=== PATIENT | male | born 1950 | race Caucasian/White ===

== ENCOUNTER 2021-12-10 17:28 | Inpatient (IN) ==
[2021-12-10] MEDS ORDERED: SODIUM CHLORIDE 0.9% 250 ML IV PRN (17:48)
--- NOTE | 2021-12-10 18:04 | Emergency Department Note ---
Impression & Plan Fever, Neutropenia, COVID-19, Anemia, Multiple myeloma, Hypomagnesemia ED Provider Note NAME: KEIRA REYNOLDS JR AGE: 71 SEX: M : 1950 ARRIVES VIA: Walk-In INFORMANT: [Patient] ED PROVIDER(S): [Kirk Thomas MD] CHIEF COMPLAINT: DrSony Hernandez HISTORY OF PRESENT ILLNESS: The patient is a 71-year-old male with a history of multiple myeloma. He has undergone a stem cell transplant. He receives IV chemotherapy with the last dose on the of this month, 9 days ago. The patient states that he began with a cough and feeling tired and somewhat short of breath about a week ago. 4 days ago, he tested positive for COVID. Since testing positive, he has develope d a fever. The patient was seen at the [facility]. His hemoglobin was found to be around 6. He was told that he required a hospital stay. He left [place] and came here as this is the hospital where he gets all of his care. 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 The patient admits to diarrhea but this is chronic. There has been no vomiting. He does not have any new pain. The patient was told by his doctor that he likely would need a hospital stay and may be even a red blood cell transfusion. REVIEW OF SYSTEMS: See HPI for pertinent positives and negatives. A total of ten systems were reviewed and were otherwise negative. PMHx/PSHx: See Below SOCIAL HISTORY: See Below. PHYSICAL EXAM: GENERAL: Patient is in no acute distress. HEENT: No acute trauma, normocephalic atraumatic, mucous membranes moist, no nasal congestion, no scleral icterus. NECK: No stridor, no adenopathy, no meningismus, trachea is midline. LUNGS: Clear to auscultation bilaterally, no wheeze, no rhonchi, breath sounds equal. HEART: Mildly tachycardic, regular rhythm, no murmurs. ABDOMEN: Soft, nontender, bowel sounds positive, no peritonitis. EXTREMITIES: No cyanosis or edema, full range of motion of all the joints without pain or difficulty, no signs for acute trauma. NEUROLOGIC: Oriented x 3, no acute motor or sensory deficits, no focal weakness. SKIN: No rash, no jaundice, no diaphoresis. Pale. DIFFERENTIAL DIAGNOSIS: Sepsis, UTI, COVID-19, influenza, pneumonia, metabolic abnormality, electrolyte abnormalities, cardiac sources, cellulitis, bacteremia, intracerebral event, anemia, toxicologic etiology, neurologic event, as well as other pathologies. EMERGENCY DEPARTMENT COURSE/PROCEDURES: ECG: Indication was weakness and shortness of breath. The ECG shows a normal sinus rhythm with a rate of 99. There is an old inferior infarct. There is no ST elevation, no PVCs. The QTc is 482 Continuous Cardiac Monitoring: An order was placed for continuous cardiac monitoring. The monitor shows a rate of 104 with sinus tachycardia. Critical Care Note: I have personally spent 48 minutes of critical care time in the direct management of this patient. This includes bedside care, interpretation of diagnostic studies, and testing, discussion with consultants, patient, and family members, and other required patient management activities. This 48 minutes is in excess of all separately billable procedures. MEDICAL DECISION MAKING: There is a neutropenia noted. Total ANC was 0.8. The patient was anemic with a hemoglobin of 9. Platelet count was low at 38. No concerning coagulopathy. Magnesium low 1.4, no renal failure. Lactic acid level is not elevated making severe sepsis less likely. No concerning liver enzyme elevation. ECG shows a normal sinus rhythm, no obvious ischemia. Cardiac enzyme testing x1 is very slightly elevated, likely from mismatch although, this troponin can be trended. Respiratory bio fire testing was positive for COVID-19. Chest x-ray did not show pneumonia or CHF. On exam, the patient was febrile and mildly tachycardic. Patient was given IV magnesium, he was given oral Tylenol. The patient is neutropenic with a fever. He is short of breath and coughing. He has COVID-19. His magnesium is quite low. With his health issues, with his complaints, I do think a hospital stay is warranted. 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 The on-call hospitalist was consulted. Past Med/Surg History Medical History Multiple myeloma Social History Smoking Status: Never smoker Preferred Language: Kyrgyz Feels Safe at Home: Yes Results & Data (ED) Vital Signs Vital Signs - 24 hr 12/10/21 17:30 12/10/21 18:42 12/10/21 19:51 Temperature 37.6 C H 38 C H Temperature Source Temporal Artery Scan Oral Pulse Rate 104 H Pulse Rate [Apical] 97 H 92 H Pulse Rhythm Regular Pulse Rhythm [Apical] Regular Pulse Strength [Apical] Normal Respiratory Rate 20 20 17 Respiratory Effort / Characteristics Non-Labored Non-Labored Spontaneous Respiratory Depth Normal Respiratory Pattern Regular Blood Pressure 139/64 Blood Pressure [Left Arm] 125/58 L 130/105 H Blood Pressure Mean 89 Blood Pressure Mean [Left Arm] 80 113 Blood Pressure Position Sitting Blood Pressure Position [Left Arm] Sitting Pulse Oximetry 94 96 97 Oxygen Delivery Method Room Air Room Air Room Air Sepsis Recent Fever Within 48 Hours Yes Sepsis New/Unexplained Change in Mental Status No Sepsis Action Taken by Nursing No Action Required Home Medications Current Medication List: was personally reviewed by me Laboratory Data Attestation: I reviewed the patient's lab results. Result diagrams: 12/10/21 18:35 12/10/21 18:35 Lab Results 12/10/21 12/10/21 12/10/21 Range/Units 18:17 18:35 18:35 WBC 1.47 L (4.8-10.8) K/uL RBC 3.48 L (4.7-6.1) M/uL Hgb 9.1 L (14.0-18.0) g/dL Hct 29.8 L (42-52) % MCV 85.6 (80-100) fL MCH 26.1 (25-34) pg MCHC 30.5 L (32-36) g/dL RDW Std Deviation 52.2 H (36.4-46.3) fL RDW Coeff of Zohra 16.6 H (11.5-14.5) % Plt Count 38 L (130-400) K/uL Neutrophils % (Manual) 58.3 % Lymphocytes % (Manual) 37.4 % Monocytes % (Manual) 4.3 % Neutrophils # (Manual) 0.86 L (1.4-6.5) K/uL Total Absolute Neuts 0.86 L* (1.4-6.5) K/uL Lymphocytes # (Manual) 0.55 L (1.2-3.4) K/uL Total Abs Lymphocytes 0.55 L (1.2-3.4) K/uL Monocytes # (Manual) 0.06 L (0.11-0.59) K/uL Platelet Estimate Decreased L (Normal) Giant Platelets 1+ Hypochromasia Present PT (9.0-12.0) Seconds INR (0.9-1.1) APTT (21.0-31.0) Seconds PTT Ratio Sodium (136-145) mmol/L Potassium (3.5-5.1) mmol/L Chloride (98-107) mmol/L Carbon Dioxide (21-32) mmol/L Anion Gap (3-11) BUN (6-23) mg/dl Creatinine (0.6-1.4) mg/dl Est Cr Clr Drug Dosing ml/min Est GFR ( Amer) ml/min Est GFR (Non-Af Amer) ml/min BUN/Creatinine Ratio (10-20) Glucose (70-99(Fasting)) mg/dl Lactate (0.4-2.0) mmol/L Calcium (8.5-10.1) mg/dl Magnesium (1.7-2.4) mg/dl Total Bilirubin (0.2-1.0) mg/dl AST (13-39) U/L ALT (7-52) U/L Alkaline Phosphatase (34-104) U/L Troponin I High Sens (0-20) pg/ml Total Protein (6.0-8.3) gm/dl Albumin (3.4-5.0) gm/dl Globulin (2.5-4.0) gm/dl Albumin/Globulin Ratio (0.9-2) Procalcitonin (0-0.5) ng/ml Adenovirus (PCR) Not Detected (NotDetected) B. pertussis DNA (PCR) Not Detected (NotDetected) B.parapertussis DNA PCR Not Detected (NotDetected) C. pneumoniae DNA (PCR) Not Detected (NotDetected) Coronavirus OC43 (PCR) Not Detected (NotDetected) Coronavirus HKU1 (PCR) Not Detected (NotDetected) Coronavirus 229E (PCR) Not Detected (NotDetected) SARS-CoV-2 (PCR) DETECTED A* (NotDetected) Coronavirus NL63 (PCR) Not Detected (NotDetected) Human Metapneumovir PCR Not Detected (NotDetected) Influenza Type A (PCR) Not Detected (NotDetected) Influenza Type B (PCR) Not Detected (NotDetected) M. pneumoniae (PCR) Not Detected (NotDetected) Parainfluenza 1 (PCR) Not Detected (NotDetected) Parainfluenza 2 (PCR) Not Detected (NotDetected) Parainfluenza 3 (PCR) Not Detected (NotDetected) Parainfluenza 4 (PCR) Not Detected (NotDetected) RSV (PCR) Not Detected (NotDetected) Entero/Rhino (PCR) Not Detected (NotDetected) Crossmatch See Detail 12/10/21 12/10/21 12/10/21 Range/Units 18:35 18:35 18:35 WBC (4.8-10.8) K/uL RBC (4.7-6.1) M/uL Hgb (14.0-18.0) g/dL Hct (42-52) % MCV (80-100) fL MCH (25-34) pg MCHC (32-36) g/dL RDW Std Deviation (36.4-46.3) fL RDW Coeff of Zohra (11.5-14.5) % Plt Count (130-400) K/uL Neutrophils % (Manual) % Lymphocytes % (Manual) % Monocytes % (Manual) % Neutrophils # (Manual) (1.4-6.5) K/uL Total Absolute Neuts (1.4-6.5) K/uL Lymphocytes # (Manual) (1.2-3.4) K/uL Total Abs Lymphocytes (1.2-3.4) K/uL Monocytes # (Manual) (0.11-0.59) K/uL Platelet Estimate (Normal) Giant Platelets Hypochromasia PT 11.7 (9.0-12.0) Seconds INR 1.1 (0.9-1.1) APTT 36.2 H (21.0-31.0) Seconds PTT Ratio 1.3 Sodium 140 (136-145) mmol/L Potassium 3.8 (3.5-5.1) mmol/L Chloride 109 H (98-107) mmol/L Carbon Dioxide 22 (21-32) mmol/L Anion Gap 9 (3-11) BUN 18 (6-23) mg/dl Creatinine 1.39 (0.6-1.4) mg/dl Est Cr Clr Drug Dosing 62.2 ml/min Est GFR ( Amer) 58.7 ml/min Est GFR (Non-Af Amer) 50.6 ml/min BUN/Creatinine Ratio 12.9 (10-20) Glucose 147 H (70-99(Fasting)) mg/dl Lactate 0.9 (0.4-2.0) mmol/L Calcium 8.2 L (8.5-10.1) mg/dl Magnesium 1.4 L (1.7-2.4) mg/dl Total Bilirubin 0.5 (0.2-1.0) mg/dl AST 20 (13-39) U/L ALT 20 (7-52) U/L Alkaline Phosphatase 34 (34-104) U/L Troponin I High Sens 22.1 H (0-20) pg/ml Total Protein 6.1 (6.0-8.3) gm/dl Albumin 3.6 (3.4-5.0) gm/dl Globulin 2.5 (2.5-4.0) gm/dl Albumin/Globulin Ratio 1.4 (0.9-2) Procalcitonin (0-0.5) ng/ml Adenovirus (PCR) (NotDetected) B. pertussis DNA (PCR) (NotDetected) B.parapertussis DNA PCR (NotDetected) C. pneumoniae DNA (PCR) (NotDetected) Coronavirus OC43 (PCR) (NotDetected) Coronavirus HKU1 (PCR) (NotDetected) Coronavirus 229E (PCR) (NotDetected) SARS-CoV-2 (PCR) (NotDetected) Coronavirus NL63 (PCR) (NotDetected) Human Metapneumovir PCR (NotDetected) Influenza Type A (PCR) (NotDetected) Influenza Type B (PCR) (NotDetected) M. pneumoniae (PCR) (NotDetected) Parainfluenza 1 (PCR) (NotDetected) Parainfluenza 2 (PCR) (NotDetected) Parainfluenza 3 (PCR) (NotDetected) Parainfluenza 4 (PCR) (NotDetected) RSV (PCR) (NotDetected) Entero/Rhino (PCR) (NotDetected) Crossmatch 12/10/21 Range/Units 18:35 WBC (4.8-10.8) K/uL RBC (4.7-6.1) M/uL Hgb (14.0-18.0) g/dL Hct (42-52) % MCV (80-100) fL MCH (25-34) pg MCHC (32-36) g/dL RDW Std Deviation (36.4-46.3) fL RDW Coeff of Zohra (11.5-14.5) % Plt Count (130-400) K/uL Neutrophils % (Manual) % Lymphocytes % (Manual) % Monocytes % (Manual) % Neutrophils # (Manual) (1.4-6.5) K/uL Total Absolute Neuts (1.4-6.5) K/uL Lymphocytes # (Manual) (1.2-3.4) K/uL Total Abs Lymphocytes (1.2-3.4) K/uL Monocytes # (Manual) (0.11-0.59) K/uL Platelet Estimate (Normal) Giant Platelets Hypochromasia PT (9.0-12.0) Seconds INR (0.9-1.1) APTT (21.0-31.0) Seconds PTT Ratio Sodium (136-145) mmol/L Potassium (3.5-5.1) mmol/L Chloride (98-107) mmol/L Carbon Dioxide (21-32) mmol/L Anion Gap (3-11) BUN (6-23) mg/dl Creatinine (0.6-1.4) mg/dl Est Cr Clr Drug Dosing ml/min Est GFR ( Amer) ml/min Est GFR (Non-Af Amer) ml/min BUN/Creatinine Ratio (10-20) Glucose (70-99(Fasting)) mg/dl Lactate (0.4-2.0) mmol/L Calcium (8.5-10.1) mg/dl Magnesium (1.7-2.4) mg/dl Total Bilirubin (0.2-1.0) mg/dl AST (13-39) U/L ALT (7-52) U/L Alkaline Phosphatase (34-104) U/L Troponin I High Sens (0-20) pg/ml Total Protein (6.0-8.3) gm/dl Albumin (3.4-5.0) gm/dl Globulin (2.5-4.0) gm/dl Albumin/Globulin Ratio (0.9-2) Procalcitonin 0.35 (0-0.5) ng/ml Adenovirus (PCR) (NotDetected) B. pertussis DNA (PCR) (NotDetected) B.parapertussis DNA PCR (NotDetected) C. pneumoniae DNA (PCR) (NotDetected) Coronavirus OC43 (PCR) (NotDetected) Coronavirus HKU1 (PCR) (NotDetected) Coronavirus 229E (PCR) (NotDetected) SARS-CoV-2 (PCR) (NotDetected) Coronavirus NL63 (PCR) (NotDetected) Human Metapneumovir PCR (NotDetected) Influenza Type A (PCR) (NotDetected) Influenza Type B (PCR) (NotDetected) M. pneumoniae (PCR) (NotDetected) Parainfluenza 1 (PCR) (NotDetected) Parainfluenza 2 (PCR) (NotDetected) Parainfluenza 3 (PCR) (NotDetected) Parainfluenza 4 (PCR) (NotDetected) RSV (PCR) (NotDetected) Entero/Rhino (PCR) (NotDetected) Crossmatch Administered Medications Discontinued Medications Acetaminophen (Acetaminophen 500 Mg Tab) 1,000 mg PO NOW STA Stop: 12/10/21 20:13 Last Admin: 12/10/21 20:33 Dose: 1,000 mg Documented by: [id number] Magnesium Sulfate/Dextrose (Magnesium Sulfate / D5w) 1 gm in 100 mls @ 100 mls/hr IV NOW STA Stop: 12/10/21 21:11 Last Admin: 12/10/21 20:34 Dose: 100 mls/hr Documented by: [id number] Imaging Data Radiologist's Impression: Chest X-Ray 12/10/21 17:48 XR chest 1V portable CLINICAL HISTORY: SEPSIS TECHNIQUE: Single frontal radiograph of the chest was obtained. Comparison: None available at the time of this dictation. FINDINGS: No lines and tubes are seen. The cardiomediastinal silhouette is normal. The lungs are clear. No evidence of pleural effusion or pneumothorax. IMPRESSION: No acute abnormalities and in particular no evidence of pneumonia. ACT 112: Negative or not required by law. Electronically signed by: Parker Tripathi M.D. 12/10/2021 6:04 PM Discharge Plan Visit Data Chief Complaint: Referred by Doctor Stated Complaint: REF BY , BHAVANI PT, OBSERVATION ED Provider: Kirk Thomas Discharge Problem: Fever, Neutropenia, COVID-19, Anemia, Multiple myeloma, Hypomagnesemia Patient Disposition: Admitted As Inpatient Condition: Fair Forms Stand Alone Forms: [facility] Referrals Referrals: PCP,NO [Primary Care Provider] -
[2021-12-10 19:18] LABS: INR 1.1 (0.9-1.1); Partial Thromboplastin Ratio 1.3; Partial Thromboplastin Time 36.2 Seconds (21.0-31.0); Prothrombin Time 11.7 Seconds (9.0-12.0)
[2021-12-10 19:31] LABS: Troponin I High Sensitivity 22.1 pg/ml (0-20)
[2021-12-10 19:32] LABS: Albumin Globulin Ratio 1.4 (0.9-2); Albumin Level 3.6 gm/dl (3.4-5.0); BUN Creatinine Ratio 12.9 (10-20); Bilirubin,Total 0.5 mg/dl (0.2-1.0); Calcium 8.2 mg/dl (8.5-10.1); Creatinine Clr Calc Pharmacy 62.2 ml/min; Est GFR (African American) 58.7 ml/min; Est GFR (Non-African American) 50.6 ml/min; Globulin 2.5 gm/dl (2.5-4.0); Hematocrit (blood only) 29.8 % (42-52); Hemoglobin 9.1 g/dL (14.0-18.0); Magnesium 1.4 mg/dl (1.7-2.4); Mean Corpuscular Hemoglobin 26.1 pg (25-34); Mean Corpuscular Hgb Conc 30.5 g/dL (32-36); Mean Corpuscular Volume 85.6 fL (80-100); Potassium 3.8 mmol/L (3.5-5.1); RDW Coefficient of Variation 16.6 % (11.5-14.5); RDW Standard Deviation 52.2 fL (36.4-46.3); Red Blood Count 3.48 M/uL (4.7-6.1); Total Protein 6.1 gm/dl (6.0-8.3); White Blood Count 1.47 K/uL (4.8-10.8)
[2021-12-10 19:39] LABS: Platelet Count 38 K/uL (130-400)
[2021-12-10 19:40] LABS: Giant Platelets 1+; Hypochromasia Present; Platelet Estimate Decreased (Normal)
[2021-12-10 19:41] LABS: ALC (manual) 0.55 K/uL (1.2-3.4); ANC (manual) 0.86 K/uL (1.4-6.5); Lymphocytes # (manual) 0.55 K/uL (1.2-3.4); Lymphocytes % (manual) 37.4 %; Monocytes # (manual) 0.06 K/uL (0.11-0.59); Monocytes % (manual) 4.3 %; Neutrophils # (manual) 0.86 K/uL (1.4-6.5); Neutrophils % (manual) 58.3 %
[2021-12-10] MEDS ORDERED: ACETAMINOPHEN 500 MG TAB PO STA (20:12)
[2021-12-10] MEDS ORDERED: MAGNESIUM SULFATE / D5W 1 GM/100 ML BAG IV STA (20:12)
[2021-12-10 20:13] LABS: Adenovirus PCR Not Detected (NotDetected); Bordetella parapertussis PCR Not Detected (NotDetected); Bordetella pertussis PCR Not Detected (NotDetected); Chlamydia pneumoniae PCR Not Detected (NotDetected); Coronavirus 229E PCR Not Detected (NotDetected); Coronavirus HKU1 PCR Not Detected (NotDetected); Coronavirus NL63 PCR Not Detected (NotDetected); Coronavirus OC43PCR Not Detected (NotDetected); Human Metapneumovirus PCR Not Detected (NotDetected); Influenza A PCR Not Detected (NotDetected); Influenza B PCR Not Detected (NotDetected); Mycoplasma pneumoniae PCR Not Detected (NotDetected); Parainfluenza Virus 1 PCR Not Detected (NotDetected); Parainfluenza Virus 2 PCR Not Detected (NotDetected); Parainfluenza Virus 3 PCR Not Detected (NotDetected); Parainfluenza Virus 4 PCR Not Detected (NotDetected); Respiratory Syncytial VirusPCR Not Detected (NotDetected); Rhinovirus/Enterovirus PCR Not Detected (NotDetected)
[2021-12-10 20:19] LABS: Coronavirus CoV-2 (COVID19)PCR DETECTED (NotDetected)
[2021-12-10] MEDS ORDERED: MAGNESIUM SULFATE / D5W 1 GM/100 ML BAG IV ONE (21:05)
--- NOTE | 2021-12-10 22:11 | History & Physical Report ---
Date of Service December 10, 2021 Assessment & Plan (1) Sepsis: Plan: Secondary to COVID-19 pneumonia Immunocompromised patient. 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 No indication for antibiotics, steroid Rx for now. Patient may be eligible for Paxlovid given immunocompromise however medication is not available inpatient. Basal bolus insulin, ISS BG goal 1 10-1 40, carb count coverage, update hemogl obin A1c Dedicated imaging for left renal mass at some point. DVT prophylaxis. [employer] Full code Text document was generated using Lydia voice recognition software. It may contain grammatical or spelling errors. Kindly contact undersigned for clarification of any documentation item in question. History of Present Illness Chief Complaint: COVID-19 infection Primary Care Provider: Dr. Cardona History obtained from patient and records. 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 Last week, patient noted cough symptoms productive of clear sputum with fever. No chest pain, no shortness of breath. Fatigue symptoms and muscle aches. Possible COVID-19 contacts. Patient completed COVID-19 vaccination. Usual loose stools, achy right lower quadrant pain. Patient consulted [facility] ER. COVID-19 test positive. Admission recommended but patient signed out AGAINST MEDICAL ADVICE. Patient directed to [facility] ER by outpatient providers today for further evaluation. 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 Allergies Allergy/AdvReac Type Severity Reaction Status Date / Time doxycycline Allergy Diarrhea Verified 12/11/21 00:42 latex Allergy Rash Verified 12/11/21 00:42 Home Medications Medication Instructions Recorded Confirmed Type Acetaminophen Extra Strength 1 tab Q4 PRN 12/11/21 12/11/21 History Aspir-81 81 mg DAILY 12/11/21 12/11/21 History Lactobacillus acidophilus 1 tab DAILY 12/11/21 12/11/21 History acyclovir 800 mg tablet 800 mg BID 12/11/21 12/11/21 History apixaban 5 mg tablet (Eliquis) 5 mg HS 12/11/21 12/11/21 History cholecalciferol (vitamin D3) 1 tab DAILY 12/11/21 12/11/21 History dulaglutide 3 mg/0.5 mL 3 mg SUBCUT WK 12/11/21 12/11/21 History subcutaneous pen injector (Trulicity) duloxetine 60 mg capsule,delayed 60 mg PO BID 12/11/21 12/11/21 History release fenofibrate nanocrystallized 48 mg 48 mg PO DAILY 12/11/21 12/11/21 History tablet ferrous gluconate 324 mg (38 mg 325 mg DAILY 12/11/21 12/11/21 History iron) tablet insulin glargine 100 unit/mL (3 76 unit SUBCUT DAILY 12/11/21 12/11/21 History mL) subcutaneous pen (Lantus Solostar U-100 Insulin) losartan 25 mg tablet See Rx Instructions .ROUTE .COMPLEX 12/11/21 12/11/21 History magnesium oxide 400 mg DAILY 12/11/21 12/11/21 History metoprolol succinate 50 mg 50 mg PO DAILY 12/11/21 12/11/21 History tablet,extended release 24 hr multivitamin 1 tab DAILY 12/11/21 12/11/21 History omeprazole 40 mg capsule,delayed 40 mg DAILY 12/11/21 12/11/21 History release rosuvastatin 40 mg tablet 40 mg DAILY 12/11/21 12/11/21 History sertraline 200 mg capsule 200 mg PO DAILY 12/11/21 12/11/21 History simethicone See Rx Instructions .ROUTE .COMPLEX 12/11/21 12/11/21 History trazodone 100 mg tablet 100 mg HS 12/11/21 12/11/21 History Past Med/Surg History Medical History Multiple myeloma Social History Smoking Status: Never smoker Second Hand Exposure: No; Do You Dip or Chew Tobacco: No; Hx Alcohol Use: No Hx Substance Use: No Preferred Language: Venezuelan Communication Ability: Effective Production Grip Required: No Beliefs That Will Affect Care: None Current Living Situation: Alone Feels Safe at Home: Yes Safety Concerns: Feels Safe At This Time Assistive Devices: Glasses Assistive Devices Comment: upper and lower partials- at home Review of Systems Review of Systems: As per HPI, all other systems reviewed and negative Physical Exam Physical Exam: GENERAL: Comfortable, morbidly obese, no respiratory distress SKIN: Pallor, warm HEENT: Pale palpebral conjunctivae, no ptosis, dry buccal mucosa NECK : Supple, short neck, no tenderness CHEST : Decreased breath sounds, no tenderness HEART : RRR, no obvious murmurs ABDOMEN: Some distention, nontender EXTREMITIES : Bilateral LE swelling, no LE tenderness, no other conspicuous deformities noted NEUROLOGIC : Coherent, no facial asymmetry, no other gross focality Results & Data Results & Data ([facility]) Vital Signs (Past 12 Hours) Vital Signs Temp Pulse Pulse Resp BP BP Pulse Ox 12/10/21 19:51 38 C H 92 H 17 130/105 H 97 12/10/21 18:42 97 H 20 125/58 L 96 12/10/21 17:30 37.6 C H 104 H 20 139/64 94 Laboratory Results Laboratory Results WBC 1.47 K/uL (4.8-10.8) L 12/10/21 18:35 RBC 3.48 M/uL (4.7-6.1) L 12/10/21 18:35 Hgb 9.1 g/dL (14.0-18.0) L 12/10/21 18:35 Hct 29.8 % (42-52) L 12/10/21 18:35 MCV 85.6 fL (80-100) 12/10/21 18:35 MCH 26.1 pg (25-34) 12/10/21 18:35 MCHC 30.5 g/dL (32-36) L 12/10/21 18:35 RDW Std Deviation 52.2 fL (36.4-46.3) H 12/10/21 18:35 RDW Coeff of Zohra 16.6 % (11.5-14.5) H 12/10/21 18:35 Plt Count 38 K/uL (130-400) L 12/10/21 18:35 Neutrophils % (Manual) 58.3 % 12/10/21 18:35 Lymphocytes % (Manual) 37.4 % 12/10/21 18:35 Monocytes % (Manual) 4.3 % 12/10/21 18:35 Neutrophils # (Manual) 0.86 K/uL (1.4-6.5) L 12/10/21 18:35 Total Absolute Neuts 0.86 K/uL (1.4-6.5) L* 12/10/21 18:35 Lymphocytes # (Manual) 0.55 K/uL (1.2-3.4) L 12/10/21 18:35 Total Abs Lymphocytes 0.55 K/uL (1.2-3.4) L 12/10/21 18:35 Monocytes # (Manual) 0.06 K/uL (0.11-0.59) L 12/10/21 18:35 Platelet Estimate Decreased (Normal) L 12/10/21 18:35 Giant Platelets 1+ 12/10/21 18:35 Hypochromasia Present 12/10/21 18:35 PT 11.7 Seconds (9.0-12.0) 12/10/21 18:35 INR 1.1 (0.9-1.1) 12/10/21 18:35 APTT 36.2 Seconds (21.0-31.0) H 12/10/21 18:35 PTT Ratio 1.3 12/10/21 18:35 Sodium 140 mmol/L (136-145) 12/10/21 18:35 Potassium 3.8 mmol/L (3.5-5.1) 12/10/21 18:35 Chloride 109 mmol/L (98-107) H 12/10/21 18:35 Carbon Dioxide 22 mmol/L (21-32) 12/10/21 18:35 Anion Gap 9 (3-11) 12/10/21 18:35 BUN 18 mg/dl (6-23) 12/10/21 18:35 Creatinine 1.39 mg/dl (0.6-1.4) 12/10/21 18:35 Est Cr Clr Drug Dosing 62.2 ml/min 12/10/21 18:35 Est GFR ( Amer) 58.7 ml/min 12/10/21 18:35 Est GFR (Non-Af Amer) 50.6 ml/min 12/10/21 18:35 BUN/Creatinine Ratio 12.9 (10-20) 12/10/21 18:35 Glucose 147 mg/dl (70-99(Fasting)) H 12/10/21 18:35 Lactate 0.9 mmol/L (0.4-2.0) 12/10/21 18:35 Calcium 8.2 mg/dl (8.5-10.1) L 12/10/21 18:35 Magnesium 1.4 mg/dl (1.7-2.4) L 12/10/21 18:35 Total Bilirubin 0.5 mg/dl (0.2-1.0) 12/10/21 18:35 AST 20 U/L (13-39) 12/10/21 18:35 ALT 20 U/L (7-52) 12/10/21 18:35 Alkaline Phosphatase 34 U/L (34-104) 12/10/21 18:35 Troponin I High Sens 22.1 pg/ml (0-20) H 12/10/21 18:35 Total Protein 6.1 gm/dl (6.0-8.3) 12/10/21 18:35 Albumin 3.6 gm/dl (3.4-5.0) 12/10/21 18:35 Globulin 2.5 gm/dl (2.5-4.0) 12/10/21 18:35 Albumin/Globulin Ratio 1.4 (0.9-2) 12/10/21 18:35 Procalcitonin 0.35 ng/ml (0-0.5) 12/10/21 18:35 Adenovirus (PCR) Not Detected (NotDetected) 12/10/21 18:17 B. pertussis DNA (PCR) Not Detected (NotDetected) 12/10/21 18:17 B.parapertussis DNA PCR Not Detected (NotDetected) 12/10/21 18:17 C. pneumoniae DNA (PCR) Not Detected (NotDetected) 12/10/21 18:17 Coronavirus OC43 (PCR) Not Detected (NotDetected) 12/10/21 18:17 Coronavirus HKU1 (PCR) Not Detected (NotDetected) 12/10/21 18:17 Coronavirus 229E (PCR) Not Detected (NotDetected) 12/10/21 18:17 SARS-CoV-2 (PCR) DETECTED (NotDetected) A* 12/10/21 18:17 Coronavirus NL63 (PCR) Not Detected (NotDetected) 12/10/21 18:17 Human Metapneumovir PCR Not Detected (NotDetected) 12/10/21 18:17 Influenza Type A (PCR) Not Detected (NotDetected) 12/10/21 18:17 Influenza Type B (PCR) Not Detected (NotDetected) 12/10/21 18:17 M. pneumoniae (PCR) Not Detected (NotDetected) 12/10/21 18:17 Parainfluenza 1 (PCR) Not Detected (NotDetected) 12/10/21 18:17 Parainfluenza 2 (PCR) Not Detected (NotDetected) 12/10/21 18:17 Parainfluenza 3 (PCR) Not Detected (NotDetected) 12/10/21 18:17 Parainfluenza 4 (PCR) Not Detected (NotDetected) 12/10/21 18:17 RSV (PCR) Not Detected (NotDetected) 12/10/21 18:17 Entero/Rhino (PCR) Not Detected (NotDetected) 12/10/21 18:17 Blood Type A Positive 12/10/21 18:56 Blood Type Recheck A Positive 12/10/21 19:40 Antibody Screen NEGATIVE 12/10/21 18:56 Crossmatch See Detail 12/10/21 18:35 Impressions Chest X-Ray 12/10/21 17:48 XR chest 1V portable CLINICAL HISTORY: SEPSIS TECHNIQUE: Single frontal radiograph of the chest was obtained. Comparison: None available at the time of this dictation. FINDINGS: No lines and tubes are seen. The cardiomediastinal silhouette is normal. The lungs are clear. No evidence of pleural effusion or pneumothorax. IMPRESSION: No acute abnormalities and in particular no evidence of pneumonia. ACT 112: Negative or not required by law. Electronically signed by: Parker Tripathi M.D. 12/10/2021 6:[address] abdomen pelvis: 1. Groundglass nodules in the bilateral lower lungs likely reflect infectious/inflammatory process. 2. 7 cm defect in the right abdominal wall with herniation of a loop of bowel. 3. Postsurgical changes in the cecum. 4. 13 mm exophytic lesion in the left kidney inferior pole may represent a fe nikhil lobulation or hemorrhagic/proteinaceous cyst, malignancy cannot be entirely excluded. If not previously evaluated, ultrasound and/or nonemergent CT or MR renal mass protocol can be performed. EKG as per my interpretation: Rate 100, NSR, normal axis, incomplete RBBB, T wave abnormalities inferior leads, inferior infarct
[2021-12-10] MEDS ORDERED: OPTIRAY 320 100ml IV ONE (22:30)
--- NOTE | 2021-12-10 22:54 | CT Scan Report ---
CT abd pelvis IV con only CLINICAL HISTORY: RLQ pain TECHNIQUE: Helical axial images of the abdomen and pelvis were obtained and displayed. Automated dose lowering techniques and/or adjustment according to patient size were utilized for this exam. This e xam was performed with intravenous contrast. CT DOSE: 1518.89 mGy.cm COMPARISON: None available at the time of this dictation. FINDINGS: Lower chest: Bibasilar opacities are seen in the bilateral lung bases. Liver: Unremarkable. No focal lesions are seen. Gallbladder and biliary tree: Patient is status post cholecystectomy. No intra- or extrahepatic bilia ry ductal dilation. Pancreas: Unremarkable, no focal lesions. Spleen: Unremarkable. Adrenals: Unremarkable. Kidneys and ureters: A 13 mm exophytic lesion is seen in the left kidney inferior pole. Patient is st atus post right nephrectomy. Bladder: Unremarkable. Reproductive organs: Unremarkable. Bowel: Postsurgical changes are seen in the cecum. Multiple loops of bowel are herniated through the right mid abdomen abdominal wall. Lymph nodes Retroperitoneal: Unremarkable. Mesenteric: Unremarkable. Pelvic: Unremarkable. Peritoneum: Normal. Vessels: Atherosclerotic calcifications are seen. Abdominal wall: Bilateral fat-containing inguinal hernias are seen. A right mid abdomen hernia with a 7 cm neck is seen containing multiple loops of bowel. Midline fat-containing hernia is in the upper abdomen. Bones: Degenerative changes in the visualized spine. IMPRESSION: 1. Groundglass nodules in the bilateral lower lungs likely reflect infectious/inflammatory process. 2. 7 cm defect in the right abdominal wall with herniation of a loop of bowel. 3. Postsurgical changes in the cecum. 4. 13 mm exophytic lesion in the left kidney inferior pole may represent a lobulation or hemor rhagic/proteinaceous cyst, malignancy cannot be entirely excluded. If not previously evaluated, ultra sound and/or nonemergent CT or MR renal mass protocol can be performed. ACT 112: Negative or not required by law. Electronically signed by: Parker Tripathi M.D. 12/10/2021 10:52 PM
[2021-12-10 23:15] LABS: Appearance Urine Clear (Clear); Bacteria Urine Automated Negative (Negative); Bilirubin Urine Negative (Negative); Blood Urine Negative (Negative); Cast Urine Automated 0 /lpf (0-5); Color Urine Yellow; Glucose Urine UA Negative (Negative); Ketones Urine Negative (Negative); Leukocyte Esterase Urine Negative (Negative); Nitrite Urine Negative (Negative); Protein Urine 2+ (Negative); RBC Urine Automated 0-4 /hpf (0-4); Specific Gravity Urine 1.017 (1.000-1.030); Urobilinogen Urine Negative (Negative); WBC Urine Automated 0 /hpf (0-5)
[2021-12-11] MEDS ORDERED: DEXTROSE 50% 50 ML SYRINGE IV PRN (00:14)
[2021-12-11] MEDS ORDERED: GLUCOSE 10 TAB/TUBE PO PRN (00:14)
[2021-12-11] MEDS ORDERED: CARBOHYDRATES FOR HYPOGLYCEMIA PO PRN (00:14)
[2021-12-11] MEDS ORDERED: GLUCAGON FOR INJ 1 MG VIAL SQ PRN (00:14)
[2021-12-11] MEDS ORDERED: LACTATED RINGER'S 1,000 ML IV ONE ×2 (00:14→20:39)
[2021-12-11] MEDS ORDERED: GLUCOSE 40% GEL 15 GM TUBE PO PRN (00:14)
[2021-12-11] MEDS ORDERED: APIXABAN 5 MG TABLET PO STA (00:26)
[2021-12-11] MEDS ORDERED: ACYCLOVIR 400 MG TAB PO STA (00:26)
[2021-12-11] MEDS: Patient's ALLERGY Info needs ENTERED SCH ×2 (00:43→01:24)
[2021-12-11] MEDS: INSULIN ASPART PER UNIT SC SCH ×5 (00:59→21:10)
[2021-12-11] MEDS ORDERED: Nursing to Pharmacy Communication SCH (01:00)
[2021-12-11] MEDS: traZODone HCL 100 MG TAB PO SCH ×2 (01:39→21:09)
[2021-12-11] MEDS: PANTOprazole 40 MG TAB PO SCH ×2 (01:40→21:09)
[2021-12-11 05:36] LABS: Mean Corpuscular Hgb Conc 31.2 g/dL (32-36)
[2021-12-11 05:51] LABS: BUN Creatinine Ratio 10.2 (10-20); Calcium 7.7 mg/dl (8.5-10.1); Creatinine Clr Calc Pharmacy 58.7 ml/min; Est GFR (African American) 54.8 ml/min; Est GFR (Non-African American) 47.3 ml/min; Potassium 3.9 mmol/L (3.5-5.1)
[2021-12-11 06:24] LABS: Hematocrit (blood only) 28.5 % (42-52); Hemoglobin 8.9 g/dL (14.0-18.0); Mean Corpuscular Hemoglobin 26.7 pg (25-34); Mean Corpuscular Volume 85.6 fL (80-100); RDW Coefficient of Variation 16.7 % (11.5-14.5); RDW Standard Deviation 53.2 fL (36.4-46.3); Red Blood Count 3.33 M/uL (4.7-6.1); White Blood Count 1.06 K/uL (4.8-10.8)
[2021-12-11 06:26] LABS: Platelet Count 41 K/uL (130-400)
[2021-12-11 06:28] LABS: Lymphocytes % (auto) 37.7 %; Monocytes # (auto) 0.12 K/uL (0.11-0.59); Monocytes % (auto) 11.3 %; Neutrophils # (auto) 0.54 K/uL (1.4-6.5); Platelet Estimate Decreased (Normal)
[2021-12-11] MEDS: SERTRALINE HCL 100 MG TABLET PO SCH (08:59)
[2021-12-11] MEDS: ACETAMINOPHEN 325 MG TAB PO PRN ×3 (08:59→21:08)
[2021-12-11] MEDS: FERROUS GLUCONATE 324 MG TAB PO SCH (09:00)
[2021-12-11] MEDS ORDERED: APIXABAN 2.5 MG TAB PO SCH (09:00)
[2021-12-11] MEDS ORDERED: APIXABAN 5 MG TABLET PO SCH (09:00)
[2021-12-11] MEDS ORDERED: LOSARTAN POTASSIUM 50 MG TAB PO SCH (09:00)
[2021-12-11] MEDS: FENOFIBRATE NANOCRYSTALLIZED 48 MG TABLET PO SCH (09:00)
[2021-12-11] MEDS ORDERED: INSULIN GLARGINE 100 UNIT/ML VIAL SQ SCH (09:00)
[2021-12-11] MEDS: METOPROLOL SUCC 50MG EXT REL TAB PO SCH (09:00)
[2021-12-11] MEDS: ACYCLOVIR 400 MG TAB PO SCH ×2 (09:01→21:09)
[2021-12-11] MEDS: ASPIRIN 81 MG ECTAB PO SCH (09:04)
[2021-12-11] MEDS: ROSUVASTATIN CALCIUM 20 MG TAB PO SCH (09:04)
[2021-12-11] MEDS: ADVANCED PROBIOTIC 1250 MG CAPSULE PO SCH (09:04)
[2021-12-11] MEDS: INSULIN GLARGINE SOLOSTAR 100 UNITS/ML 3 ML PEN SQ SCH (09:28)
[2021-12-11] MEDS: FILGRASTIM 300 MCG/ML VIAL SQ SCH (12:29)
[2021-12-11] MEDS ORDERED: REMDESIVIR 200 MG in SODIUM CHLORIDE 0.9% 210 ML IV ONE (12:30)
--- NOTE | 2021-12-11 20:04 | Hospitalist Progress Note ---
Date of Service December 11, 2021 delayed entry date of service noted above Assessment & Plan (1) Sepsis: Plan: (1) Sepsis: Plan: Secondary to COVID-19 pneumonia, bilateral Neutropenia on room air LFTs, renal function stable Continue remdesivir Incentive spirometry Neutropenia Multiple myeloma on Velcade discussed with Oncologist Dr. 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 Eliquis Full code plan of care discussed with patient in detail and at length all questions answered he is understanding, agreeable, comfortable with the plan of care Admission and Anticipated Discharge Date Admission Date: December 10, 2021 Subjective ff up for COVID 19 infection, etc seen resting in bed, comfortable states he has intermittent cough but feels improved compared to admission no chest pain, dyspnea, palpitations, dizziness no other symptoms Review of Systems Review of Systems: all noted and negative except for above Physical Exam Physical Exam: General- oriented x 3, not in distress, speaks in sentences with no effort or accessory muscle use Head- atraumatic Eyes- PERRL, EOMI, anicteric ENT- oropharynx clear Neck- supple, no JVD, no adenopathy, no thyromegaly; carotids +2/2, no bruits appreciated Lungs- mild rales at the bases good air entry BL Heart- normal rate, regular rhythm; no murmur, no gallop, no rub appreciated Abdomen- normal bowel sounds, nondistended, soft, nontender, no masses or hepatosplenomegaly (+) abdominal hernia Extremities- no pretibial edema, no calf tenderness; peripheral pulses intact Neuro- alert, oriented x 3; CN 2-12 grossly intact; motor 5/5 bilaterally;sensation 100% on all extremities; no other gross focal neurologic deficits Skin- warm & dry Results & Data Results & Data ([facility]) Vital Signs (Past 12 Hours) Vital Signs Temp Pulse Resp BP Pulse Ox 06/25/22 14:29 37.0 C 76 17 133/78 98 12/11/21 10:18 95 12/11/21 08:50 37.9 C H 82 18 114/64 95 all noted and reviewed including below
[2021-12-11] MEDS: APIXABAN 5 MG TABLET PO SCH (21:09)
[2021-12-11] MEDS: BENZONATATE 100 MG CAPSULE PO PRN (21:22)
[2021-12-12] MEDS: LOPERAMIDE HCL 2 MG CAP PO PRN ×2 (01:42→16:08)
[2021-12-12] MEDS: BENZONATATE 100 MG CAPSULE PO PRN (06:43)
[2021-12-12] MEDS: ACETAMINOPHEN 325 MG TAB PO PRN ×2 (06:43→16:16)
[2021-12-12 07:00] LABS: Hematocrit (blood only) 30.9 % (42-52); Hemoglobin 9.5 g/dL (14.0-18.0); Mean Corpuscular Hemoglobin 26.5 pg (25-34); Mean Corpuscular Hgb Conc 30.7 g/dL (32-36); Mean Corpuscular Volume 86.3 fL (80-100); Platelet Count 70 K/uL (130-400); RDW Coefficient of Variation 16.9 % (11.5-14.5); RDW Standard Deviation 54.5 fL (36.4-46.3); Red Blood Count 3.58 M/uL (4.7-6.1); White Blood Count 2.22 K/uL (4.8-10.8)
[2021-12-12 07:01] LABS: Echinocytes 1+; Immature Granulocytes # (auto) 0.03 K/uL (0.00-0.02); Immature Granulocytes % (auto) 1.4 %; Lymphocytes # (auto) 0.58 K/uL (1.2-3.4); Lymphocytes % (auto) 26.1 %; Neutrophils # (auto) 1.41 K/uL (1.4-6.5); Neutrophils % (auto) 63.5 %; Ovalocytes 1+
[2021-12-12 07:02] LABS: Albumin Globulin Ratio 1.4 (0.9-2); Albumin Level 3.4 gm/dl (3.4-5.0); BUN Creatinine Ratio 13.5 (10-20); Bilirubin,Total 0.5 mg/dl (0.2-1.0); Calcium 7.4 mg/dl (8.5-10.1); Creatinine Clr Calc Pharmacy 58.3 ml/min; Est GFR (African American) 54.4 ml/min; Est GFR (Non-African American) 46.9 ml/min; Globulin 2.5 gm/dl (2.5-4.0); Potassium 3.8 mmol/L (3.5-5.1); Total Protein 5.9 gm/dl (6.0-8.3)
[2021-12-12] MEDS: APIXABAN 5 MG TABLET PO SCH ×2 (08:29→20:58)
[2021-12-12] MEDS: ACYCLOVIR 400 MG TAB PO SCH ×2 (08:29→20:57)
[2021-12-12] MEDS: ROSUVASTATIN CALCIUM 20 MG TAB PO SCH (08:30)
[2021-12-12] MEDS: METOPROLOL SUCC 50MG EXT REL TAB PO SCH (08:30)
[2021-12-12] MEDS: FERROUS GLUCONATE 324 MG TAB PO SCH (08:30)
[2021-12-12] MEDS: ADVANCED PROBIOTIC 1250 MG CAPSULE PO SCH (08:30)
[2021-12-12] MEDS: SERTRALINE HCL 100 MG TABLET PO SCH (08:30)
[2021-12-12] MEDS: FENOFIBRATE NANOCRYSTALLIZED 48 MG TABLET PO SCH (08:30)
[2021-12-12] MEDS: ASPIRIN 81 MG ECTAB PO SCH (08:30)
[2021-12-12] MEDS: FILGRASTIM 300 MCG/ML VIAL SQ SCH (08:31)
[2021-12-12] MEDS: INSULIN GLARGINE SOLOSTAR 100 UNITS/ML 3 ML PEN SQ SCH (09:08)
[2021-12-12] MEDS: INSULIN ASPART PER UNIT SC SCH ×4 (09:08→21:00)
[2021-12-12] MEDS ORDERED: REMDESIVIR 100 MG in SODIUM CHLORIDE 0.9% 230 ML IV SCH (12:00)
[2021-12-12] MEDS ORDERED: ALUMINUM/MAGNESIUM SUSP 30 ML UDC PO PRN (13:28)
[2021-12-12] MEDS ORDERED: DICYCLOMINE HCL 10 MG CAP PO ONE (15:21)
--- NOTE | 2021-12-12 18:15 | Electrocardiogram Report ---
Test Reason : Blood Pressure : / mmHG Vent. Rate : 099 BPM Atrial Rate : 099 BPM P-R Int : 158 ms QRS Dur : 104 ms QT Int : 376 ms P-R-T Axes : 070 017 032 degrees QTc Int : 482 ms Normal sinus rhythm Inferior infarct , age undetermined Abnormal ECG No previous ECGs available Confirmed by Bulmaro Silva ([id number]) on 12/12/2021 6:15:31 PM Referred By: REFERRED SELF Confirmed By:Bulmaro Silva
--- NOTE | 2021-12-12 19:05 | Hospitalist Progress Note ---
Date of Service December 12, 2021 Assessment & Plan (1) Sepsis: Plan: Secondary to COVID-19 pneumonia, bilateral Neutropenia Remains on room air, 98% LFTs, renal function stable Continue remdesivir day #2 Incentive spirometry Neutropenia Multiple myeloma on Velcade Started on Neupogen ANC improved to 1500 If continues to improve, DC Neupogen Diarrhea Likely from COVID 19 infection C. difficile negative Check stool PCR Imodium and Bentyl Monitor closely hx CAD PAF/history PE DVT status post IVC filter placement on Eliquis --Cardiac symptoms Continue Eliquis hypertension, stable hyperlipidemia, on statin Rx DM2 insulin requiring, optimal control as of recent hemoglobin A1c of 8.23 August 2021 --Insulin sliding scale multiple myeloma status post H SCT ongoing chemotherapy on acyclovir suppression Rx AMAURY (CPAP noncompliance) renal oncocytoma status post R nephrectomy chronic pancytopenia secondary to chemotherapy mood disorder, at baseline Left renal mass on CT -- Will need further imaging Will discuss with patient DVT prophylaxis. Eliquis Full code Admission and Anticipated Discharge Date Admission Date: December 10, 2021 Subjective Follow-up for COVID-19 pneumonia, neutropenia, etc. Seen resting in bed, comfortable, not distressed States breathing is fine, has dry cough, no chest pain Reports having diarrhea, abdominal cramping today Mild nausea No other symptom Review of Systems Review of Systems: all noted and negative except for above Physical Exam Physical Exam: General- oriented x 3, not in distress, speaks in sentences with no effort or accessory muscle use Eyes- anicteric Neck- no JVD Lungs-mild rales at the bases, no wheezing, good air entry bilaterally Heart- normal rate, regular rhythm; no murmurs Abdomen- normal bowel sounds, nondistended, soft, chronic abdominal hernia, no tenderness Extremities- no pretibial edema, no calf tenderness Neuro- alert, oriented x 3; no gross focal neurologic deficits Skin- warm & dry Results & Data Results & Data ([facility]) Vital Signs (Past 12 Hours) Vital Signs Temp Pulse Resp BP Pulse Ox 12/12/21 16:15 37.3 C 85 18 128/71 98 12/12/21 08:22 36.8 C 89 18 113/70 98 all noted and reviewed including below
[2021-12-12] MEDS: traZODone HCL 100 MG TAB PO SCH (20:57)
[2021-12-12] MEDS: PANTOprazole 40 MG TAB PO SCH (20:57)
[2021-12-12] MEDS: PROMETHAZINE HCL 12.5 MG in SODIUM CHLORIDE 0.9% 50 ML IV PRN (21:48)
[2021-12-13 01:01] LABS: Adenovirus F 40/41 PCR Not Detected (NotDetected); Astrovirus PCR Not Detected (NotDetected); Campylobacter PCR Not Detected (NotDetected); Clostridium diff Toxin A/B PCR Not Detected (NotDetected); Cryptosporidium PCR Not Detected (NotDetected); Cyclospora cayetanensis PCR Not Detected (NotDetected); Entamoeba histolytica PCR Not Detected (NotDetected); Enteroaggregative E.coli(EAEC) Not Detected (NotDetected); Enteropathogenic E.coli (EPEC) Not Detected (NotDetected); Enterotoxigenic E.coli (ETEC) Not Detected (NotDetected); Giardia lamblia PCR Not Detected (NotDetected); Norovirus GI/GII PCR Not Detected (NotDetected); Plesiomonas shigelloides PCR Not Detected (NotDetected); Rotavirus A PCR Not Detected (NotDetected); Salmonella PCR Not Detected (NotDetected); Sapovirus PCR Not Detected (NotDetected); Shiga-like Toxin E.coli (STEC) Not Detected (NotDetected); Shigella/Enteroinvasive E.coli Not Detected (NotDetected); Vibrio cholerae PCR Not Detected (NotDetected); Vibrio species PCR Not Detected (NotDetected); Yersinia enterocolitica PCR Not Detected (NotDetected)
[2021-12-13] MEDS: LOPERAMIDE HCL 2 MG CAP PO PRN ×2 (02:00→03:12)
[2021-12-13] MEDS: PROMETHAZINE HCL 12.5 MG in SODIUM CHLORIDE 0.9% 50 ML IV PRN (05:38)
[2021-12-13 06:33] LABS: Albumin Globulin Ratio 1.3 (0.9-2); BUN Creatinine Ratio 14.2 (10-20); Bilirubin,Total 0.4 mg/dl (0.2-1.0); Calcium 7.8 mg/dl (8.5-10.1); Creatinine Clr Calc Pharmacy 42.3 ml/min; Est GFR (African American) 36.9 ml/min; Est GFR (Non-African American) 31.8 ml/min; Potassium 3.6 mmol/L (3.5-5.1)
[2021-12-13 06:42] LABS: Hematocrit (blood only) 35.9 % (42-52); Hemoglobin 11.1 g/dL (14.0-18.0); Immature Granulocytes # (auto) 0.02 K/uL (0.00-0.02); Immature Granulocytes % (auto) 0.3 %; Lymphocytes # (auto) 1.74 K/uL (1.2-3.4); Lymphocytes % (auto) 26.7 %; Mean Corpuscular Hemoglobin 26.4 pg (25-34); Mean Corpuscular Hgb Conc 30.9 g/dL (32-36); Mean Corpuscular Volume 85.3 fL (80-100); Monocytes # (auto) 0.52 K/uL (0.11-0.59); Neutrophils # (auto) 4.23 K/uL (1.4-6.5); Platelet Count 85 K/uL (130-400); Platelet Estimate Decreased (Normal); RDW Coefficient of Variation 17.1 % (11.5-14.5); RDW Standard Deviation 53.3 fL (36.4-46.3); Red Blood Count 4.21 M/uL (4.7-6.1); White Blood Count 6.51 K/uL (4.8-10.8)
[2021-12-13 07:47] LABS: Estimated Average Glucose 192 mg/dl; Hemoglobin A1C 8.3 % (4.5-5.6)
[2021-12-13] MEDS: INSULIN ASPART PER UNIT SC SCH ×4 (08:39→21:14)
[2021-12-13] MEDS: ASPIRIN 81 MG ECTAB PO SCH (08:56)
[2021-12-13] MEDS: ADVANCED PROBIOTIC 1250 MG CAPSULE PO SCH (08:57)
[2021-12-13] MEDS: ROSUVASTATIN CALCIUM 20 MG TAB PO SCH (08:58)
[2021-12-13] MEDS: FENOFIBRATE NANOCRYSTALLIZED 48 MG TABLET PO SCH (08:58)
[2021-12-13] MEDS: FERROUS GLUCONATE 324 MG TAB PO SCH (08:58)
[2021-12-13] MEDS: APIXABAN 5 MG TABLET PO SCH (08:58)
[2021-12-13] MEDS: METOPROLOL SUCC 50MG EXT REL TAB PO SCH (08:58)
[2021-12-13] MEDS: SERTRALINE HCL 100 MG TABLET PO SCH (08:58)
[2021-12-13] MEDS: ACYCLOVIR 400 MG TAB PO SCH ×2 (08:59→21:11)
[2021-12-13] MEDS: INSULIN GLARGINE SOLOSTAR 100 UNITS/ML 3 ML PEN SQ SCH (09:07)
[2021-12-13] MEDS: FILGRASTIM 300 MCG/ML VIAL SQ SCH (09:28)
[2021-12-13] MEDS: SODIUM CHLORIDE 0.9% 1000ML 1,000 ML IV SCH (10:11)
--- NOTE | 2021-12-13 17:27 | Hospitalist Progress Note ---
Date of Service December 13, 2021 Assessment & Plan (1) Sepsis: Plan: Secondary to COVID-19 pneumonia, bilateral bases Neutropenia Remains on room air, 94% LFTs stable crea increased to 2.0 HOLD Remdesivir repeat crea in AM Incentive spirometry on Eliquis Neutropenia Multiple myeloma on Velcade Started on Neupogen ANC improved to 1500 d/c Neupogen Diarrhea Likely from COVID 19 infection C. difficile negative Check stool PCR: negative likely from Covid 19 infection Imodium and Bentyl resolving hx CAD PAF/history PE DVT status post IVC filter placement on Eliquis --no Cardiac symptoms Continue Eliquis hypertension, stable hyperlipidemia, on statin Rx DM2 insulin requiring, optimal control as of recent hemoglobin A1c of 8.23 August 2021 --Insulin sliding scale multiple myeloma status post H SCT ongoing chemotherapy on acyclovir suppression Rx AMAURY (CPAP noncompliance) renal oncocytoma status post R nephrectomy -- monitor crea closely chronic pancytopenia secondary to chemotherapy mood disorder, at baseline Left renal mass on CT -- Will need further imaging Will discuss with patient DVT prophylaxis. Eliquis Full code plan of care discussed with patient in detail and at length all questions answered he is understanding, agreeable, comfortable with the plan of care Admission and Anticipated Discharge Date Admission Date: December 10, 2021 Subjective ff up for covid 19 infection, etc seen resting in bed, comfortable states he feels better today diarrhea, nausea resolved appetite is good less cough, breathing is better no other symptoms Review of Systems Review of Systems: all noted and negative except for above Physical Exam Physical Exam: General- oriented x 3, not in distress, speaks in sentences with no effort or accessory muscle use Eyes- anicteric Neck- no JVD Lungs- clear breath sounds bilaterally no crackles or wheezing Heart- normal rate, regular rhythm; no murmurs Abdomen- normal bowel sounds, nondistended, soft, nontender Extremities- no pretibial edema, no calf tenderness Neuro- alert, oriented x 3; no gross focal neurologic deficits Skin- warm & dry Results & Data Results & Data ([facility]) Vital Signs (Past 12 Hours) Vital Signs Temp Pulse Resp BP Pulse Ox 12/13/21 17:16 36.8 C 85 16 136/84 96 12/13/21 08:23 36.6 C 82 15 129/82 95 all noted and reviewed including below
[2021-12-13] MEDS ORDERED: XOPENEX/ATROVENT 1.25mg/0.5MG NEB COMBO NEB STA (19:38)
--- NOTE | 2021-12-13 19:38 | Communication Note ---
Date of Service: December 13, 2021 Patient complaining of shortness of breath as per RN. Noted to have coarse breath sounds, O2 sats 92 on 2 L as per RN. AP Hypoxemic respiratory failure secondary to severe COVID-19 pneumonia Supplemental O2 Baseline ABG Stat nebs Decadron Hold off on remdesivir given kidney dysfunction Will relay to AM provider.
[2021-12-13] MEDS ORDERED: LEVALBUTEROL 1.25MG/0.5ML NEB INH STA (19:44)
[2021-12-13] MEDS ORDERED: IPRATROPIUM BROMIDE NEB SOLN 0.02% 2.5 ML VIAL INH STA (19:44)
[2021-12-13 20:25] LABS: Base Excess ABG -9.1 mEq/L (-9-1.8); HCO3 ABG 15 mmol/L (19-24); Oxygen Saturation ABG 94.8 % (90-95); PCO2 ABG 26 mmHg (35-46); PO2 ABG 85 mmHg (80-95); pH ABG 7.36 (7.35-7.45)
[2021-12-13 20:26] LABS: Allen Test Pos (Pos)
--- NOTE | 2021-12-13 20:29 | XRay Report ---
SINGLE VIEW CHEST CLINICAL HISTORY: Dyspnea. FINDINGS: An AP, portable, upright chest radiograph is compared to study dated 12/10/2021. Correlation is made with abdominal CT dated 12/10/2021. The examination is degraded by portable technique and api gia lordotic positioning. The heart is top normal for projection noting atherosclerotic calcification of the thoracic aorta. The pulmonary vasculature is noncongested. Mild elevation of the right hemidi aphragm is similar to previous. Mild bibasilar airspace opacities persist. No large pleural effusion or pneumothorax is seen. The skeletal structures are osteopenic. The bony thorax is grossly intact. IMPRESSION: Mild bibasilar airspace opacities persist and likely represent an infectious/inflammatory pneumonitis. Clinical correlation will be required and radiographic follow-up to resolution is recom mended. ACT 112: Negative or not required by law. Electronically signed by: Kirk Lopez M.D. 12/13/2021 8:28 PM
[2021-12-13 20:30] LABS: Hematocrit (blood only) 32.1 % (42-52)
[2021-12-13] MEDS ORDERED: dexAMETHasone 6 MG in SYRINGE 0 ML IV ONE (21:00)
[2021-12-13] MEDS: PANTOprazole 40 MG TAB PO SCH (21:11)
[2021-12-13] MEDS: LACTATED RINGER'S 1,000 ML IV SCH (21:11)
[2021-12-13] MEDS: traZODone HCL 100 MG TAB PO SCH (21:11)
[2021-12-14 06:12] LABS: Mean Corpuscular Hgb Conc 31.1 g/dL (32-36)
[2021-12-14 06:21] LABS: Hematocrit (blood only) 30.9 % (42-52); Hemoglobin 9.6 g/dL (14.0-18.0); Mean Corpuscular Hemoglobin 26.4 pg (25-34); Mean Corpuscular Volume 85.1 fL (80-100); RDW Coefficient of Variation 17.1 % (11.5-14.5); RDW Standard Deviation 53.8 fL (36.4-46.3); Red Blood Count 3.63 M/uL (4.7-6.1)
[2021-12-14 06:31] LABS: Albumin Globulin Ratio 1.3 (0.9-2); Albumin Level 3.5 gm/dl (3.4-5.0); BUN Creatinine Ratio 17.9 (10-20); Bilirubin,Total 0.3 mg/dl (0.2-1.0); Calcium 7.5 mg/dl (8.5-10.1); Creatinine Clr Calc Pharmacy 46.9 ml/min; Est GFR (African American) 41.8 ml/min; Est GFR (Non-African American) 36.1 ml/min; Globulin 2.6 gm/dl (2.5-4.0); Potassium 3.8 mmol/L (3.5-5.1); Total Protein 6.1 gm/dl (6.0-8.3)
[2021-12-14] MEDS: SODIUM CHLORIDE 0.9% 1000ML 1,000 ML IV SCH (06:42)
[2021-12-14 06:55] LABS: Platelet Count 73 K/uL (130-400)
[2021-12-14 06:56] LABS: Lymphocytes % (auto) 28.6 %; Monocytes # (auto) 0.16 K/uL (0.11-0.59); Monocytes % (auto) 7.6 %; Neutrophils # (auto) 1.34 K/uL (1.4-6.5); Neutrophils % (auto) 63.8 %; Platelet Estimate SN (Normal); RBC Morphology Unremarkable
[2021-12-14] MEDS: LACTATED RINGER'S 1,000 ML IV SCH ×2 (06:56→17:25)
[2021-12-14] MEDS: dexAMETHasone 6 MG in SYRINGE 0 ML IV SCH (08:11)
[2021-12-14] MEDS: ADVANCED PROBIOTIC 1250 MG CAPSULE PO SCH (08:12)
[2021-12-14] MEDS: ROSUVASTATIN CALCIUM 20 MG TAB PO SCH (08:13)
[2021-12-14] MEDS: SERTRALINE HCL 100 MG TABLET PO SCH (08:27)
[2021-12-14] MEDS: FENOFIBRATE NANOCRYSTALLIZED 48 MG TABLET PO SCH (08:27)
[2021-12-14] MEDS: ACYCLOVIR 400 MG TAB PO SCH ×2 (08:28→21:53)
[2021-12-14] MEDS: FERROUS GLUCONATE 324 MG TAB PO SCH (08:28)
[2021-12-14] MEDS: METOPROLOL SUCC 50MG EXT REL TAB PO SCH (08:28)
[2021-12-14] MEDS: INSULIN GLARGINE SOLOSTAR 100 UNITS/ML 3 ML PEN SQ SCH (09:48)
[2021-12-14] MEDS: INSULIN ASPART PER UNIT SC SCH ×3 (09:48→18:15)
[2021-12-14] MEDS: PROMETHAZINE HCL 12.5 MG in SODIUM CHLORIDE 0.9% 50 ML IV PRN (10:23)
[2021-12-14] MEDS: ACETAMINOPHEN 325 MG TAB PO PRN (10:24)
--- NOTE | 2021-12-14 16:33 | XRay Report ---
XR KUB/Abdomen 1 view CLINICAL HISTORY: vomiting, r/o obstruction TECHNIQUE: 1 view of the abdomen was obtained. Comparison: Comparison is made to CT abdomen pelvis 12/10/2021 FINDINGS: Lung bases are unremarkable. Degenerative changes are seen in the visualized skeleton. Global gas dil ated loops of small bowel are seen measuring up to 6.8 cm in diameter. No significant stool burden is seen. IMPRESSION: Numerous dilated loops of small bowel are seen, increased from prior CT abdomen pelvis. Findings are concerning for developing small bowel obstruction. Recommend follow-up by CT abdomen pelvis. ACT 112: Negative or not required by law. Electronically signed by: Parker Tripathi M.D. 12/14/2021 4:31 PM
[2021-12-14] MEDS: ondansetron HCL 6 MG in DEXTROSE 5% 50 ML IV PRN (18:20)
--- NOTE | 2021-12-14 18:21 | CT Scan Report ---
CT SCAN OF THE ABDOMEN AND PELVIS WITHOUT IV CONTRAST CLINICAL HISTORY: Generalized abdominal pain. Nausea and vomiting. COMPARISON STUDY: Abdominal CT dated 12/10/2021. TECHNIQUE: CT scan of the abdomen and pelvis is performed from the lung bases to the proximal femora. Images are reviewed in the axial, sagittal, and coronal planes. IV contrast was not administered for this examination. Note that the examination was performed in suboptimal fashion without oral and IV contrast. A dose lowering technique was utilized adhering to the principles of ALARA. CT DOSE: 1423.75 mGy.cm FINDINGS: Lung bases: The heart is normal in size and without pericardial effusion. The coronary arteries are d ensely calcified. Patchy groundglass consolidation is again seen at both lung bases. There are scatte red calcified granulomas. No pleural effusion is seen. Liver: The unenhanced liver is enlarged, measuring 19.9 cm in length. The liver demonstrates diffusel y diminished attenuation indicating steatosis. There is no intrahepatic biliary ductal dilatation. Gallbladder: Surgically absent noting clips in the gallbladder fossa. Spleen: Normal in size and attenuation. Pancreas: The unenhanced pancreas is moderately atrophic and grossly unremarkable. Adrenal glands: Unremarkable. Kidneys: The right kidney is surgically absent. The unenhanced left kidney is normal in size and with out hydronephrosis. There are no left renal calculi identified. An indeterminant 13 mm hypodensity is again seen arising from the lower pole of left kidney. Abdominal vasculature: The abdominal aorta is normal in course and caliber noting advanced atheroscle rotic calcification. Bowel: There is postoperative change from right hemicolectomy with ileocolic anastomosis. The appendi x is surgically absent. There is laxity of the ventral abdominal wall with diastases of the rectus m usculature. There is a small bowel containing hernia in the right ventral abdomen seen on image #256 and a small bowel containing hernia in the lateral right lower quadrant abdominal wall seen on image #289. There is diffuse gaseous distention of the small bowel and the right colon. Proximal small theresa l loops measure up to 5.8 cm diameter. The loop of small bowel exiting the lateral right lower quadra nt hernia appears decompressed (axial image #333); however, the more distal small bowel loops are dis tended. There is no pneumatosis intestinalis or portal venous gas. No thick walled small bowel loops are identified. The left colon is relatively decompressed with no significant transition point identi fied. Peritoneum: There is no intraperitoneal free air or abdominal ascites. Lymphadenopathy: None. Pelvic viscera: The prostate gland is diminutive and heterogeneous. The bladder is normal as visualiz ed. There are bilateral fat-containing inguinal hernias. Skeletal structures: The skeletal structures are heterogeneously osteopenic. There is moderate lumbos acral spondylosis. No lytic or blastic lesions are seen. Healed left-sided rib fractures are noted. IMPRESSION: 1. There is diffuse gaseous distention of the small bowel and right colon, and the degree of distenti on has increased as compared to 12/10/2021. 2. There is postoperative change from right hemicolectomy with ileocolic anastomosis, and 2 small bow el containing hernias are identified as detailed above. 3. The loop of small bowel exiting the lateral right lower quadrant hernia is decompressed; however, the more distal small bowel is distended. The appearance favors ileus, with a small bowel obstruction considered less likely. Clinical correlation will be required. 4. No intraperitoneal free air is seen. No thick walled bowel loops are identified and there is no pn eumatosis intestinalis or portal venous gas. 5. Patchy groundglass opacities are again seen at both lung bases and favor an infectious/inflammator y pneumonitis. 6. Hepatomegaly and hepatic steatosis. 7. An indeterminant left renal lesion is again unchanged. Nonemergent/outpatient follow-up with a ded icated renal protocol CT or MRI is recommended. 8. Additional findings as above. ACT 112: Negative or not required by law. Electronically signed by: Kirk Lopez M.D. 12/14/2021 6:18 PM
--- NOTE | 2021-12-14 18:53 | Hospitalist Progress Note ---
Date of Service December 14, 2021 Assessment & Plan (1) Sepsis: Plan: Secondary to COVID-19 pneumonia, bilateral bases Neutropenia Patient oxygen saturation 93% last night, Decadron started LFTs stable crea increased to 2.0, now 1.8 HOLD Remdesivir repeat crea in AM Incentive spirometry on Eliquis Neutropenia Multiple myeloma on Velcade Started on Neupogen ANC improved to 1500 d/c Neupogen Diarrhea Likely from COVID 19 infection C. difficile negative Check stool PCR: negative likely from Covid 19 infection Imodium and Bentyl resolving Ileus Patient developed vomiting today CT abdomen pelvis showing ileus N.p.o., IV fluids, GI consult hx CAD PAF/history PE DVT status post IVC filter placement on Eliquis --no Cardiac symptoms Continue Eliquis hypertension, stable hyperlipidemia, on statin Rx DM2 insulin requiring, optimal control as of recent hemoglobin A1c of 8.23 August 2021 --Insulin sliding scale multiple myeloma status post H SCT ongoing chemotherapy on acyclovir suppression Rx AMAURY (CPAP noncompliance) renal oncocytoma status post R nephrectomy -- monitor crea closely chronic pancytopenia secondary to chemotherapy mood disorder, at baseline Left renal mass on CT -- Will need further imaging once creatinine improves, urology consult DVT prophylaxis. Eliquis Full code Disposition Lives at home PT and OT evaluation progress plan of care discussed with patient in detail and at length all questions answered he is understanding, agreeable, comfortable with the plan of care Admission and Anticipated Discharge Date Admission Date: December 10, 2021 Subjective Follow-up for COVID-19 pneumonia, etc. Overnight patient had low oxygen below 93% next Started on Decadron IV Seen resting in bed, comfortable, not in distress Chief complaint today is vomiting x2 episodes after eating Has intermittent abdominal cramping Pain is not the same as abdominal hernia pain in the past No diarrhea Less cough, no shortness of breath, fevers or chills No leg pain No other symptom Review of Systems Review of Systems: all noted and negative except for above Physical Exam Physical Exam: General- oriented x 3, not in distress, speaks in sentences with no effort or accessory muscle use Eyes- anicteric Neck- no JVD Lungs-mild rales at the bases, no wheezing, good air entry bilaterally Heart- normal rate, regular rhythm; no murmurs Abdomen- normal bowel sounds, nondistended, soft, nontender Extremities- no pretibial edema, no calf tenderness Neuro- alert, oriented x 3; no gross focal neurologic deficits Skin- warm & dry Results & Data Results & Data ([facility]) Vital Signs (Past 12 Hours) Vital Signs Temp Pulse Resp BP Pulse Ox 12/14/21 16:00 36.8 C 75 16 138/72 95 12/14/21 08:03 36.4 C L 97 H 22 142/78 H 93 all noted and reviewed including below
[2021-12-14] MEDS ORDERED: Nursing to Pharmacy Communication SCH (19:15)
[2021-12-14 20:18] LABS: Hematocrit (blood only) 33.6 % (42-52); Hemoglobin 10.4 g/dL (14.0-18.0)
[2021-12-14] MEDS: PANTOprazole 40 MG TAB PO SCH (21:53)
[2021-12-14] MEDS: traZODone HCL 100 MG TAB PO SCH (21:53)
--- NOTE | 2021-12-14 22:44 | Communication Note ---
Date of Service: December 14, 2021 Patient without epistaxis the whole day as per RN. Resume aspirin and Eliquis.
[2021-12-15] MEDS: INSULIN ASPART PER UNIT SC SCH ×5 (00:37→22:03)
[2021-12-15] MEDS: ondansetron HCL 6 MG in DEXTROSE 5% 50 ML IV PRN ×3 (00:40→17:37)
[2021-12-15 08:03] LABS: Albumin Globulin Ratio 1.4 (0.9-2); Albumin Level 3.7 gm/dl (3.4-5.0); BUN Creatinine Ratio 22.2 (10-20); Bilirubin,Total 0.4 mg/dl (0.2-1.0); Calcium 7.7 mg/dl (8.5-10.1); Creatinine Clr Calc Pharmacy 43.6 ml/min; Est GFR (African American) 38.3 ml/min; Globulin 2.6 gm/dl (2.5-4.0); Potassium 3.4 mmol/L (3.5-5.1); Total Protein 6.3 gm/dl (6.0-8.3)
[2021-12-15 08:06] LABS: Hematocrit (blood only) 34.2 % (42-52); Hemoglobin 10.6 g/dL (14.0-18.0); Mean Corpuscular Hemoglobin 26.8 pg (25-34); Mean Corpuscular Volume 86.4 fL (80-100); RDW Coefficient of Variation 16.8 % (11.5-14.5); RDW Standard Deviation 53.9 fL (36.4-46.3); Red Blood Count 3.96 M/uL (4.7-6.1); White Blood Count 2.03 K/uL (4.8-10.8)
[2021-12-15 08:12] LABS: Platelet Count 84 K/uL (130-400)
[2021-12-15 08:15] LABS: Immature Granulocytes # (auto) 0.01 K/uL (0.00-0.02); Immature Granulocytes % (auto) 0.5 %; Lymphocytes # (auto) 0.63 K/uL (1.2-3.4); Monocytes # (auto) 0.45 K/uL (0.11-0.59); Monocytes % (auto) 22.2 %; Neutrophils # (auto) 0.94 K/uL (1.4-6.5); Neutrophils % (auto) 46.3 %; Ovalocytes 1+; Platelet Estimate Decreased (Normal)
[2021-12-15] MEDS ORDERED: POTASSIUM CHLORIDE CRTAB 20 MEQ TABCR PO STA (08:36)
[2021-12-15] MEDS: dexAMETHasone 6 MG in SYRINGE 0 ML IV SCH (08:47)
[2021-12-15] MEDS: ACYCLOVIR 400 MG TAB PO SCH ×2 (08:47→22:44)
[2021-12-15] MEDS: FENOFIBRATE NANOCRYSTALLIZED 48 MG TABLET PO SCH (08:47)
[2021-12-15] MEDS: ROSUVASTATIN CALCIUM 20 MG TAB PO SCH (08:48)
[2021-12-15] MEDS: METOPROLOL SUCC 50MG EXT REL TAB PO SCH (08:48)
[2021-12-15] MEDS: SERTRALINE HCL 100 MG TABLET PO SCH (08:48)
[2021-12-15] MEDS: ADVANCED PROBIOTIC 1250 MG CAPSULE PO SCH (08:48)
[2021-12-15] MEDS: APIXABAN 5 MG TABLET PO SCH ×2 (08:49→22:44)
[2021-12-15] MEDS: FERROUS GLUCONATE 324 MG TAB PO SCH (08:49)
[2021-12-15] MEDS: ASPIRIN 81 MG ECTAB PO SCH (08:50)
[2021-12-15] MEDS: INSULIN GLARGINE SOLOSTAR 100 UNITS/ML 3 ML PEN SQ SCH (08:59)
[2021-12-15] MEDS: PROMETHAZINE HCL 12.5 MG in SODIUM CHLORIDE 0.9% 50 ML IV PRN ×2 (11:56→22:25)
--- NOTE | 2021-12-15 17:55 | Hospitalist Progress Note ---
Date of Service December 15, 2021 Assessment & Plan (1) Sepsis: Plan: COVID 19 Pneumonia Secondary to COVID-19 pneumonia, bilateral bases Testing positive for COVID 19 CXR showed Mild bibasilar airspace opacities persist and likely represent an infectious/inflammatory pneumonitis. Pt saturated well on RA He was started on remdesivir. Received 2 days then discontinued due to worsening creatinine Will not resume since pt is saturated well on RA Continue dexamethasone for now Continue incentive spirometry Continue monitor closely Neutropenia Multiple myeloma on Velcade was started on Neupogen then discontinue after ANC improved Continue monitor CBC Diarrhea Likely from COVID 19 infection C. difficile negative Check stool PCR: negative Continue Imodium and Bentyl resolving Ileus CT abdomen pelvis showing ileus Vomited improved Will start on clear liquid diet and advanced as tolerated Continue monitor electrolytes hx CAD PAF/history PE DVT status post IVC filter placement on Eliquis no Cardiac symptoms Continue Eliquis hypertension, stable hyperlipidemia, on statin Rx DM2 insulin requiring, optimal control as of recent hemoglobin A1c of 8.23 August 2021 --Insulin sliding scale multiple myeloma status post H SCT ongoing chemotherapy on acyclovir suppression Rx AMAURY (CPAP noncompliance) renal oncocytoma status post R nephrectomy -- monitor crea closely chronic pancytopenia secondary to chemotherapy mood disorder, at baseline Left renal mass on CT -- Will need further imaging once creatinine improves, urology consult DVT prophylaxis. Eliquis Full code Disposition Lives at home PT and OT evaluation progress plan of care discussed with patient in detail and at length all questions answered Admission and Anticipated Discharge Date Admission Date: December 10, 2021 Subjective Pt was seen and examined for Follow-up for COVID-19 pneumonia and nausea Lying in bed with no acute distress Pt said that he had one episode of vomiting early this morning He said that he feels much better today He is saturated well on RA Denies any chest pain, palpitation, dizziness and SOB Review of Systems Review of Systems: All systems reviewed & are unremarkable except as noted in Subjective Physical Exam Physical Exam: General- No acute distress Head- atraumatic Eyes- PERRL, EOMI, ENT- oropharynx clear Neck- supple, no JVD Lungs- clear to auscultation Heart- regular rhythm; no murmur Abdomen- normal bowel sounds, soft, nontender Extremities- no calf tenderness Neuro- alert, oriented x 3; PERRL, EOMI; no facial palsy; no dysarthria Skin- warm & dry Results & Data Results & Data ([facility]) Vital Signs (Past 12 Hours) Vital Signs Temp Pulse Resp BP Pulse Ox 12/15/21 15:35 36.5 C 82 16 136/82 95 12/15/21 11:05 95 12/15/21 07:57 36.6 C 83 20 116/77 93
[2021-12-15] MEDS ORDERED: Nursing to Pharmacy Communication SCH (18:00)
[2021-12-15] MEDS: PANTOprazole 40 MG TAB PO SCH (22:44)
[2021-12-15] MEDS: traZODone HCL 100 MG TAB PO SCH (22:44)
[2021-12-15] MEDS ORDERED: LACTATED RINGER'S 1,000 ML IV ONE (22:54)
[2021-12-16 06:41] LABS: Mean Corpuscular Hgb Conc 31.3 g/dL (32-36); Nucleated RBC # (auto) 0.02 K/uL (0-0); Nucleated RBC % (auto) 1.1 %
[2021-12-16 07:04] LABS: Hematocrit (blood only) 33.2 % (42-52); Hemoglobin 10.4 g/dL (14.0-18.0); Mean Corpuscular Hemoglobin 27.2 pg (25-34); Mean Corpuscular Volume 86.9 fL (80-100); RDW Standard Deviation 54.2 fL (36.4-46.3); Red Blood Count 3.82 M/uL (4.7-6.1); White Blood Count 1.63 K/uL (4.8-10.8)
[2021-12-16 07:08] LABS: Calcium 7.2 mg/dl (8.5-10.1); Creatinine Clr Calc Pharmacy 43.1 ml/min; Est GFR (African American) 37.8 ml/min; Est GFR (Non-African American) 32.6 ml/min; Magnesium 2.1 mg/dl (1.7-2.4); Phosphorus 2.4 mg/dl (2.5-4.9); Potassium 3.7 mmol/L (3.5-5.1)
[2021-12-16 07:59] LABS: Platelet Count 83 K/uL (130-400)
[2021-12-16 08:00] LABS: Basophils # (auto) 0.01 K/uL (0-0.2); Basophils % (auto) 0.6 %; Echinocytes 1+; Immature Granulocytes # (auto) 0.03 K/uL (0.00-0.02); Immature Granulocytes % (auto) 1.8 %; Lymphocytes # (auto) 0.71 K/uL (1.2-3.4); Lymphocytes % (auto) 43.6 %; Monocytes # (auto) 0.38 K/uL (0.11-0.59); Monocytes % (auto) 23.3 %; Neutrophils % (auto) 30.7 %; Ovalocytes 1+; Platelet Estimate Decreased (Normal)
[2021-12-16] MEDS: ondansetron HCL 6 MG in DEXTROSE 5% 50 ML IV PRN ×2 (08:40→22:40)
[2021-12-16] MEDS: dexAMETHasone 6 MG in SYRINGE 0 ML IV SCH (08:40)
[2021-12-16] MEDS: FERROUS GLUCONATE 324 MG TAB PO SCH (08:41)
[2021-12-16] MEDS: ROSUVASTATIN CALCIUM 20 MG TAB PO SCH (08:41)
[2021-12-16] MEDS: APIXABAN 5 MG TABLET PO SCH ×2 (08:41→22:18)
[2021-12-16] MEDS: ACYCLOVIR 400 MG TAB PO SCH ×2 (08:41→22:18)
[2021-12-16] MEDS: METOPROLOL SUCC 50MG EXT REL TAB PO SCH (08:41)
[2021-12-16] MEDS: ADVANCED PROBIOTIC 1250 MG CAPSULE PO SCH (08:41)
[2021-12-16] MEDS: SERTRALINE HCL 100 MG TABLET PO SCH (08:42)
[2021-12-16] MEDS: FENOFIBRATE NANOCRYSTALLIZED 48 MG TABLET PO SCH (08:42)
[2021-12-16] MEDS: ASPIRIN 81 MG ECTAB PO SCH (08:43)
[2021-12-16] MEDS: INSULIN ASPART PER UNIT SC SCH ×4 (09:01→22:06)
[2021-12-16] MEDS: INSULIN GLARGINE SOLOSTAR 100 UNITS/ML 3 ML PEN SQ SCH (09:01)
[2021-12-16] MEDS ORDERED: POTASSIUM PHOS 3 MMOL/1 ML INFUSION IV STA (09:44)
[2021-12-16] MEDS ORDERED: POTASSIUM PHOSPHATE 9 MMOL in DEXTROSE 5% 250 ML IV ONE (10:30)
--- NOTE | 2021-12-16 19:37 | Hospitalist Progress Note ---
Date of Service December 16, 2021 Assessment & Plan (1) Sepsis: Plan: COVID 19 Pneumonia Secondary to COVID-19 pneumonia, bilateral bases Testing positive for COVID 19 CXR showed Mild bibasilar airspace opacities persist and likely represent an infectious/inflammatory pneumonitis. Pt saturated well on RA He was started on remdesivir. Received 2 days then discontinued due to worsening creatinine Remdesivir did not resume since pt is saturated well on RA Currently on dexamethasone, plan to discontinue in am Continue incentive spirometry Continue monitor closely Neutropenia Multiple myeloma on Velcade was started on Neupogen then discontinue after ANC improved Will consider to resume the neupogen if no improvement in ANC Continue monitor CBC Diarrhea Likely from COVID 19 infection C. difficile negative Check stool PCR: negative Continue Imodium and Bentyl resolving Ileus CT abdomen pelvis showing ileus Vomited improved Tolerated clear liquid diet, will advance to soft diet Continue monitor electrolytes hx CAD PAF/history PE DVT status post IVC filter placement on Eliquis no Cardiac symptoms Continue Eliquis hypertension, stable hyperlipidemia, on statin Rx DM2 insulin requiring, optimal control as of recent hemoglobin A1c of 8.23 August 2021 Insulin sliding scale multiple myeloma status post H SCT ongoing chemotherapy on acyclovir suppression Rx AMAURY (CPAP noncompliance) stable Left renal lesion Renal oncocytoma status post R nephrectomy CT showed 13 mm exophytic lesion in the left kidney inferior pole may represent a lobulation or hemorrhagic/proteinaceous cyst, malignancy cannot be entirely excluded. Pt said that he believes the finding in the left kidney is not new ( will try to compare with previous renal imaging ) Will need outpatient follow imaging DVT prophylaxis. Eliquis Full code Disposition Will discharge once medical stable Admission and Anticipated Discharge Date Admission Date: December 10, 2021 Subjective Pt was seen and examined for Follow-up for COVID-19 pneumonia and nausea Lying in bed with no acute distress He said that he feels much better today Pt said that he tolerated diet early and no vomiting so far He is saturated well on RA Denies any chest pain, palpitation, dizziness and SOB Review of Systems Review of Systems: All systems reviewed & are unremarkable except as noted in Subjective Physical Exam Physical Exam: General- No acute distress Head- atraumatic Eyes- PERRL, EOMI, ENT- oropharynx clear Neck- supple, no JVD Lungs- clear to auscultation Heart- regular rhythm; no murmur Abdomen- normal bowel sounds, soft, nontender Extremities- no calf tenderness Neuro- alert, oriented x 3; PERRL, EOMI; no facial palsy; no dysarthria Skin- warm & dry Results & Data Results & Data ([facility]) Vital Signs (Past 12 Hours) Vital Signs Temp Pulse Resp BP Pulse Ox 12/16/21 15:06 36.5 C 88 18 108/71 93 12/16/21 08:16 36.7 C 75 16 113/70 95
[2021-12-16] MEDS: traZODone HCL 100 MG TAB PO SCH (22:18)
[2021-12-16] MEDS: PANTOprazole 40 MG TAB PO SCH (22:18)
[2021-12-17] MEDS: FERROUS GLUCONATE 324 MG TAB PO SCH (08:29)
[2021-12-17] MEDS: ROSUVASTATIN CALCIUM 20 MG TAB PO SCH (08:29)
[2021-12-17] MEDS: METOPROLOL SUCC 50MG EXT REL TAB PO SCH (08:29)
[2021-12-17] MEDS: ADVANCED PROBIOTIC 1250 MG CAPSULE PO SCH (08:29)
[2021-12-17] MEDS: SERTRALINE HCL 100 MG TABLET PO SCH (08:29)
[2021-12-17] MEDS: dexAMETHasone 6 MG in SYRINGE 0 ML IV SCH (08:29)
[2021-12-17] MEDS: ACYCLOVIR 400 MG TAB PO SCH (08:29)
[2021-12-17] MEDS: APIXABAN 5 MG TABLET PO SCH (08:30)
[2021-12-17] MEDS: FENOFIBRATE NANOCRYSTALLIZED 48 MG TABLET PO SCH (08:30)
[2021-12-17] MEDS: INSULIN GLARGINE SOLOSTAR 100 UNITS/ML 3 ML PEN SQ SCH (08:41)
[2021-12-17] MEDS: INSULIN ASPART PER UNIT SC SCH ×3 (08:41→17:41)
[2021-12-17 10:24] LABS: Nucleated RBC # (auto) 0.02 K/uL (0-0); Nucleated RBC % (auto) 0.8 %
[2021-12-17 10:58] LABS: Calcium 7.6 mg/dl (8.5-10.1); Creatinine Clr Calc Pharmacy 47.1 ml/min; Est GFR (African American) 42.1 ml/min; Est GFR (Non-African American) 36.3 ml/min; Potassium 3.5 mmol/L (3.5-5.1)
[2021-12-17 11:16] LABS: Hematocrit (blood only) 32.3 % (42-52); Mean Corpuscular Hemoglobin 26.6 pg (25-34); Mean Corpuscular Volume 85.9 fL (80-100); RDW Coefficient of Variation 16.8 % (11.5-14.5); RDW Standard Deviation 52.9 fL (36.4-46.3); Red Blood Count 3.76 M/uL (4.7-6.1); White Blood Count 2.18 K/uL (4.8-10.8)
[2021-12-17 11:36] LABS: Platelet Count 78 K/uL (130-400); Platelet Estimate Decreased (Normal)
--- NOTE | 2021-12-30 10:31 | Discharge Summary ---
Date of Service December 17, 2021 Admission HPI Per Admitting Provider History obtained from patient and records. 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 Last week, patient noted cough symptoms productive of clear sputum with fever. No chest pain, no shortness of breath. Fatigue symptoms and muscle aches. Possible COVID-19 contacts. Patient completed COVID-19 vaccination. Usual loose stools, achy right lower quadrant pain. Patient consulted [facility] ER. COVID-19 test positive. Admission recommended but patient signed out AGAINST MEDICAL ADVICE. Patient directed to [facility] ER by outpatient providers today for further evaluation. 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 Admission Exam Per Admitting Provider GENERAL: Comfortable, morbidly obese, no respiratory distress SKIN: Pallor, warm HEENT: Pale palpebral conjunctivae, no ptosis, dry buccal mucosa NECK : Supple, short neck, no tenderness CHEST : Decreased breath sounds, no tenderness HEART : RRR, no obvious murmurs ABDOMEN: Some distention, nontender EXTREMITIES : Bilateral LE swelling, no LE tenderness, no other conspicuous deformities noted NEUROLOGIC : Coherent, no facial asymmetry, no other gross focality Principal Diagnosis Sepsis: COVID 19 Pneumonia Neutropenia Multiple myeloma Diarrhea Ileus hx CAD Paroxysmal afib History pulmonary embolism and DVT status post IVC filter placement Hypertension Hyperlipidemia diabetes Obstructive sleep apnea Left renal lesion Renal oncocytoma status post R nephrectomy Discharge Exam General- No acute distress Head- atraumatic Eyes- PERRL, EOMI, ENT- oropharynx clear Neck- supple, no JVD Lungs- clear to auscultation Heart- regular rhythm; no murmur Abdomen- normal bowel sounds, soft, nontender Extremities- no calf tenderness Neuro- alert, oriented x 3; PERRL, EOMI; no facial palsy; no dysarthria Skin- warm & dry Discharge Data Allergies Allergy/AdvReac Type Severity Reaction Status Date / Time doxycycline Allergy Diarrhea Verified 12/11/21 00:42 latex Allergy Rash Verified 12/11/21 00:42 Consultations 12/10/21 20:28 ED Decision to Admit Stat Ordered Studies 12/10/21 22:09 CT abd pelvis IV con only Stat 12/14/21 16:43 CT abd pelvis wo con Urgent CT SCAN OF THE ABDOMEN AND PELVIS WITHOUT IV CONTRAST CLINICAL HISTORY: Generalized abdominal pain. Nausea and vomiting. COMPARISON STUDY: Abdominal CT dated 12/10/2021. TECHNIQUE: CT scan of the abdomen and pelvis is performed from the lung bases to the proximal femora. Images are reviewed in the axial, sagittal, and coronal planes. IV contrast was not administered for this examination. Note that the examination was performed in suboptimal fashion without oral and IV contrast. A dose lowering technique was utilized adhering to the principles of ALARA. CT DOSE: 1423.75 mGy.cm FINDINGS: Lung bases: The heart is normal in size and without pericardial effusion. The coronary arteries are densely calcified. Patchy groundglass consolidation is again seen at both lung bases. There are scattered calcified granulomas. No pleural effusion is seen. Liver: The unenhanced liver is enlarged, measuring 19.9 cm in length. The liver demonstrates diffusely diminished attenuation indicating steatosis. There is no intrahepatic biliary ductal dilatation. Gallbladder: Surgically absent noting clips in the gallbladder fossa. Spleen: Normal in size and attenuation. Pancreas: The unenhanced pancreas is moderately atrophic and grossly unremarkable. Adrenal glands: Unremarkable. Kidneys: The right kidney is surgically absent. The unenhanced left kidney is normal in size and without hydronephrosis. There are no left renal calculi i dentified. An indeterminant 13 mm hypodensity is again seen arising from the lower pole of left kidney. Abdominal vasculature: The abdominal aorta is normal in course and caliber noting advanced atherosclerotic calcification. Bowel: There is postoperative change from right hemicolectomy with ileocolic anastomosis. The appendix is surgically absent. There is laxity of the ventral abdominal wall with diastases of the rectus musculature. There is a small bowel containing hernia in the right ventral abdomen seen on image #256 and a small bowel containing hernia in the lateral right lower quadrant abdominal wall seen on image #289. There is diffuse gaseous distention of the small bowel and the right colon. Proximal small bowel loops measure up to 5.8 cm diameter. The loop of small bowel exiting the lateral right lower quadrant hernia appears decompressed (axial image #333); however, the more distal small bowel loops are distended. There is no pneumatosis intestinalis or portal venous gas. No thick walled small bowel loops are identified. The left colon is relatively decompressed with no significant transition point identified. Peritoneum: There is no intraperitoneal free air or abdominal ascites. Lymphadenopathy: None. Pelvic viscera: The prostate gland is diminutive and heterogeneous. The bladder is normal as visualized. There are bilateral fat-containing inguinal hernias. Skeletal structures: The skeletal structures are heterogeneously osteopenic. There is moderate lumbosacral spondylosis. No lytic or blastic lesions are seen. Healed left-sided rib fractures are noted. IMPRESSION: 1. There is diffuse gaseous distention of the small bowel and right colon, and the degree of distention has increased as compared to 12/10/2021. 2. There is postoperative change from right hemicolectomy with ileocolic anastomosis, and 2 small bowel containing hernias are identified as detailed above. 3. The loop of small bowel exiting the lateral right lower quadrant hernia is decompressed; however, the more distal small bowel is distended. The appearance favors ileus, with a small bowel obstruction considered less likely. Clinical correlation will be required. 4. No intraperitoneal free air is seen. No thick walled bowel loops are identified and there is no pneumatosis intestinalis or portal venous gas. 5. Patchy groundglass opacities are again seen at both lung bases and favor an infectious/inflammatory pneumonitis. 6. Hepatomegaly and hepatic steatosis. 7. An indeterminant left renal lesion is again unchanged. Nonemergent/outpatient follow-up with a dedicated renal protocol CT or MRI is recommended. 8. Additional findings as above. ACT 112: Negative or not required by law. Electronically signed by: Kirk Lopez M.D. 12/14/2021 6:18 PM Dictated:12/14/211803 Transcribed: 12/14/211803 XR KUB/Abdomen 1 view CLINICAL HISTORY: vomiting, r/o obstruction TECHNIQUE: 1 view of the abdomen was obtained. Comparison: Comparison is made to CT abdomen pelvis 12/10/2021 FINDINGS: Lung bases are unremarkable. Degenerative changes are seen in the visualized skeleton. Global gas dilated loops of small bowel are seen measuring up to 6.8 cm in diameter. No significant stool burden is seen. IMPRESSION: Numerous dilated loops of small bowel are seen, increased from prior CT abdomen pelvis. Findings are concerning for developing small bowel obstruction. Recommend follow-up by CT abdomen pelvis. ACT 112: Negative or not required by law. Electronically signed by: Parker Tripathi M.D. 12/14/2021 4:31 PM Dictated:12/14/211626 Transcribed: 12/14/211626 SINGLE VIEW CHEST CLINICAL HISTORY: Dyspnea. FINDINGS: An AP, portable, upright chest radiograph is compared to study dated 12/10/2021. Correlation is made with abdominal CT dated 12/10/2021. The examination is degraded by portable technique and apical lordotic positioning. The heart is top normal for projection noting atherosclerotic calcification of the thoracic aorta. The pulmonary vasculature is noncongested. Mild elevation of the right hemidiaphragm is similar to previous. Mild bibasilar airspace opacities persist. No large pleural effusion or pneumothorax is seen. The skeletal structures are osteopenic. The bony thorax is grossly intact. IMPRESSION: Mild bibasilar airspace opacities persist and likely represent an infectious/inflammatory pneumonitis. Clinical correlation will be required and radiographic follow-up to resolution is recommended. ACT 112: Negative or not required by law. Electronically signed by: Kirk Lopez M.D. 12/13/2021 8:28 PM Dictated:12/13/212025 Transcribed: 12/13/212025 CT abd pelvis IV con only CLINICAL HISTORY: RLQ pain TECHNIQUE: Helical axial images of the abdomen and pelvis were obtained and displayed. Automated dose lowering techniques and/or adjustment according to patient size were utilized for this exam. This exam was performed with intravenous contrast. CT DOSE: 1518.89 mGy.cm COMPARISON: None available at the time of this dictation. FINDINGS: Lower chest: Bibasilar opacities are seen in the bilateral lung bases. Liver: Unremarkable. No focal lesions are seen. Gallbladder and biliary tree: Patient is status post cholecystectomy. No intra- or extrahepatic biliary ductal dilation. Pancreas: Unremarkable, no focal lesions. Spleen: Unremarkable. Adrenals: Unremarkable. Kidneys and ureters: A 13 mm exophytic lesion is seen in the left kidney inferior pole. Patient is status post right nephrectomy. Bladder: Unremarkable. Reproductive organs: Unremarkable. Bowel: Postsurgical changes are seen in the cecum. Multiple loops of bowel are herniated through the right mid abdomen abdominal wall. Lymph nodes Retroperitoneal: Unremarkable. Mesenteric: Unremarkable. Pelvic: Unremarkable. Peritoneum: Normal. Vessels: Atherosclerotic calcifications are seen. Abdominal wall: Bilateral fat-containing inguinal hernias are seen. A right mid abdomen hernia with a 7 cm neck is seen containing multiple loops of bowel. Midline fat-containing hernia is in the upper abdomen. Bones: Degenerative changes in the visualized spine. IMPRESSION: 1. Groundglass nodules in the bilateral lower lungs likely reflect infectio us/inflammatory process. 2. 7 cm defect in the right abdominal wall with herniation of a loop of bowel. 3. Postsurgical changes in the cecum. 4. 13 mm exophytic lesion in the left kidney inferior pole may represent a lobulation or hemorrhagic/proteinaceous cyst, malignancy cannot be entirely excluded. If not previously evaluated, ultrasound and/or nonemergent CT or MR renal mass protocol can be performed. ACT 112: Negative or not required by law. Electronically signed by: Parker Tripathi M.D. 12/10/2021 10:52 PM Dictated:12/10/212243 Transcribed: 12/10/212243 XR chest 1V portable CLINICAL HISTORY: SEPSIS TECHNIQUE: Single frontal radiograph of the chest was obtained. Comparison: None available at the time of this dictation. FINDINGS: No lines and tubes are seen. The cardiomediastinal silhouette is normal. The lungs are clear. No evidence of pleural effusion or pneumothorax. IMPRESSION: No acute abnormalities and in particular no evidence of pneumonia. ACT 112: Negative or not required by law. Electronically signed by: Parker Tripathi M.D. 12/10/2021 6:04 PM Dictated:12/10/211803 Transcribed: 12/10/211803 Hospital Course (1) COVID-19: Sepsis COVID 19 Pneumonia Secondary to COVID-19 pneumonia, bilateral bases Testing positive for COVID 19 CXR showedMild bibasilar airspace opacities persist and likely represent an infectious/inflammatory pneumonitis. Pt saturated well on RA He was started on remdesivir. Received 2 days then discontinued due to worsening creatinine Remdesivir did not resume since pt is saturated well on RA Currently on dexamethasone, plan to discontinue in am Continue incentive spirometry Continue monitor closely Neutropenia Multiple myeloma on Velcade was started on Neupogen then discontinue after ANC improved Will consider to resume the neupogen if no improvement in ANC Continue monitor CBC Diarrhea Likely from COVID 19 infection C. difficile negative Check stool PCR: negative Continue Imodium and Bentyl resolving Ileus CT abdomen pelvis showing ileus Vomited improved Tolerated clear liquid diet, will advance to soft diet Continue monitor electrolytes hx CAD PAF/history PE DVT status post IVC filter placement on Eliquis no Cardiac symptoms Continue Eliquis hypertension, stable hyperlipidemia, on statin Rx DM2 insulin requiring, optimal control as of recent hemoglobin A1c of 8.23 August 2021 Insulin sliding scale multiple myeloma status post H SCT ongoing chemotherapy on acyclovir suppression Rx AMAURY (CPAP noncompliance) stable Left renal lesion Renal oncocytoma status post R nephrectomy CT [id number] mm exophytic lesion in the left kidney inferior pole may represent a lobulation or hemorrhagic/proteinaceous cyst, malignancy cannot be entirely excluded. Pt said that he believes the finding in the left kidney is not new ( will try to compare with previous renal imaging ) Will need outpatient follow imaging DVT prophylaxis. Eliquis Full code Disposition Will discharge once medical stable Total Time Total Time Spent Total Time Spent (In Minutes): 35 minutes Discharge Plan Discharge Items Patient Disposition: Home - Self-Care Reason For Visit: SEPSIS, COVID Discharge Diagnosis: Sepsis: COVID 19 Pneumonia Neutropenia Multiple myeloma Diarrhea Ileus hx CAD Paroxysmal afib History pulmonary embolism and DVT status post IVC filter placement Hypertension Hyperlipidemia diabetes Obstructive sleep apnea Left renal lesion Renal oncocytoma status post R nephrectomy Condition on Discharge: Fair Activity: Resume your previous activity Non-emergency contact: Primary Care Provider and Oncologist Call non-emergency contact if: you have any medication questions and your temperature is above 101 Follow-up/Referrals: Erick Cardona MD [Primary Care Provider] - (Date & Time 12/23/2021 11:00 AM Provider Erick Cardona MD Department [facility] Chirag Williams ) Mick Earl MD [Surgeon] - (Date & Time 12/22/2021 10:45 AM Provider Mick Earl MD Department Hematology/Oncology [facility] ) Diet: Carb Consistent or DM2 Addtl Attending Provider Instructions: Follow up with your primary care provider 12/23/2021 @ 11:00 AM Erick Cardona MD Department [facility] Chirag Williams Follow up with Oncology 12/22/2021 @ 10:45 AM Mick Earl MD Department Hematology/Oncology [facility] Check CBC in 1 week ( Your Oncology Dr. Earl will order it) You will need outpatient follow up for the Left renal lesion Seek medical attention if symptoms worsening or develop any shortness of breath continue to wear mask and practice social distance Home Isolation COVID-19 Instructions The following information about Home Isolation is from the CDC Website: https://www.cdc.gov/coronavirus/2019-ncov/hcp/iuurrybq-hwfrneq-ajfjos.html Stay home except to get medical care People who are mildly ill with COVID-19 are able to isolate at home during their illness. You should restrict activities outside your home, except for getting medical care. Do not go to work, school, or public areas. Avoid using public transportation, ride-sharing, or taxis. Separate yourself from other people and animals in your home People: As much as possible, you should stay in a specific room and away from other people in your home. Also, you should use a separate bathroom, if available. Animals: You should restrict contact with pets and other animals while you are sick with COVID-19, just like you would around other people. Although there have not been reports of pets or other animals becoming sick with COVID-19, it is still recommended that people sick with COVID-19 limit contact with animals until more information is known about the virus. When possible, have another member of your household care for your animals while you are sick. If you are sick with COVID-19, avoid contact with your pet, including petting, snuggling, being kissed or licked, and sharing food. If you must care for your pet or be around animals while you are sick, wash your hands before and after you interact with pets and wear a face mask. Call ahead before visiting your doctor If you have a medical appointment, call the healthcare provider and tell them that you have or may have COVID-19. This will help the healthcare providers of [facility] take steps to keep other people from getting infected or exposed. Wear a face mask You should wear a face mask when you are around other people (e.g., sharing a room or vehicle) or pets and before you enter a healthcare providers office. If you are not able to wear a face mask (for example, because it causes trouble breathing), then people who live with you should not stay in the same room with you, or they should wear a face mask if they enter your room. Cover your coughs and sneezes Cover your mouth and nose with a tissue when you cough or sneeze. Throw used tissues in a lined trash can. Immediately wash your hands with soap and water for at least 20 seconds or, if soap and water are not available, clean your hands with an alcohol-based hand medical accounting clerk that contains at least 60% alcohol. Clean your hands often Wash your hands often with soap and water for at least 20 seconds, especially after blowing your nose, coughing, or sneezing; going to the bathroom; and before eating or preparing food. If soap and water are not readily available, use an alcohol-based hand medical accounting clerk with at least 60% alcohol, covering all surfaces of your hands and rubbing them together until they feel dry. Soap and water are the best option if hands are visibly dirty. Avoid touching your eyes, nose, and mouth with unwashed hands. Avoid sharing personal household items You should not share dishes, drinking glasses, cups, eating utensils, towels, or bedding with other people or pets in your home. After using these items, they should be washed thoroughly with soap and water. Clean all high-touch surfaces everyday High touch surfaces include counters, tabletops, doorknobs, bathroom fixtures, toilets, phones, keyboards, tablets, and bedside tables. Also, clean any surfaces that may have blood, stool, or body fluids on them. Use a household cleaning spray or wipe, according to the label instructions. Labels contain instructions for safe and effective use of the cleaning product including precautions you should take when applying the product, such as wearing gloves and making sure you have good ventilation during use of the product. Monitor your symptoms Seek prompt medical attention if your illness is worsening (e.g., difficulty breathing).Beforeseeking care, call your healthcare provider and tell them that you have, or are being evaluated for, COVID-19. Put on a face mask before you enter the facility. These steps will help the healthcare providers office to keep other people in the office or waiting room from getting infected or exposed. Ask your healthcare provider to call the local or state health department. Persons who are placed under active monitoring or facilitated self- monitoring should follow instructions provided by their local health department or occupational health professionals, as appropriate. When working with your local health department check their available hours. If you have a medical emergency and need to call 911, notify the dispatch personnel that you have, or are being evaluated for COVID-19. If possible, put on a face mask before emergency medical services arrive. Discontinuing home isolation Patients with confirmed COVID-19 should remain under home isolation precautions until the risk of secondary transmission to others is thought to be low. The decision to discontinue home isolation precautions should be made on a case-by-c ase basis, in consultation with healthcare providers and state and local health departments. Coronavirus disease 2019 (COVID-19) is a virus that causes a respiratory illness. It is caused by a coronavirus called 2019 novel coronavirus (2019- nCoV). There are many types of coronavirus. Coronaviruses are a very common cause of bronchitis. They may sometimes cause lung infection(pneumonia). Symptoms can range from mild to severe respiratory illness. These viruses are also foundin some animals. COVID-19 was first found in people in [facility], in late 2019. In 2020, several cases of COVID-19 have been confirmed in the [place] Public health officials are working to find the source. How the virus spreads is not yet fully known. It may be spread through droplets of fluid that a person coughs or sneezes into the air. It may be spread if you touch a surface with virus on it, such as a handle or object, and then touch your mouth. What are the symptoms of COVID-19? Some people have no symptoms or mild symptoms. Symptoms may appear 2 to 14 days after contact with the virus. Symptoms can include: Fever Coughing Trouble breathing What are possible complications from COVID-19? In many cases, this virus can cause infection (pneumonia) in both lungs. In some cases, this can cause . How is COVID-19 diagnosed? Your healthcare provider will ask about your symptoms. He or she will also ask about your recent travel and contact with sick people. Testing for the virus is only done through the CDC. If yourhealthcare provider thinks you may have COVID- 19, he or she will work with your local health department and the CDC on testing. Follow all instructions from your healthcare provider. COVID-19 is diagnosed by: Nasal and throat swab. A cotton-tipped swab is wiped inside your nose or throat. This is done to check for viruses in your nasal mucus. Sputum culture. A small sample of mucus coughed from your lungs (sputum) is collected if you have a cough. It is checked for the virus. How is COVID-19 treated? There is currently no medicine to treat the virus. Treatment is done to help your body while it fights the virus. This is known as supportive care. Supportive care may include: Pain medicine. These include acetaminophen and ibuprofen. They are used to help ease pain and reduce fever. Bed rest. This helps your body fight the illness. For severe illness, you may need to stay in the hospital. Care during severe illness may include: IV (intravenous) fluids.These are given through a vein to help keep your body hydrated. Oxygen. Supplemental oxygen or ventilation with a breathing machine (ventilator) may be given. This is done to keep enough oxygen in your body. Are you at risk for COVID-19? If youve been to a place where people have been sick with this virus, you are at risk for infection. You are at risk if you: Recently traveled to an affected area Had contact with a sick person who recently traveled to this area Had contact with a person who was diagnosed with COVID-19 How can COVID-19 be prevented? There is no vaccine yet. The best prevention is to not have contact with the virus. The CDC advises that people should not travel to areas where there are COVID-19 outbreaks right now for any reason that is not urgent. To help prevent spreading the infection, wash your hands often, or use an alcohol-basedhand medical accounting clerk. If you are in an area with COVID-19: Wash your hands often. Or use an alcohol-based hand medical accounting clerk often. Only touch your eyes, nose, or mouth with clean hands. Dont have contact with people who are sick. Follow local instructions about being in public. For example, you may be told to not use public transport for a period of time. Stay away from markets that have live or animals. Wash your hands after touching any animals. Don't touch animals that may be sick. Dont share eating or drinking tools with sick people. Dont kiss someone who is sick. Clean surfaces often with disinfectant. If you were in an area with COVID-19 in the last 14 days: Call your healthcare provider. He or she can talk with local health staff to see what action may be needed. Follow all instructions from your provider. Take your temperature every morning and evening for at least 14 days. This is to check for fever. Keep a record of the readings. Keep watch for symptoms of the virus. Tell your provider right away if you have symptoms. If you were in an area with COVID-19 and have a fever or other symptoms: Dont panic. Keep in mind that other illnesses can cause similar symptoms. Stay away from work, school, and public places. Limit physical contact with family members. Don't kiss anyone or share eating or drinking utensils. Clean surfaces you touch with disinfectant. This is to help prevent the virus from spreading. Call your healthcare provider. Explain that you have been exposed to COVID-19 and have symptoms. Do this before going to any hospital. Wait for instructions. Keep in mind that healthcare staff may wear protective equipment such as masks, gowns, gloves, and eye protection. You may be put in a separate room. This is to prevent the possible virus from spreading. Tell the healthcare staff about recent travel. This includes local travel on public transport. Staff may need to find other people you have been in contact with. Follow all instructions the healthcare staff give you. If you have been diagnosed with COVID-19 Follow all instructions from your healthcare provider. Dont leave your home, except to get medical care. Call your healthcare providers office before going. They can prepare and give you instructions. This will help prevent the virus from spreading. Dont go to work, school, or public areas. Dont use public transport or taxis. Stay away from other people in your home. Have them wear face masks around you. Dont share household items or food. Wear a face mask if you can. This includes at home or in a medical facility. Cover your face with a tissue when you cough or sneeze. Throw the tissue away. Wash your hands. Wash your hands often. Caregivers should: Follow all instructions from healthcare staff. Wear a face mask and protective clothing as advised. Wash hands often. Keep track of the sick persons symptoms. Clean surfaces, fabrics, and laundry thoroughly. Keep other people away from the sick person. When to call your healthcare provider Call your healthcare provider: If youve recently traveled and have symptoms If you have been diagnosed with COVID-19 and your symptoms are worse To learn more To find out more about COVID-19, visit the CDC website at www.cdc.gov/coron avirus/2019-ncov/index.html. 5191-7635 [employer]. [address] [place] [address]. All rights reserved. This information is not intended as a substitute for professional medical care. Always follow your healthcare professional's instructions. This information has been adapted from [employer] Pending Studies at Discharge: No Stand-Alone Forms: [facility], Smoking Cessation Medications and DC Order Prescriptions: Continued acyclovir 800 mg tablet 800 mg BID duloxetine 60 mg capsule,delayed release(DR/EC) 60 mg PO BID losartan 25 mg tablet See Rx Instructions .ROUTE .COMPLEX Rx Instructions: 2 tabs daily metoprolol succinate 50 mg tablet extended release 24 hr 50 mg PO DAILY Eliquis 5 mg tablet 5 mg BID Trulicity 3 mg/0.5 mL pen injector 3 mg SUBCUT WK fenofibrate nanocrystallized 48 mg tablet 48 mg PO DAILY omeprazole 40 mg capsule,delayed release(DR/EC) 40 mg DAILY rosuvastatin 40 mg tablet 40 mg DAILY trazodone 100 mg tablet 100 mg HS ferrous gluconate 324 mg (38 mg iron) tablet 325 mg DAILY magnesium oxide 400 mg DAILY simethicone See Rx Instructions .ROUTE .COMPLEX Rx Instructions: 1 tablet daily sertraline 200 mg Capsule 200 mg PO DAILY insulin glargine [Lantus Solostar U-100 Insulin] 100 unit/mL (3 mL) Insulin Pen 76 unit SUBCUT DAILY cholecalciferol (vitamin D3) 1 tab DAILY multivitamin 1 tab DAILY Acetaminophen Extra Strength 1 tab Q4 PRN (Reason: Pain) Lactobacillus acidophilus 1 tab DAILY Discharge Orders: Discharge Order (Routine); Ordered 12/17/21 Ordered By: Aleta Calero/Other Patient Handouts: Managing Type 2 Diabetes Admission Data Admit Date/Time: 12/10/21 22:14 Attending Provider: Aleta Duran Admit Provider: Bienvenido Galindo Primary Care Provider: Erick Cardona Other Providers: Shlomo Dumont ; Bienvenido Galindo Other Interventions: Discharge Summary Assessment (RN) Last Done: 12/17/21 16:11
== END 2021-12-17 18:20 | disposition home or self-care (01) | DRG 871 ==
LOC: ED 17:28 → SUATTDRO 22:14 → 3E 22:14

== ENCOUNTER 2022-04-02 11:22 | Inpatient (IN) ==
[2022-04-02] MEDS ORDERED: SODIUM CHLORIDE 0.9% 1000ML 1,000 ML IV ONE (11:36)
--- NOTE | 2022-04-02 11:41 | Emergency Department Note ---
Impression & Plan Pneumonia, Hemoptysis, Fever ED Provider Note NAME: KEIRA REYNOLDS JR AGE: 71 SEX: M : 1950 ARRIVES VIA: Walk-In INFORMANT: Patient ED PROVIDER(S): Henry Mckeon DO CHIEF COMPLAINT: fever HPI: Patient is a 71-year-old male who presents ER for upper respiratory symptoms which started within the past 24 to 48 hours. Patient notes Monday he rolled out of bed. he started having left anterior chest wall pain with breathing and coughing. He admits to runny nose. No sore throat. No belly pain, nausea, vomiting, or diarrhea. He has diffuse myalgias and arthralgias. Does take Eliquis and has not missed any doses for A. fib and previous DVT. Patient notes that since 1 AM this morning he has been coughing up quarter sized clots of blood. He also admits to intermittent headaches since the fall. No weakness or numbness. ROS: See above HPI for pertinent positives & negatives. A total of 10 systems reviewed and were otherwise negative. PAST MEDICAL HISTORY:See Below PAST SURGICAL HISTORY:See Below FAMILY HISTORY:See Below SOCIAL HISTORY:See Below HOME MEDICATIONS:See Below ALLERGIES:See Below VITALS:See Below PHYSICAL EXAMINATION: GENERAL: Sitting up in bed, alert, well appearing, well nourished, no distress, non-toxic EYE EXAM: normal conjunctiva. OROPHARYNX: no exudate, no erythema, lips, buccal mucosa, and tongue normal and mucous membranes are moist NECK: supple, no nuchal rigidity, no adenopathy, non-tender LUNGS: Clear to auscultation. Normal chest wall mechanics HEART: no murmurs, S1 normal and S2 normal ABDOMEN: abdomen soft, non-tender, normo-active bowel sounds, no masses, no rebound or guarding. UPPER EXTREMITIES: upper extremities are grossly normal. LOWER EXTREMITIES: No pitting edema. NEURO EXAM: Normal sensorium, cranial nerves II-XII grossly intact, normal speech, no gross weakness of arms, no gross weakness of legs. MEDICAL DECISION MAKING: Patient is a 71-year-old male who presents the ER for fevers and upper respiratory symptoms. IV was established blood work was obtained. Labs show leukopenia, anemia and thrombocytopenia consistent with his previous history of pancytopenia. BMP with slightly low CO2 at 19. Creatinine slightly up at 1.6 from baseline of 1. Lactate 1.6. LFTs were unremarkable. Bilirubin was normal. Troponin was elevated at 28. Procalcitonin was elevated at 13. CT of the chest showed focal consolidation with chronic PEs. He was given IV Rocephin and azithromycin. He was given IV fluids. He was updated bedside. Discussed with the hospitalist patient was admitted for further work-up of his pneumonia with immunocompromise state. Triage Nursing notes reviewed. Limited review of prior medical records performed Vital Signs: reviewed and remarkable for no significant abnormalities Differential diagnosis: Differential diagnosis includes etiologies such as sepsis, UTI, pneumonia, metabolic, electrolyte abnormalities, cardiac sources, intracerebral event, toxicologic, neurological, as well as others were entertained. ER treatment provided: See below Diagnostics interpreted by me: ECG: Sinus rhythm rate of 93 Normal axis No PVCs QTC 465 Cardiac Monitoring: An order was placed for continuous cardiac monitoring. The monitor shows a rate of 90 with sinus rhythm. Laboratory studies: As stated above and show below. Imaging studies: CT of the head, cervical spine and chest as described above Consultation(s): Discussed with hospitalist for further evaluation Procedures: none Critical Care: None Past Med/Surg History Medical History Multiple myeloma Social History Smoking Status: Never smoker Second Hand Exposure: No; Hx Alcohol Use: No Hx Substance Use: No Preferred Language: Kuwaiti Communication Ability: Effective Battery Container T[employer] Required: No Beliefs That Will Affect Care: None marital status: Single Current Living Situation: Alone Feels Safe at Home: Yes Assistive Devices: None Allergies Allergies Allergy/AdvReac Type Severity Reaction Status Date / Time doxycycline Allergy Diarrhea Verified 12/11/21 00:42 latex Allergy Rash Verified 12/11/21 00:42 Home Meds Home Medications Medication Instructions Recorded Confirmed Acetaminophen Extra Strength 1 tab Q4 PRN Pain 12/11/21 04/02/22 Lactobacillus acidophilus 1 tab DAILY 12/11/21 04/02/22 acyclovir 800 mg tablet 800 mg BID 12/11/21 04/02/22 apixaban 5 mg tablet (Eliquis) 5 mg BID 12/11/21 04/02/22 cholecalciferol (vitamin D3) 2,000 units PO DAILY 12/11/21 04/02/22 dulaglutide 3 mg/0.5 mL 3 mg subcut WK 12/11/21 04/02/22 subcutaneous pen injector (Trulicity) duloxetine 60 mg capsule,delayed 60 mg PO BID 12/11/21 04/02/22 release fenofibrate nanocrystallized 48 mg 48 mg PO DAILY 12/11/21 04/02/22 tablet ferrous gluconate 324 mg (38 mg 325 mg DAILY 12/11/21 04/02/22 iron) tablet insulin glargine 100 unit/mL (3 76 unit subcut DAILY 12/11/21 04/02/22 mL) subcutaneous pen (Lantus Solostar U-100 Insulin) losartan 25 mg tablet 50 mg PO DAILY 12/11/21 04/02/22 magnesium oxide 400 mg DAILY 12/11/21 04/02/22 metoprolol succinate 50 mg 50 mg PO DAILY 12/11/21 04/02/22 tablet,extended release 24 hr multivitamin 1 tab DAILY 12/11/21 04/02/22 omeprazole 40 mg capsule,delayed 40 mg DAILY 12/11/21 04/02/22 release rosuvastatin 40 mg tablet 40 mg DAILY 12/11/21 04/02/22 sertraline 200 mg capsule 200 mg PO DAILY 12/11/21 04/02/22 simethicone 125 mg PO DAILY 12/11/21 04/02/22 trazodone 100 mg tablet 100 mg HS 12/11/21 04/02/22 Results & Data (ED) Vital Signs Vital Signs - 24 hr 04/02/22 11:25 04/02/22 12:41 04/02/22 12:41 Temperature 37.6 C H Temperature Source Temporal Artery Scan Pulse Rate 86 94 H Pulse Rate [Finger] 93 H Pulse Rhythm [Finger] Regular Pulse Strength [Finger] Normal Respiratory Rate 18 20 20 Respiratory Effort / Characteristics Non-Labored Spontaneous Non-Labored Respiratory Depth Normal Normal Respiratory Pattern Regular Blood Pressure 116/64 Blood Pressure [Right Arm] 135/75 Blood Pressure Mean 81 Blood Pressure Mean [Right Arm] 95 Blood Pressure Position Sitting Blood Pressure Position [Right Arm] Lying Pulse Oximetry 97 96 97 Oxygen Delivery Method Room Air Room Air Room Air Sepsis Recent Fever Within 48 Hours Yes Sepsis New/Unexplained Change in Mental Status No Sepsis Action Taken by Nursing No Action Required 04/02/22 14:00 Temperature Temperature Source Pulse Rate Pulse Rate [Finger] 88 Pulse Rhythm [Finger] Regular Pulse Strength [Finger] Normal Respiratory Rate 18 Respiratory Effort / Characteristics Non-Labored Respiratory Depth Normal Respiratory Pattern Regular Blood Pressure Blood Pressure [Right Arm] 127/55 L Blood Pressure Mean Blood Pressure Mean [Right Arm] 79 Blood Pressure Position Blood Pressure Position [Right Arm] Lying Pulse Oximetry 97 Oxygen Delivery Method Room Air Sepsis Recent Fever Within 48 Hours Sepsis New/Unexplained Change in Mental Status Sepsis Action Taken by Nursing Laboratory Data Result diagrams: 04/02/22 10:15 04/02/22 10:15 Lab Results 04/02/22 04/02/22 04/02/22 Range/Units 10:15 10:15 10:15 WBC 3.31 L (4.8-10.8) K/ul RBC 3.54 L (4.63-6.08) M/uL Hgb 10.1 L (14.0-18.0) g/dl Hct 31.6 L (40.1-51.0) % MCV 89.3 (80.0-100.0) fL MCH 28.5 (25.0-34.0) pg MCHC 32.0 (32.0-36.0) g/dL RDW Std Deviation 54.4 H (36.4-46.3) fL RDW Coeff of Zohra 16.4 H (11.5-14.5) % Plt Count 55 L (130-400) K/uL Immature Gran % (Auto) 0.6 % Neut % (Auto) 75.3 % Lymph % (Auto) 17.2 % [facility] % (Auto) 6.0 % Eos % (Auto) 0.0 % Baso % (Auto) 0.9 % Neut # (Auto) 2.49 (1.4-6.5) K/uL Lymph # (Auto) 0.57 L (1.2-3.4) K/uL [facility] # (Auto) 0.20 L (0.24-0.82) K/uL Eos # (Auto) 0.00 (0-0.50) K/uL Baso # (Auto) 0.03 (0-0.2) K/uL Immature Gran # (Auto) 0.02 (0.00-0.02) K/uL Toxic Vacuolation 1+ Sodium 136 (136-145) mmol/L Potassium 3.5 (3.5-5.1) mmol/L Chloride 104 (98-107) mmol/L Carbon Dioxide 19 L (21-32) mmol/L Anion Gap 13 H (3-11) BUN 24 H (6-23) mg/dl Creatinine 1.63 H (0.6-1.4) mg/dl Est Cr Clr Drug Dosing 53.6 ml/min Est GFR ( Amer) 48.4 ml/min Est GFR (Non-Af Amer) 41.8 ml/min BUN/Creatinine Ratio 14.7 (10-20) Glucose 134 H (70-99(Fasting)) mg/dl Lactate (0.4-2.0) mmol/L Calcium 7.8 L (8.5-10.1) mg/dl Magnesium 1.7 (1.7-2.4) mg/dl Total Bilirubin 0.6 (0.2-1.0) mg/dl Direct Bilirubin 0.1 (0-0.2) mg/dl AST 14 (13-39) U/L ALT 20 (7-52) U/L Alkaline Phosphatase 30 L (34-104) U/L Troponin I High Sens 28.4 H (0-20) pg/ml Total Protein 6.5 (6.0-8.3) gm/dl Albumin 3.4 (3.4-5.0) gm/dl Procalcitonin 13.57 H (0-0.5) ng/ml Urine Color Urine Appearance (Clear) Urine pH (4.5-7.5) Ur Specific [place] (1.000-1.030) Urine Protein (Negative) Urine Glucose (UA) (Negative) Urine Ketones (Negative) Urine Blood (Negative) Urine Nitrite (Negative) Urine Bilirubin (Negative) Urine Urobilinogen (Negative) Ur Leukocyte Esterase (Negative) Urine WBC (Auto) (0-5) /hpf Urine RBC (Auto) (0-4) /hpf U Hyaline Cast (Auto) (0-5) /lpf U Epithel Cells (Auto) (0-5) /lpf Urine Bacteria (Auto) (Negative) SARS-CoV-2 (PCR) (Negative) Influenza Type A (PCR) (Neg) Influenza Type B (PCR) (Neg) RSV (RT-PCR) (Neg) 10/15/22 10/15/22 10/15/22 Range/Units 12:15 12:20 12:35 WBC (4.8-10.8) K/ul RBC (4.63-6.08) M/uL Hgb (14.0-18.0) g/dl Hct (40.1-51.0) % MCV (80.0-100.0) fL MCH (25.0-34.0) pg MCHC (32.0-36.0) g/dL RDW Std Deviation (36.4-46.3) fL RDW Coeff of Zohra (11.5-14.5) % Plt Count (130-400) K/uL Immature Gran % (Auto) % Neut % (Auto) % Lymph % (Auto) % [facility] % (Auto) % Eos % (Auto) % Baso % (Auto) % Neut # (Auto) (1.4-6.5) K/uL Lymph # (Auto) (1.2-3.4) K/uL [facility] # (Auto) (0.24-0.82) K/uL Eos # (Auto) (0-0.50) K/uL Baso # (Auto) (0-0.2) K/uL Immature Gran # (Auto) (0.00-0.02) K/uL Toxic Vacuolation Sodium (136-145) mmol/L Potassium (3.5-5.1) mmol/L Chloride (98-107) mmol/L Carbon Dioxide (21-32) mmol/L Anion Gap (3-11) BUN (6-23) mg/dl Creatinine (0.6-1.4) mg/dl Est Cr Clr Drug Dosing ml/min Est GFR ( Amer) ml/min Est GFR (Non-Af Amer) ml/min BUN/Creatinine Ratio (10-20) Glucose (70-99(Fasting)) mg/dl Lactate 1.6 (0.4-2.0) mmol/L Calcium (8.5-10.1) mg/dl Magnesium (1.7-2.4) mg/dl Total Bilirubin (0.2-1.0) mg/dl Direct Bilirubin (0-0.2) mg/dl AST (13-39) U/L ALT (7-52) U/L Alkaline Phosphatase (34-104) U/L Troponin I High Sens (0-20) pg/ml Total Protein (6.0-8.3) gm/dl Albumin (3.4-5.0) gm/dl Procalcitonin (0-0.5) ng/ml Urine Color Yellow Urine Appearance Clear (Clear) Urine pH 7.5 (4.5-7.5) Ur Specific [place] 1.018 (1.000-1.030) Urine Protein 3+ H (Negative) Urine Glucose (UA) Negative (Negative) Urine Ketones Negative (Negative) Urine Blood Negative (Negative) Urine Nitrite Negative (Negative) Urine Bilirubin Negative (Negative) Urine Urobilinogen Negative (Negative) Ur Leukocyte Esterase Negative (Negative) Urine WBC (Auto) 1-5 (0-5) /hpf Urine RBC (Auto) 0-4 (0-4) /hpf U Hyaline Cast (Auto) 0 (0-5) /lpf U Epithel Cells (Auto) 20-30 H (0-5) /lpf Urine Bacteria (Auto) Negative (Negative) SARS-CoV-2 (PCR) NEGATIVE (Negative) Influenza Type A (PCR) Negative (Neg) Influenza Type B (PCR) Negative (Neg) RSV (RT-PCR) Negative (Neg) Administered Medications Azithromycin 500 mg/ Dextrose 255 mls @ 127.5 mls/hr IV NOW STA Stop: 04/02/22 15:42 Last Admin: 04/02/22 14:27 Dose: 127.5 mls/hr Documented By: KYLIE Discontinued Medications Sodium Chloride (Nss 1000ml) 1,000 mls @ 999 mls/hr IV .Q1H1M ONE Stop: 04/02/22 12:36 Last Infusion: 04/02/22 13:33 Dose: 0 mls/hr Documented By: Admin: 04/02/22 12:32 Dose: 999 mls/hr Documented By: KYLIE Ceftriaxone Sodium (Rocephin) 2,000 mg in 70 mls @ 140 mls/hr IV NOW STA Stop: 04/02/22 14:12 Last Infusion: 04/02/22 14:26 Dose: 0 mls/hr Documented By: Admin: 04/02/22 13:59 Dose: 140 mls/hr Documented By: ML Ioversol (Optiray 320 500ml) 116 ml IV ONCE ONE Stop: 04/02/22 13:46 Last Admin: 04/02/22 13:48 Dose: 116 ml Documented By: NEENA Imaging Data Radiologist's Impression: Cervical Spine CT 04/02/22 11:[address] DOSE: 1112.04 mGy.cm HISTORY: fall TECHNIQUE: Multiaxial CT images of the cervical spine were performed and reformatted in the sagittal and coronal plane without the use of contrast. A dose lowering technique was utilized adhering to the principles of ALARA. COMPARISON: None. FINDINGS: No fractures. No subluxation. Prevertebral soft tissues and the C1-C2 interval are intact. No pneumothorax. Mild to moderate disc space narrowing throughout the cervical spine most pronounced at the C3-C4 level which demonstrates mild central canal narrowing. IMPRESSION: No fractures within the cervical spine. ACT 112: Negative or not required by law. Electronically signed by: Ashwin Maxwell M.D. 04/02/2022 12:29 PM Chest X-Ray 04/02/22 11:37 XR chest 1V portable HISTORY: Sepsis COMPARISON: Chest 12/13/2021. FINDINGS: No pneumothorax. No pleural effusions. No evidence for pulmonary edema. The cardiac silhouette remains borderline enlarged. Questionable left basilar density is likely due to overlapping soft tissue. Otherwise, no focal lung consolidations to suggest a pneumonia. IMPRESSION: No acute process. ACT 112: Negative or not required by law. Electronically signed by: Ashwin Maxwell M.D. 04/02/2022 12:[address] 04/02/22 11:[address] DOSE: HISTORY: Headache. Fall. TECHNIQUE: Multiaxial CT images of the head were performed without the use of intravenous contrast. Automated exposure control was utilized for this study. A dose lowering technique was utilized adhering to the principles of ALARA. Comparison: None. Findings: The paranasal sinuses and mastoid air cells are clear. The calvarium and skull base are intact. The ventricles and sulci are within normal limits. There is no mass, hematoma, midline shift, or acute infarct. Impression: No acute intracranial abnormality. ACT 112: Negative or not required by law. Electronically signed by: Ashwin Maxwell M.D. 04/02/2022 12:25 PM Chest CTA 04/02/22 13:08 CHEST CTA for PULMONARY ARTERIES [address] DOSE: 911.26 mGy.cm HISTORY: coughing up blood TECHNIQUE: Multiaxial CT images of the chest were performed following the intravenous administration of contrast to evaluate the pulmonary arteries. Maximal intensity projection images were also obtained. A dose lowering technique was utilized adhering to the principles of ALARA. COMPARISON STUDY: Abdomen and pelvis CT 12/06/2021. FINDINGS: The visualized liver and spleen are unremarkable. Normal esophagus. The thyroid gland enhances normally. The heart is borderline enlarged. No pericardial effusion. Trace left pleural effusion. No mediastinal or hilar lymphadenopathy. Moderate calcified plaque within the coronary arteries. No acute fractures identified. Old, healed sternal fracture and a few old, healed bilateral anterior rib fractures. Dense consolidation with air bronchograms involving the majority of the left lower lobe. This likely represents a pneumonia. There are scattered calcifications also seen within the left lower lobe. No pneumothorax. The central airways are patent. There is a 6 mm nodule w ithin the right lower lobe on image 104. Normal caliber thoracic aorta with no evidence for dissection. There is a weblike filling defect and a calcified filling defects seen within the left lower lobe segmental pulmonary arteries. This is consistent with a chronic pulmonary embolus. The left lower lobe subsegmental pulmonary arteries or not well assessed due to the dense consolidation but are likely patent. The remaining pulmonary arteries show no filling defects to suggest acute pulmonary embolus. IMPRESSION: 1. Nonocclusive weblike filling defects and an intraluminal calcified filling defect within the left lower lobe segmental pulmonary arteries. These likely represent chronic pulmonary emboli. Otherwise, no evidence for an acute pul monary embolus. 2. Dense consolidation within the left lower lobe with associated air br onchograms. This favors a pneumonia. Recommend 2-[address] follow-up to ensure resolution. 3. Trace left pleural effusion. 4. A 6 mm indeterminate pulmonary nodule in the right lower lobe. This could be reassessed on follow-up chest CT. ACT 112: Negative or not required by law. Electronically signed by: Ashwin Maxwell M.D. 04/02/2022 2:03 PM Discharge Plan Visit Data Chief Complaint: Fever Stated Complaint: FEVER, SPITTING BLOOD, WEEKNESS, FALL ED Provider: Henry Mckeon Discharge Problem: Pneumonia, Hemoptysis, Fever Forms Stand Alone Forms: My [facility] Prescriptions Prescriptions: No Action acyclovir 800 mg tablet 800 mg BID duloxetine 60 mg capsule,delayed release(DR/EC) 60 mg PO BID losartan 25 mg tablet 50 mg PO DAILY metoprolol succinate 50 mg tablet extended release 24 hr 50 mg PO DAILY Eliquis 5 mg tablet 5 mg BID Trulicity 3 mg/0.5 mL pen injector 3 mg SUBCUT WK fenofibrate nanocrystallized 48 mg tablet 48 mg PO DAILY omeprazole 40 mg capsule,delayed release(DR/EC) 40 mg DAILY rosuvastatin 40 mg tablet 40 mg DAILY trazodone 100 mg tablet 100 mg HS ferrous gluconate 324 mg (38 mg iron) tablet 325 mg DAILY magnesium oxide 400 mg DAILY simethicone 125 mg PO DAILY sertraline 200 mg Capsule 200 mg PO DAILY insulin glargine [Lantus Solostar U-100 Insulin] 100 unit/mL (3 mL) Insulin Pen 76 unit SUBCUT DAILY cholecalciferol (vitamin D3) 2,000 units PO DAILY multivitamin 1 tab DAILY Acetaminophen Extra Strength 1 tab Q4 PRN (Reason: Pain) Lactobacillus acidophilus 1 tab DAILY Referrals Referrals: Erick Cardona MD [Primary Care Provider] -
--- NOTE | 2022-04-02 12:03 | XRay Report ---
XR chest 1V portable HISTORY: Sepsis COMPARISON: Chest 12/13/2021. FINDINGS: No pneumothorax. No pleural effusions. No evidence for pulmonary edema. The cardiac silhoue tte remains borderline enlarged. Questionable left basilar density is likely due to overlapping soft tissue. Otherwise, no focal lung consolidations to suggest a pneumonia. IMPRESSION: No acute process. ACT 112: Negative or not required by law. Electronically signed by: Ashwin Maxwell M.D. 04/02/2022 12:02 PM
--- NOTE | 2022-04-02 12:28 | CT Scan Report ---
HEAD CT NONCONTRAST CT DOSE: HISTORY: Headache. Fall. TECHNIQUE: Multiaxial CT images of the head were performed without the use of intravenous contrast. A utomated exposure control was utilized for this study. A dose lowering technique was utilized adheri ng to the principles of ALARA. Comparison: None. Findings: The paranasal sinuses and mastoid air cells are clear. The calvarium and skull base are int act. The ventricles and sulci are within normal limits. There is no mass, hematoma, midline shift, or acute infarct. Impression: No acute intracranial abnormality. ACT 112: Negative or not required by law. Electronically signed by: Ashwin Maxwell M.D. 04/02/2022 12:25 PM
--- NOTE | 2022-04-02 12:31 | CT Scan Report ---
CERVICAL SPINE CT CT DOSE: 1112.04 mGy.cm HISTORY: fall TECHNIQUE: Multiaxial CT images of the cervical spine were performed and reformatted in the sagittal and coronal plane without the use of contrast. A dose lowering technique was utilized adhering to th e principles of ALARA. COMPARISON: None. FINDINGS: No fractures. No subluxation. Prevertebral soft tissues and the C1-C2 interval are intact. No pneumothorax. Mild to moderate disc space narrowing throughout the cervical spine most pronounced at the C3-C4 level which demonstrates mild central canal narrowing. IMPRESSION: No fractures within the cervical spine. ACT 112: Negative or not required by law. Electronically signed by: Ashwin Maxwell M.D. 04/02/2022 12:29 PM
[2022-04-02 12:50] LABS: Appearance Urine Clear (Clear); Bacteria Urine Automated Negative (Negative); Bilirubin Urine Negative (Negative); Blood Urine Negative (Negative); Cast Urine Automated 0 /lpf (0-5); Color Urine Yellow; Epithelial Cell Urine Auto 20-30 /lpf (0-5); Glucose Urine UA Negative (Negative); Ketones Urine Negative (Negative); Leukocyte Esterase Urine Negative (Negative); Nitrite Urine Negative (Negative); RBC Urine Automated 0-4 /hpf (0-4); Specific Gravity Urine 1.018 (1.000-1.030); Urobilinogen Urine Negative (Negative); pH Urine 7.5 (4.5-7.5)
[2022-04-02 12:53] LABS: Protein Urine 3+ (Negative)
[2022-04-02 13:01] LABS: Basophils # (auto) 0.03 K/uL (0-0.2); Basophils % (auto) 0.9 %; Hematocrit (blood only) 31.6 % (40.1-51.0); Hemoglobin 10.1 g/dl (14.0-18.0); Immature Granulocytes # (auto) 0.02 K/uL (0.00-0.02); Immature Granulocytes % (auto) 0.6 %; Lymphocytes # (auto) 0.57 K/uL (1.2-3.4); Lymphocytes % (auto) 17.2 %; Mean Corpuscular Hemoglobin 28.5 pg (25.0-34.0); Mean Corpuscular Volume 89.3 fL (80.0-100.0); Neutrophils # (auto) 2.49 K/uL (1.4-6.5); Neutrophils % (auto) 75.3 %; Platelet Count 55 K/uL (130-400); RDW Coefficient of Variation 16.4 % (11.5-14.5); RDW Standard Deviation 54.4 fL (36.4-46.3); Red Blood Count 3.54 M/uL (4.63-6.08); Toxic Vacuolation 1+; White Blood Count 3.31 K/ul (4.8-10.8)
[2022-04-02 13:07] LABS: Albumin Level 3.4 gm/dl (3.4-5.0); BUN Creatinine Ratio 14.7 (10-20); Bilirubin Direct 0.1 mg/dl (0-0.2); Bilirubin,Total 0.6 mg/dl (0.2-1.0); Calcium 7.8 mg/dl (8.5-10.1); Creatinine Clr Calc Pharmacy 53.6 ml/min; Est GFR (African American) 48.4 ml/min; Est GFR (Non-African American) 41.8 ml/min; Magnesium 1.7 mg/dl (1.7-2.4); Potassium 3.5 mmol/L (3.5-5.1); Total Protein 6.5 gm/dl (6.0-8.3); Troponin I High Sensitivity 28.4 pg/ml (0-20)
[2022-04-02 13:19] LABS: Influenza A virus by PCR Negative (Neg); Influenza B virus by PCR Negative (Neg); RSV by PCR Negative (Neg); SARS CoV2 RNA(COVID-19) InHosp NEGATIVE (Negative)
[2022-04-02] MEDS ORDERED: AZITHROMYCIN 500 MG in DEXTROSE 5% 250 ML IV STA (13:43)
[2022-04-02] MEDS ORDERED: cefTRIAXone SODIUM 2,000 MG/70 ML BAG IV STA (13:43)
[2022-04-02] MEDS ORDERED: OPTIRAY 320 500ml IV ONE (13:45)
--- NOTE | 2022-04-02 14:05 | CT Scan Report ---
CHEST CTA for PULMONARY ARTERIES CT DOSE: 911.26 mGy.cm HISTORY: coughing up blood TECHNIQUE: Multiaxial CT images of the chest were performed following the intravenous administration of contrast to evaluate the pulmonary arteries. Maximal intensity projection images were also obtaine d. A dose lowering technique was utilized adhering to the principles of ALARA. COMPARISON STUDY: Abdomen and pelvis CT 12/06/2021. FINDINGS: The visualized liver and spleen are unremarkable. Normal esophagus. The thyroid gland enhan mohsen normally. The heart is borderline enlarged. No pericardial effusion. Trace left pleural effusion. No mediastinal or hilar lymphadenopathy. Moderate calcified plaque within the coronary arteries. No acute fractures identified. Old, healed sternal fracture and a few old, healed bilateral anterior rib fractures. Dense consolidation with air bronchograms involving the majority of the left lower lobe. This likely represents a pneumonia. There are scattered calcifications also seen within the left lowe r lobe. No pneumothorax. The central airways are patent. There is a 6 mm nodule within the right lowe r lobe on image 104. Normal caliber thoracic aorta with no evidence for dissection. There is a weblik e filling defect and a calcified filling defects seen within the left lower lobe segmental pulmonary arteries. This is consistent with a chronic pulmonary embolus. The left lower lobe subsegmental pulmo nary arteries or not well assessed due to the dense consolidation but are likely patent. The remainin g pulmonary arteries show no filling defects to suggest acute pulmonary embolus. IMPRESSION: 1. Nonocclusive weblike filling defects and an intraluminal calcified filling defect within the left lower lobe segmental pulmonary arteries. These likely represent chronic pulmonary emboli. Otherwise, no evidence for an acute pulmonary embolus. 2. Dense consolidation within the left lower lobe with associated air bronchograms. This favors a pne umonia. Recommend 2-[address] follow-up to ensure resolution. 3. Trace left pleural effusion. 4. A 6 mm indeterminate pulmonary nodule in the right lower lobe. This could be reassessed on follow- up chest CT. ACT 112: Negative or not required by law. Electronically signed by: Ashwin Maxwell M.D. 04/02/2022 2:03 PM
--- NOTE | 2022-04-02 15:16 | Electrocardiogram Report ---
Test Reason : Blood Pressure : / mmHG Vent. Rate : 093 BPM Atrial Rate : 093 BPM P-R Int : 156 ms QRS Dur : 108 ms QT Int : 374 ms P-R-T Axes : 065 030 023 degrees QTc Int : 465 ms Normal sinus rhythm Old Inferior infarct (cited on or before 10-DEC-2021) Abnormal ECG When compared with ECG of 10-DEC-2021 18:15, No significant change was found Confirmed by Tommy Ruby ([id number]) on 04/02/2022 3:16:47 PM Referred By: REFERRED SELF Confirmed By:Tommy Ruby
--- NOTE | 2022-04-02 15:51 | History & Physical Report ---
Date of Service April 02, 2022 Assessment & Plan (1) Left lower lobe pneumonia: Plan: Presents with fever, chills, cough with hemoptysis Immunocompromise state secondary to multiple myeloma on chemotherapy. Pro-Reyes elevated Chest x-ray unremarkable CT angio chest shows consolidation of left lower lobe Plan; -Continue on ceftriaxone. Doxycycline added for atypical coverage. Will monitor for clinical response. Sputum culture ordered. High risks of complication given his immunocompromise state. - Hemoptysis is likely related with pneumonia. Will monitor for now. We will keep his Eliquis on hold for today. Started on Lovenox for DVT prophylaxis. We will consider pulmonology consult if he has increasing hemoptysis. (2) Multiple myeloma: Plan: status post autologous stem cell transplantation in [place] in 08/2019. He is currently on Revlimid 3 weeks on, 1 week off. He started the cycle about 3 days ago Hold the medication for now; will reach out to his oncologist Dr. Earl. On acyclovir p.o. twice daily for suppressive therapy. (3) DVT (deep venous thrombosis): Plan: CT angio chest showed old PE in left lower lobe. On Eliquis at home. Currently on hold due to hemoptysis. Will resume after hematemesis improved. On DVT PPx. (4) Paroxysmal A-fib: Plan: On metoprolol, Eliquis on hold. (5) Type 2 diabetes mellitus: Plan: Takes 100 unit of Basaglar monday to Monday when he takes dexamethasone weekly on Monday. ACH S. Lantus dose slightly decreased to 25 units twice daily for now. Short- acting insulin added with meals. A1c ordered (6) CKD (chronic kidney disease): Plan: History of CKD. Urinalysis showed 3+ proteinuria. BMP on admission shows creatinine at baseline. Plan Hyperlipidemiacontinue Lipitor Mood disordercontinue on sertraline, Cymbalta and trazodone. Hypertensioncontinue on losartan DVT Lovenox, home Eliquis on hold. DNR/DNI. DispoHome after resolution of medical issues. Plan discussed with son Davon at bedside. Answered question. History of Present Illness Chief Complaint: Fever, cough for 2 days Hemoptysis for 1 day Primary Care Provider: Erick Cardona MD History obtained from patient and records Past medical history significant for multiple myeloma status post HSCT on chemotherapy and acyclovir suppression treatment, CAD, paroxysmal A. 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 The cough is productive with mucopurulent discharge. It was associated with hemoptysis since 1 AM today morning. Patient reports 6 episodes of cough with hemoptysis so far prior to the presentation. The hemoptysis episodes are mostly mixed with sputum. He also complains of subjective fever for past 2 days; T-max measured at home of 100.7 F. He reports pain on lower back and left lower side of his chest which increases more on coughing. He reports generalized weakness as well. Patient past medical history was reviewed. He has history of multiple myeloma; status post autologous stem cell transplantation in [place] in 09/05. He is currently on Revlimid 3 weeks on, 1 week off. He started the cycle about 3 days ago. He is on dexamethasone 20 mg every Monday. He takes insulin Basaglar 100 units on Monday to Monday; takes 60 units on other days. He is also on Trulicity. He has history of A. fib, DVT on Eliquis. On presentation to the ED, his temperature was 37.6 C, normotensive and saturating well in room air. Lab work showed pancytopenia; hemoglobin 10.1 which is similar to his last lab work. BMP was consistent with history of CKD. His Pro-Reyes was elevated. Chest x-ray did not show any acute finding. CT angio chest showed consolidation of left lower lobe and findings consistent with the same side. Patient was given dose of ceftriaxone and azithromycin and was admitted to telemetry floor. 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 Allergies Allergy/AdvReac Type Severity Reaction Status Date / Time doxycycline Allergy Diarrhea Verified 12/11/21 00:42 latex Allergy Rash Verified 12/11/21 00:42 Home Medications Medication Instructions Recorded Confirmed Type Acetaminophen Extra Strength 1 tab Q4 PRN Pain 12/11/21 04/02/22 History Lactobacillus acidophilus 1 tab DAILY 12/11/21 04/02/22 History acyclovir 800 mg tablet 800 mg BID 12/11/21 04/02/22 History apixaban 5 mg tablet (Eliquis) 5 mg BID 12/11/21 04/02/22 History cholecalciferol (vitamin D3) 2,000 units PO DAILY 12/11/21 04/02/22 History dulaglutide 3 mg/0.5 mL 3 mg subcut WK 12/11/21 04/02/22 History subcutaneous pen injector (Trulicity) duloxetine 60 mg capsule,delayed 60 mg PO BID 12/11/21 04/02/22 History release fenofibrate nanocrystallized 48 mg 48 mg PO DAILY 12/11/21 04/02/22 History tablet ferrous gluconate 324 mg (38 mg 325 mg DAILY 12/11/21 04/02/22 History iron) tablet insulin glargine 100 unit/mL (3 76 unit subcut DAILY 12/11/21 04/02/22 History mL) subcutaneous pen (Lantus Solostar U-100 Insulin) losartan 25 mg tablet 50 mg PO DAILY 12/11/21 04/02/22 History magnesium oxide 400 mg DAILY 12/11/21 04/02/22 History metoprolol succinate 50 mg 50 mg PO DAILY 12/11/21 04/02/22 History tablet,extended release 24 hr multivitamin 1 tab DAILY 12/11/21 04/02/22 History omeprazole 40 mg capsule,delayed 40 mg DAILY 12/11/21 04/02/22 History release rosuvastatin 40 mg tablet 40 mg DAILY 12/11/21 04/02/22 History sertraline 200 mg capsule 200 mg PO DAILY 12/11/21 04/02/22 History simethicone 125 mg PO DAILY 12/11/21 04/02/22 History trazodone 100 mg tablet 100 mg HS 12/11/21 04/02/22 History Past Med/Surg History Medical History Multiple myeloma Social History Smoking Status: Never smoker Second Hand Exposure: No; Hx Alcohol Use: No Hx Substance Use: No Preferred Language: Greek Communication Ability: Effective Flag Car Driver Required: No Beliefs That Will Affect Care: None marital status: Single Current Living Situation: Alone Feels Safe at Home: Yes Assistive Devices: None Review of Systems Review of Systems: All systems reviewed & are unremarkable except as noted in Subjective Physical Exam Physical Exam: Constitutional: Alert, oriented x3; lying comfortably in bed. Not in any distress. Morbidly obese. Head: Normocephalic, Atraumatic Eyes: PERRL, conjunctivae normal, anicteric sclerae ENMT: external ear and nose normal, oropharynx normal Neck: trachea midline, no thyromegaly normal visual inspection Respiratory: Decreased breath sound at left lower base with few crackles. Cardiovascular: RRR, no murmur, no edema Vessels: no JVD or carotid bruit Chest: normal inspection of chest Abdomen: normal bowel sounds, soft, nontender, no hepatosplenomegaly Musculoskeletal: no cyanosis or clubbing, extremities motor strength 5/5 Skin: no rashes, warm and dry normal turgor Neurologic: PERRL, EOMI, accommodation nl, no face palsy, no dysarthria CN's II- XI intact bilaterally and moves all extremities Psychiatric: A+Ox3, euthymic affect Lymphatic: no cervical or axillary lymphadenopathy : deferred Results & Data Results & Data ([facility]) Vital Signs (Past 12 Hours) Vital Signs Temp Pulse Pulse Resp BP BP Pulse Ox 04/02/22 14:00 88 18 127/55 L 97 04/02/22 12:41 94 H 20 97 04/02/22 12:41 93 H 20 135/75 96 04/02/22 11:25 37.6 C H 86 18 116/64 97 O2 Del Method 04/02/22 14:00 Room Air 04/02/22 12:41 Room Air 04/02/22 12:41 Room Air 04/02/22 11:25 Room Air Laboratory Results Laboratory Results WBC 3.31 K/ul (4.8-10.8) L 04/02/22 10:15 RBC 3.54 M/uL (4.63-6.08) L 04/02/22 10:15 Hgb 10.1 g/dl (14.0-18.0) L 04/02/22 10:15 Hct 31.6 % (40.1-51.0) L 04/02/22 10:15 MCV 89.3 fL (80.0-100.0) 04/02/22 10:15 MCH 28.5 pg (25.0-34.0) 04/02/22 10:15 MCHC 32.0 g/dL (32.0-36.0) 04/02/22 10:15 RDW Std Deviation 54.4 fL (36.4-46.3) H 04/02/22 10:15 RDW Coeff of Zohra 16.4 % (11.5-14.5) H 04/02/22 10:15 Plt Count 55 K/uL (130-400) L 04/02/22 10:15 Immature Gran % (Auto) 0.6 % 04/02/22 10:15 Neut % (Auto) 75.3 % 04/02/22 10:15 Lymph % (Auto) 17.2 % 04/02/22 10:15 Sandoval % (Auto) 6.0 % 04/02/22 10:15 Eos % (Auto) 0.0 % 04/02/22 10:15 Baso % (Auto) 0.9 % 04/02/22 10:15 Neut # (Auto) 2.49 K/uL (1.4-6.5) 04/02/22 10:15 Lymph # (Auto) 0.57 K/uL (1.2-3.4) L 04/02/22 10:15 Sandoval # (Auto) 0.20 K/uL (0.24-0.82) L 04/02/22 10:15 Eos # (Auto) 0.00 K/uL (0-0.50) 04/02/22 10:15 Baso # (Auto) 0.03 K/uL (0-0.2) 04/02/22 10:15 Immature Gran # (Auto) 0.02 K/uL (0.00-0.02) 04/02/22 10:15 Toxic Vacuolation 1+ 04/02/22 10:15 Sodium 136 mmol/L (136-145) 04/02/22 10:15 Potassium 3.5 mmol/L (3.5-5.1) 04/02/22 10:15 Chloride 104 mmol/L (98-107) 04/02/22 10:15 Carbon Dioxide 19 mmol/L (21-32) L 04/02/22 10:15 Anion Gap 13 (3-11) H 04/02/22 10:15 BUN 24 mg/dl (6-23) H 04/02/22 10:15 Creatinine 1.63 mg/dl (0.6-1.4) H 04/02/22 10:15 Est Cr Clr Drug Dosing 53.6 ml/min 04/02/22 10:15 Est GFR ( Amer) 48.4 ml/min 04/02/22 10:15 Est GFR (Non-Af Amer) 41.8 ml/min 04/02/22 10:15 BUN/Creatinine Ratio 14.7 (10-20) 04/02/22 10:15 Glucose 134 mg/dl (70-99(Fasting)) H 04/02/22 10:15 Lactate 1.6 mmol/L (0.4-2.0) 04/02/22 12:35 Calcium 7.8 mg/dl (8.5-10.1) L 04/02/22 10:15 Magnesium 1.7 mg/dl (1.7-2.4) 04/02/22 10:15 Total Bilirubin 0.6 mg/dl (0.2-1.0) 04/02/22 10:15 Direct Bilirubin 0.1 mg/dl (0-0.2) 04/02/22 10:15 AST 14 U/L (13-39) 04/02/22 10:15 ALT 20 U/L (7-52) 04/02/22 10:15 Alkaline Phosphatase 30 U/L (34-104) L 04/02/22 10:15 Troponin I High Sens 28.4 pg/ml (0-20) H 04/02/22 10:15 Total Protein 6.5 gm/dl (6.0-8.3) 04/02/22 10:15 Albumin 3.4 gm/dl (3.4-5.0) 04/02/22 10:15 Procalcitonin 13.57 ng/ml (0-0.5) H 04/02/22 10:15 Urine Color Yellow 04/02/22 12:20 Urine Appearance Clear (Clear) 04/02/22 12:20 Urine pH 7.5 (4.5-7.5) 04/02/22 12:20 Ur Specific [place] 1.018 (1.000-1.030) 04/02/22 12:20 Urine Protein 3+ (Negative) H 04/02/22 12:20 Urine Glucose (UA) Negative (Negative) 04/02/22 12:20 Urine Ketones Negative (Negative) 04/02/22 12:20 Urine Blood Negative (Negative) 04/02/22 12:20 Urine Nitrite Negative (Negative) 04/02/22 12:20 Urine Bilirubin Negative (Negative) 04/02/22 12:20 Urine Urobilinogen Negative (Negative) 04/02/22 12:20 Ur Leukocyte Esterase Negative (Negative) 04/02/22 12:20 Urine WBC (Auto) 1-5 /hpf (0-5) 04/02/22 12:20 Urine RBC (Auto) 0-4 /hpf (0-4) 04/02/22 12:20 U Hyaline Cast (Auto) 0 /lpf (0-5) 04/02/22 12:20 U Epithel Cells (Auto) 20-30 /lpf (0-5) H 04/02/22 12:20 Urine Bacteria (Auto) Negative (Negative) 04/02/22 12:20 SARS-CoV-2 (PCR) NEGATIVE (Negative) 04/02/22 12:15 Influenza Type A (PCR) Negative (Neg) 04/02/22 12:15 Influenza Type B (PCR) Negative (Neg) 04/02/22 12:15 RSV (RT-PCR) Negative (Neg) 04/02/22 12:[address] 04/02/22 11:[address] DOSE: 1112.04 mGy.cm HISTORY: fall TECHNIQUE: Multiaxial CT images of the cervical spine were performed and reformatted in the sagittal and coronal plane without the use of contrast. A dose lowering technique was utilized adhering to the principles of ALARA. COMPARISON: None. FINDINGS: No fractures. No subluxation. Prevertebral soft tissues and the C1-C2 interval are intact. No pneumothorax. Mild to moderate disc space narrowing throughout the cervical spine most pronounced at the C3-C4 level which demonstrates mild central canal narrowing. IMPRESSION: No fractures within the cervical spine. ACT 112: Negative or not required by law. Electronically signed by: Ashwin Maxwell M.D. 04/02/2022 12:29 PM Chest X-Ray 04/02/22 11:37 XR chest 1V portable HISTORY: Sepsis COMPARISON: Chest 12/13/2021. FINDINGS: No pneumothorax. No pleural effusions. No evidence for pulmonary edema. The cardiac silhouette remains borderline enlarged. Questionable left basilar density is likely due to overlapping soft tissue. Otherwise, no focal lung consolidations to suggest a pneumonia. IMPRESSION: No acute process. ACT 112: Negative or not required by law. Electronically signed by: Ashwin Maxwell M.D. 04/02/2022 12:[address] 04/02/22 11:[address] DOSE: HISTORY: Headache. Fall. TECHNIQUE: Multiaxial CT images of the head were performed without the use of intravenous contrast. Automated exposure control was utilized for this study. A dose lowering technique was utilized adhering to the principles of ALARA. Comparison: None. Findings: The paranasal sinuses and mastoid air cells are clear. The calvarium and skull base are intact. The ventricles and sulci are within normal limits. There is no mass, hematoma, midline shift, or acute infarct. Impression: No acute intracranial abnormality. ACT 112: Negative or not required by law. Electronically signed by: Ashwin Maxwell M.D. 04/02/2022 12:25 PM Chest CTA 04/02/22 13:08 CHEST CTA for PULMONARY ARTERIES CT DOSE: 911.26 mGy.cm HISTORY: coughing up blood TECHNIQUE: Multiaxial CT images of the chest were performed following the intravenous administration of contrast to evaluate the pulmonary arteries. Maximal intensity projection images were also obtained. A dose lowering technique was utilized adhering to the principles of ALARA. COMPARISON STUDY: Abdomen and pelvis CT 12/06/2021. FINDINGS: The visualized liver and spleen are unremarkable. Normal esophagus. The thyroid gland enhances normally. The heart is borderline enlarged. No pericardial effusion. Trace left pleural effusion. No mediastinal or hilar lymphadenopathy. Moderate calcified plaque within the coronary arteries. No acute fractures identified. Old, healed sternal fracture and a few old, healed bilateral anterior rib fractures. Dense consolidation with air bronchograms involving the majority of the left lower lobe. This likely represents a pneumonia. There are scattered calcifications also seen within the left lower lobe. No pneumothorax. The central airways are patent. There is a 6 mm nodule within the right lower lobe on image 104. Normal caliber thoracic aorta with no evidence for dissection. There is a weblike filling defect and a calcified filling defects seen within the left lower lobe segmental pulmonary arteries. This is consistent with a chronic pulmonary embolus. The left lower lobe subsegmental pulmonary arteries or not well assessed due to the dense consolidation but are likely patent. The remaining pulmonary arteries show no filling defects to suggest acute pulmonary embolus. IMPRESSION: 1. Nonocclusive weblike filling defects and an intraluminal calcified filling defect within the left lower lobe segmental pulmonary arteries. These likely represent chronic pulmonary emboli. Otherwise, no evidence for an acute pulmonary embolus. 2. Dense consolidation within the left lower lobe with associated air bronchograms. This favors a pneumonia. Recommend 2-[address] follow-up to ensure resolution. 3. Trace left pleural effusion. 4. A 6 mm indeterminate pulmonary nodule in the right lower lobe. This could be reassessed on follow-up chest CT. ACT 112: Negative or not required by law. Electronically signed by: Ashwin Maxwell M.D. 04/02/2022 2:03 PM ECG Additional Comments: Normal sinus rhythm, Q waves in inferior leads similar to before. Code Status & VTE Plan Code Status Discussed CODE STATUS with patient at bedside; confirms DNR/DNI VTE Prophylaxis Plan VTE Prophylaxis will be ordered: Yes
[2022-04-02] MEDS ORDERED: GLUCOSE 40% GEL 15 GM TUBE PO PRN (16:08)
[2022-04-02] MEDS ORDERED: PHARMACY GLYCEMIC MGMT CONSULT PRN (16:08)
[2022-04-02] MEDS ORDERED: GLUCAGON FOR INJ 1 MG VIAL SQ PRN (16:08)
[2022-04-02] MEDS ORDERED: DEXTROSE 50% 50 ML SYRINGE IV PRN (16:08)
[2022-04-02] MEDS ORDERED: POLYETHYLENE (MIRALAX) 17 GM PACK PO PRN (16:08)
[2022-04-02] MEDS ORDERED: CARBOHYDRATES FOR HYPOGLYCEMIA PO PRN (16:08)
[2022-04-02] MEDS ORDERED: GLUCOSE 10 TAB/TUBE PO PRN (16:08)
[2022-04-02] MEDS: SODIUM CHLORIDE 0.9% 1000ML 1,000 ML IV SCH (16:37)
[2022-04-02] MEDS: ACETAMINOPHEN 325 MG TAB PO PRN (16:41)
[2022-04-02] MEDS: INSULIN ASPART PER UNIT SC SCH ×2 (17:33→20:28)
[2022-04-02] MEDS: METOPROLOL SUCC 50MG EXT REL TAB PO SCH (17:36)
[2022-04-02] MEDS: DULoxetine HCL 60 MG CAP PO SCH (20:28)
[2022-04-02] MEDS: traZODone HCL 100 MG TAB PO SCH (20:37)
[2022-04-02] MEDS ORDERED: LANTUS PER UNIT CHARGE SQ SCH (21:00)
[2022-04-02] MEDS ORDERED: DOXYCYCLINE HYCLATE 100 MG CAP PO SCH (21:00)
[2022-04-02] MEDS: ACYCLOVIR 400 MG TAB PO SCH (21:58)
[2022-04-03] MEDS: ACETAMINOPHEN 325 MG TAB PO PRN ×2 (00:11→08:28)
[2022-04-03] MEDS ORDERED: COUGH DROP (SUGAR FREE) LOZ 24 LOZ/1 BOX BUCCAL ONE (01:26)
[2022-04-03] MEDS: SODIUM CHLORIDE 0.9% 1000ML 1,000 ML IV SCH (04:51)
[2022-04-03 06:35] LABS: Hematocrit (blood only) 34.4 % (40.1-51.0); Hemoglobin 10.9 g/dl (14.0-18.0); White Blood Count 4.06 K/ul (4.8-10.8)
[2022-04-03 06:54] LABS: BUN Creatinine Ratio 12.3 (10-20); Calcium 7.8 mg/dl (8.5-10.1); Creatinine Clr Calc Pharmacy 53.5 ml/min; Est GFR (African American) 48.8 ml/min; Est GFR (Non-African American) 42.1 ml/min; Potassium 3.6 mmol/L (3.5-5.1)
[2022-04-03 07:00] LABS: Basophils # (auto) 0.02 K/uL (0-0.2); Basophils % (auto) 0.5 %; Dohle Bodies 1+; Eosinophils # (auto) 0.02 K/uL (0-0.50); Eosinophils % (auto) 0.5 %; Immature Granulocytes # (auto) 0.04 K/uL (0.00-0.02); Lymphocytes # (auto) 1.21 K/uL (1.2-3.4); Lymphocytes % (auto) 29.8 %; Mean Corpuscular Hemoglobin 28.1 pg (25.0-34.0); Mean Corpuscular Hgb Conc 31.7 g/dL (32.0-36.0); Mean Corpuscular Volume 88.7 fL (80.0-100.0); Monocytes # (auto) 0.13 K/uL (0.24-0.82); Monocytes % (auto) 3.2 %; Neutrophils # (auto) 2.64 K/uL (1.4-6.5); Platelet Count 76 K/uL (130-400); RDW Standard Deviation 55.2 fL (36.4-46.3); Red Blood Count 3.88 M/uL (4.63-6.08); Toxic Granulation 1+
[2022-04-03] MEDS ORDERED: CEFEPIME 1,000 MG in SYRINGE 0 ML IV SCH (08:15)
[2022-04-03] MEDS: METOPROLOL SUCC 50MG EXT REL TAB PO SCH (08:28)
[2022-04-03] MEDS: ROSUVASTATIN CALCIUM 20 MG TAB PO SCH (08:29)
[2022-04-03] MEDS: SERTRALINE HCL 100 MG TABLET PO SCH (08:29)
[2022-04-03] MEDS: ACYCLOVIR 400 MG TAB PO SCH ×2 (08:29→20:48)
[2022-04-03] MEDS: MULTIVITAMIN TAB PO SCH (08:29)
[2022-04-03] MEDS: MAGNESIUM OXIDE 400 MG TAB PO SCH (08:29)
[2022-04-03] MEDS: SIMETHICONE 80 MG CHEW PO SCH (08:29)
[2022-04-03] MEDS: PANTOprazole 40 MG TAB PO SCH (08:29)
[2022-04-03] MEDS: DULoxetine HCL 60 MG CAP PO SCH ×2 (08:29→20:47)
[2022-04-03] MEDS: FENOFIBRATE NANOCRYSTALLIZED 48 MG TABLET PO SCH (08:30)
[2022-04-03] MEDS: INSULIN ASPART PER UNIT SC SCH ×4 (08:31→20:48)
[2022-04-03] MEDS: APIXABAN 5 MG TABLET PO SCH ×2 (08:42→20:47)
[2022-04-03] MEDS: CEFEPIME 2,000 MG in SYRINGE 0 ML IV SCH ×2 (08:43→20:55)
[2022-04-03] MEDS ORDERED: LANTUS PER UNIT CHARGE SQ SCH (09:00)
[2022-04-03] MEDS ORDERED: cefTRIAXone SODIUM 2,000 MG in DEXTROSE 5% 50 ML IV SCH (09:00)
[2022-04-03] MEDS ORDERED: ENOXAPARIN INJ 40 MG/0.4 ML SYR SQ SCH (09:00)
[2022-04-03] MEDS ORDERED: LOSARTAN POTASSIUM 50 MG TAB PO SCH (09:00)
[2022-04-03] MEDS ORDERED: ACETAMINOPHEN 325 MG TAB PO PRN (09:18)
[2022-04-03] MEDS: AZITHROMYCIN 250 MG TAB PO SCH (10:42)
[2022-04-03] MEDS: HYDROCODONE/ACETAMOPHEN 5/325MG TAB PO PRN ×2 (10:42→20:54)
--- NOTE | 2022-04-03 13:18 | Pharmacy Report ---
Pharmacy Glycemic Short Note 2 - Date of Service April 03, 2022 - Glycemic Short BSG Results (Last 24 hours): 04/02/22 04/02/22 04/03/22 16:18 20:15 05:50 Glucose 143 H POC Glucose 110 H 127 H 04/03/22 04/03/22 07:41 11:27 Glucose POC Glucose 162 H 231 H OUTPATIENT ANTIDIABETIC REGIMEN: * Lantus 60 units daily * HbA1C = 8.3% (11/2021) ASSESSMENT: * Mr Frank is a 71 y/o M with a PMH of T2DM on insulin who presents with lower lobe pneumonia. * When patient was admitted in November 2021, patient tolerated Lantus 10 units daily with Novolog CF 25 CR 15. Patient's blood sugars were adequately controlled albeit above goal. Patient was on dexamethasone 6 mg IV daily. * In general, fastings were above goal on lantus 10 units daily. Currently fasting is 162 mg/dL. Will start with Lantus 20 units daily and trend Lantus. * For Novolog, will use weight-based stress of 2 dosing (which is slightly tighter than previous admission) PLAN FOR INPATIENT GLYCEMIC CONTROL: * Basal insulin * Lantus 20 units SQ qAM (Lantus 30 units if BSG > 150 mg/dL starting 04/04/22) * Bolus insulin * NovoLog per scale ACHS or Q6hrs while NPO * Goal Range: Low 110 mg/dL - High 140 mg/dL * Correction Factor: 25 mg/dL/unit * Nutritional / Prandial insulin per carb ratio of 1 unit per 7 grams CHO consumed
--- NOTE | 2022-04-03 15:02 | Hospitalist Progress Note ---
Date of Service April 03, 2022 Assessment & Plan (1) Left lower lobe pneumonia: Plan: Presents with fever, chills, cough with hemoptysis Immunocompromise state secondary to multiple myeloma on chemotherapy. Pro-Reyes elevated Chest x-ray unremarkable CT angio chest shows consolidation of left lower lobe Sputum gram stainmoderate WBC with few gram-positive cocci, few gram-negative bacilli. Hemoglobin stable Plan; -Antibiotics changed to cefepime as patient has immunocompromise state and continues to be febrile. On azithromycin as well D2/D3. Will monitor for clinical response. High risks of complication given his immunocompromise state. - Hemoptysis is likely related with pneumonia. Improving. Will resume his Eliquis. (2) Multiple myeloma: Plan: status post autologous stem cell transplantation in [place] in 08/2019. He is currently on Revlimid 3 weeks on, 1 week off. He started the cycle about 3 days ago Hold the medication for now; will reach out to his oncologist Dr. Earl tomorrow On acyclovir p.o. twice daily for suppressive therapy. (3) DVT (deep venous thrombosis): Plan: CT angio chest showed old PE in left lower lobe. On Eliquis at home. Resume Eliquis as hemoptysis is improving. (4) Paroxysmal A-fib: Plan: On metoprolol, Eliquis on hold. (5) Type 2 diabetes mellitus: Plan: Takes 100 unit of Basaglar monday to Monday when he takes dexamethasone weekly on Monday. ACH S. Lantus dose slightly decreased to 20 units twice daily as per pharmacy. (6) CKD (chronic kidney disease): Plan: History of CKD. Urinalysis showed 3+ proteinuria. BMP on admission shows creatinine at baseline. Plan Hyperlipidemiacontinue Lipitor Mood disordercontinue on sertraline, Cymbalta and trazodone. Hypertensioncontinue on losartan DVT Lovenox, home Eliquis on hold. DNR/DNI. DispoHome after resolution of medical issues. Admission and Anticipated Discharge Date Admission Date: April 02, 2022 Subjective Patient febrile to 38.9 C in the morning. He reports that hemoptysis has improved compared to presentation. He continues to complain of cough and generalized weakness. Review of Systems Review of Systems: All systems reviewed & are unremarkable except as noted in Subjective Physical Exam Physical Exam: Constitutional: Alert, oriented x3; lying comfortably in bed. Not in any distress. Morbidly obese. Head: Normocephalic, Atraumatic Eyes: PERRL, conjunctivae normal, anicteric sclerae ENMT: external ear and nose normal, oropharynx normal Neck: trachea midline, no thyromegaly normal visual inspection Respiratory: Decreased breath sound at left lower base with few crackles. Cardiovascular: RRR, no murmur, no edema Vessels: no JVD or carotid bruit Chest: normal inspection of chest Abdomen: normal bowel sounds, soft, nontender, no hepatosplenomegaly Musculoskeletal: no cyanosis or clubbing, extremities motor strength 5/5 Skin: no rashes, warm and dry normal turgor Neurologic: PERRL, EOMI, accommodation nl, no face palsy, no dysarthria CN's II- XI intact bilaterally and moves all extremities Psychiatric: A+Ox3, euthymic affect Lymphatic: no cervical or axillary lymphadenopathy : deferred Results & Data Results & Data ([facility]) Vital Signs (Past 12 Hours) Vital Signs Temp Pulse Pulse Resp BP BP Pulse Ox 04/03/22 12:00 36.8 C 88 114/62 93 04/03/22 10:01 04/03/22 08:19 38.9 C H 101 H 20 121/67 93 04/03/22 07:34 99 H 04/03/22 03:45 36.3 C L 79 20 106/71 90 O2 Del Method 04/03/22 12:00 Room Air 04/03/22 10:01 Room Air 04/03/22 08:19 Room Air 04/03/22 07:34 04/03/22 03:45 Room Air Laboratory Results Laboratory Results WBC 4.06 K/ul (4.8-10.8) L 04/03/22 05:50 RBC 3.88 M/uL (4.63-6.08) L 04/03/22 05:50 Hgb 10.9 g/dl (14.0-18.0) L 04/03/22 05:50 Hct 34.4 % (40.1-51.0) L 04/03/22 05:50 MCV 88.7 fL (80.0-100.0) 04/03/22 05:50 MCH 28.1 pg (25.0-34.0) 04/03/22 05:50 MCHC 31.7 g/dL (32.0-36.0) L 04/03/22 05:50 RDW Std Deviation 55.2 fL (36.4-46.3) H 04/03/22 05:50 RDW Coeff of Zohra 17.0 % (11.5-14.5) H 04/03/22 05:50 Plt Count 76 K/uL (130-400) L 04/03/22 05:50 Immature Gran % (Auto) 1.0 % 04/03/22 05:50 Neut % (Auto) 65.0 % 04/03/22 05:50 Lymph % (Auto) 29.8 % 04/03/22 05:50 [place] % (Auto) 3.2 % 04/03/22 05:50 Eos % (Auto) 0.5 % 04/03/22 05:50 Baso % (Auto) 0.5 % 04/03/22 05:50 Neut # (Auto) 2.64 K/uL (1.4-6.5) 04/03/22 05:50 Lymph # (Auto) 1.21 K/uL (1.2-3.4) 04/03/22 05:50 [place] # (Auto) 0.13 K/uL (0.24-0.82) L 04/03/22 05:50 Eos # (Auto) 0.02 K/uL (0-0.50) 04/03/22 05:50 Baso # (Auto) 0.02 K/uL (0-0.2) 04/03/22 05:50 Immature Gran # (Auto) 0.04 K/uL (0.00-0.02) H 04/03/22 05:50 Toxic Granulation 1+ 04/03/22 05:50 Toxic Vacuolation 1+ 04/02/22 10:15 Dohle Bodies 1+ 04/03/22 05:50 Sodium 139 mmol/L (136-145) 04/03/22 05:50 Potassium 3.6 mmol/L (3.5-5.1) 04/03/22 05:50 Chloride 108 mmol/L (98-107) H 04/03/22 05:50 Carbon Dioxide 19 mmol/L (21-32) L 04/03/22 05:50 Anion Gap 12 (3-11) H 04/03/22 05:50 BUN 20 mg/dl (6-23) 04/03/22 05:50 Creatinine 1.62 mg/dl (0.6-1.4) H 04/03/22 05:50 Est Cr Clr Drug Dosing 53.5 ml/min 04/03/22 05:50 Est GFR ( Amer) 48.8 ml/min 04/03/22 05:50 Est GFR (Non-Af Amer) 42.1 ml/min 04/03/22 05:50 BUN/Creatinine Ratio 12.3 (10-20) 04/03/22 05:50 Glucose 143 mg/dl (70-99(Fasting)) H 04/03/22 05:50 POC Glucose 231 mg/dl (70-99) H 04/03/22 11:27 Lactate 1.6 mmol/L (0.4-2.0) 04/02/22 12:35 Calcium 7.8 mg/dl (8.5-10.1) L 04/03/22 05:50 Magnesium 1.7 mg/dl (1.7-2.4) 04/02/22 10:15 Total Bilirubin 0.6 mg/dl (0.2-1.0) 04/02/22 10:15 Direct Bilirubin 0.1 mg/dl (0-0.2) 04/02/22 10:15 AST 14 U/L (13-39) 04/02/22 10:15 ALT 20 U/L (7-52) 04/02/22 10:15 Alkaline Phosphatase 30 U/L (34-104) L 04/02/22 10:15 Troponin I High Sens 28.4 pg/ml (0-20) H 04/02/22 10:15 Total Protein 6.5 gm/dl (6.0-8.3) 04/02/22 10:15 Albumin 3.4 gm/dl (3.4-5.0) 04/02/22 10:15 Procalcitonin 13.57 ng/ml (0-0.5) H 04/02/22 10:15 Urine Color Yellow 04/02/22 12:20 Urine Appearance Clear (Clear) 04/02/22 12:20 Urine pH 7.5 (4.5-7.5) 04/02/22 12:20 Ur Specific [place] 1.018 (1.000-1.030) 04/02/22 12:20 Urine Protein 3+ (Negative) H 04/02/22 12:20 Urine Glucose (UA) Negative (Negative) 04/02/22 12:20 Urine Ketones Negative (Negative) 04/02/22 12:20 Urine Blood Negative (Negative) 04/02/22 12:20 Urine Nitrite Negative (Negative) 04/02/22 12:20 Urine Bilirubin Negative (Negative) 04/02/22 12:20 Urine Urobilinogen Negative (Negative) 04/02/22 12:20 Ur Leukocyte Esterase Negative (Negative) 04/02/22 12:20 Urine WBC (Auto) 1-5 /hpf (0-5) 04/02/22 12:20 Urine RBC (Auto) 0-4 /hpf (0-4) 04/02/22 12:20 U Hyaline Cast (Auto) 0 /lpf (0-5) 04/02/22 12:20 U Epithel Cells (Auto) 20-30 /lpf (0-5) H 04/02/22 12:20 Urine Bacteria (Auto) Negative (Negative) 04/02/22 12:20 Nasal Screen MRSA (PCR) Negative (Negative) 04/02/22 16:12 SARS-CoV-2 (PCR) NEGATIVE (Negative) 04/02/22 12:15 Influenza Type A (PCR) Negative (Neg) 04/02/22 12:15 Influenza Type B (PCR) Negative (Neg) 04/02/22 12:15 RSV (RT-PCR) Negative (Neg) 04/02/22 12:[address] 04/02/22 11:[address] DOSE: 1112.04 mGy.cm HISTORY: fall TECHNIQUE: Multiaxial CT images of the cervical spine were performed and reformatted in the sagittal and coronal plane without the use of contrast. A dose lowering technique was utilized adhering to the principles of ALARA. COMPARISON: None. FINDINGS: No fractures. No subluxation. Prevertebral soft tissues and the C1-C2 interval are intact. No pneumothorax. Mild to moderate disc space narrowing throughout the cervical spine most pronounced at the C3-C4 level which demonstrates mild central canal narrowing. IMPRESSION: No fractures within the cervical spine. ACT 112: Negative or not required by law. Electronically signed by: Ashwin Maxwell M.D. 04/02/2022 12:29 PM Chest X-Ray 04/02/22 11:37 XR chest 1V portable HISTORY: Sepsis COMPARISON: Chest 12/13/2021. FINDINGS: No pneumothorax. No pleural effusions. No evidence for pulmonary edema. The cardiac silhouette remains borderline enlarged. Questionable left basilar density is likely due to overlapping soft tissue. Otherwise, no focal lung consolidations to suggest a pneumonia. IMPRESSION: No acute process. ACT 112: Negative or not required by law. Electronically signed by: Ashwni Maxwell M.D. 04/02/2022 12:[address] 04/02/22 11:[address] DOSE: HISTORY: Headache. Fall. TECHNIQUE: Multiaxial CT images of the head were performed without the use of intravenous contrast. Automated exposure control was utilized for this study. A dose lowering technique was utilized adhering to the principles of ALARA. Comparison: None. Findings: The paranasal sinuses and mastoid air cells are clear. The calvarium and skull base are intact. The ventricles and sulci are within normal limits. There is no mass, hematoma, midline shift, or acute infarct. Impression: No acute intracranial abnormality. ACT 112: Negative or not required by law. Electronically signed by: Ashwin Maxwell M.D. 04/02/2022 12:25 PM Chest CTA 04/02/22 13:08 CHEST CTA for PULMONARY ARTERIES CT DOSE: 911.26 mGy.cm HISTORY: coughing up blood TECHNIQUE: Multiaxial CT images of the chest were performed following the intravenous administration of contrast to evaluate the pulmonary arteries. Maximal intensity projection images were also obtained. A dose lowering technique was utilized adhering to the principles of ALARA. COMPARISON STUDY: Abdomen and pelvis CT 12/06/2021. FINDINGS: The visualized liver and spleen are unremarkable. Normal esophagus. The thyroid gland enhances normally. The heart is borderline enlarged. No pericardial effusion. Trace left pleural effusion. No mediastinal or hilar lymphadenopathy. Moderate calcified plaque within the coronary arteries. No acute fractures identified. Old, healed sternal fracture and a few old, healed bilateral anterior rib fractures. Dense consolidation with air bronchograms involving the majority of the left lower lobe. This likely represents a pneumonia. There are scattered calcifications also seen within the left lower lobe. No pneumothorax. The central airways are patent. There is a 6 mm nodule within the right lower lobe on image 104. Normal caliber thoracic aorta with no evidence for dissection. There is a weblike filling defect and a calcified filling defects seen within the left lower lobe segmental pulmonary arteries. This is consistent with a chronic pulmonary embolus. The left lower lobe subsegmental pulmonary arteries or not well assessed due to the dense consolidation but are likely patent. The remaining pulmonary arteries show no filling defects to suggest acute pulmonary embolus. IMPRESSION: 1. Nonocclusive weblike filling defects and an intraluminal calcified filling defect within the left lower lobe segmental pulmonary arteries. These likely represent chronic pulmonary emboli. Otherwise, no evidence for an acute pu lmonary embolus. 2. Dense consolidation within the left lower lobe with associated air bronchograms. This favors a pneumonia. Recommend 2-[address] follow-up to ensure resolution. 3. Trace left pleural effusion. 4. A 6 mm indeterminate pulmonary nodule in the right lower lobe. This could be reassessed on follow-up chest CT. ACT 112: Negative or not required by law. Electronically signed by: Ashwin Maxwell M.D. 04/02/2022 2:03 PM
[2022-04-03] MEDS: ONDANSETRON INJ 2 MG/ML 2 ML VIAL IV PRN (20:45)
[2022-04-03] MEDS: traZODone HCL 100 MG TAB PO SCH (20:47)
[2022-04-04] MEDS: ONDANSETRON INJ 2 MG/ML 2 ML VIAL IV PRN ×3 (05:41→23:39)
[2022-04-04 07:35] LABS: Estimated Average Glucose 197 mg/dl; Hemoglobin A1C 8.5 % (4.5-5.6)
[2022-04-04 07:44] LABS: Hematocrit (blood only) 32.1 % (40.1-51.0); Hemoglobin 10.4 g/dl (14.0-18.0); White Blood Count 4.05 K/ul (4.8-10.8)
[2022-04-04] MEDS: HYDROCODONE/ACETAMOPHEN 5/325MG TAB PO PRN (07:52)
[2022-04-04] MEDS: INSULIN ASPART PER UNIT SC SCH ×4 (07:57→20:11)
[2022-04-04 08:11] LABS: BUN Creatinine Ratio 14.4 (10-20); Calcium 8.1 mg/dl (8.5-10.1); Creatinine Clr Calc Pharmacy 43.7 ml/min; Est GFR (Non-African American) 33.6 ml/min; Potassium 3.2 mmol/L (3.5-5.1)
[2022-04-04 08:15] LABS: Mean Corpuscular Hemoglobin 28.5 pg (25.0-34.0); Mean Corpuscular Hgb Conc 32.4 g/dL (32.0-36.0); Mean Corpuscular Volume 87.9 fL (80.0-100.0); Mean Platelet Volume 12.9 fL (9.4-12.4); Platelet Count 81 K/uL (130-400); RDW Coefficient of Variation 16.8 % (11.5-14.5); RDW Standard Deviation 54.8 fL (36.4-46.3); Red Blood Count 3.65 M/uL (4.63-6.08)
[2022-04-04 08:20] LABS: Basophils # (auto) 0.02 K/uL (0-0.2); Basophils % (auto) 0.5 %; Echinocytes 1+; Eosinophils # (auto) 0.01 K/uL (0-0.50); Eosinophils % (auto) 0.2 %; Immature Granulocytes # (auto) 0.04 K/uL (0.00-0.02); Lymphocytes # (auto) 0.71 K/uL (1.2-3.4); Lymphocytes % (auto) 17.5 %; Monocytes # (auto) 0.23 K/uL (0.24-0.82); Monocytes % (auto) 5.7 %; Neutrophils # (auto) 3.04 K/uL (1.4-6.5); Neutrophils % (auto) 75.1 %; Polychromasia 1+; Tear Drop Cells 1+
[2022-04-04] MEDS: CEFEPIME 2,000 MG in SYRINGE 0 ML IV SCH ×2 (08:43→20:09)
--- NOTE | 2022-04-04 08:52 | XRay Report ---
KUB HISTORY: Nausea. Vomiting. COMPARISON: KUB 12/14/2021. FINDINGS: Dilated gas-filled loops of large and small bowel are again seen throughout the abdomen. Th e small bowel measures up to 5.9 cm in diameter. This is similar to the prior study. Prior cholecyste ctomy. No renal calculi. No ureteral calculi. Calcifications in the deep pelvis likely represent phl eboliths. No pneumoperitoneum or pneumatosis. IMPRESSION: Dilated gas-filled loops of large and small bowel are again seen throughout the abdomen which is [place] to the prior study. This could represent an ileus or partial small bowel obstruction. ACT 112: Negative or not required by law. Electronically signed by: Ashwin Maxwell M.D. 04/04/2022 8:51 AM
[2022-04-04] MEDS ORDERED: LANTUS PER UNIT CHARGE SQ SCH ×3 (09:00→21:00)
[2022-04-04] MEDS: MAGNESIUM OXIDE 400 MG TAB PO SCH (09:20)
[2022-04-04] MEDS: APIXABAN 5 MG TABLET PO SCH ×2 (09:20→20:12)
[2022-04-04] MEDS: DULoxetine HCL 60 MG CAP PO SCH ×2 (09:20→20:11)
[2022-04-04] MEDS: SIMETHICONE 80 MG CHEW PO SCH (09:20)
[2022-04-04] MEDS: PANTOprazole 40 MG TAB PO SCH (09:20)
[2022-04-04] MEDS: AZITHROMYCIN 250 MG TAB PO SCH (09:21)
[2022-04-04] MEDS: ROSUVASTATIN CALCIUM 20 MG TAB PO SCH (09:21)
[2022-04-04] MEDS: ACYCLOVIR 400 MG TAB PO SCH ×2 (09:21→20:10)
[2022-04-04] MEDS: SERTRALINE HCL 100 MG TABLET PO SCH (09:21)
[2022-04-04] MEDS: METOPROLOL SUCC 50MG EXT REL TAB PO SCH (09:21)
[2022-04-04] MEDS: FENOFIBRATE NANOCRYSTALLIZED 48 MG TABLET PO SCH (09:22)
[2022-04-04] MEDS: MULTIVITAMIN TAB PO SCH (09:22)
--- NOTE | 2022-04-04 09:37 | Electrocardiogram Report ---
Test Reason : Blood Pressure : / mmHG Vent. 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
--- NOTE | 2022-04-04 12:05 | Surgery Consultation ---
Date of Consultation April 04, 2022 Assessment & Plan (1) Abdominal pain: (2) Nausea and vomiting: (3) Left lower lobe pneumonia: Plan 71 year-old male admitted to hospital for left lower lobe pneumonia with cough, fever, generalized weakness and hemoptysis. KUB today for nausea and vomiting showing ileus vs psbo. He was admitted to [facility] in November [address] for COVID and had CT scan of abd/pelvis at that time consistent with Ileus but has right ventral hernias containing small bowel. Has extensive abdominal surgical history dating back to 2012 with multiple abdominal surgeries at [facility] including right partial nephrectomy with postoperative complications l eading to open cholecystectomy, nephrostomy tube for nephrocolic fistula, right total nephrectomy, right hemicolectomy with ileostomy and subsequent reversal for necrotic bowel later that year. Plan: Would recommend obtaining CT scan of abd and pelvis with IV contrast to further evaluate given prior CT scan findings during his last admission to ensure there is now bowel obstruction at site of his right ventral hernias. He likely has ileus from his current respiratory infection. No indication for surgery at this time. NPO for bowel rest, IV fluids, pain management as needed and encourage ambulation to increase GI motility. Patient seen with Dr. Cervantes who evaluated and examined patient. Please see addendum for further recommendations/plan. Supervising Physician Co-Signing Physician Notes I have seen and examined the patient personally and agree with the above assessment and plan. This appears to be more an ileus due to the pneumonia versus an actual bowel obstruction. We will obtain a CT scan for further evaluation. We will follow along. No surgical intervention required at this time. History of Present Illness Reason for Consultation: SBO vs ileus Requesting Physician: Sahil Beckwith MD Attending Physician: Sahil Beckwith MD History of Present Illness Ray is a 71 year-old male with past medical history significant for multiple myeloma status post HSCT on chemotherapy and acyclovir suppression treatment, CAD, paroxysmal A. fib, history of PE/DVT status post IVC filter and on Eliquis, hyperlipidemia, mood disorder, renal oncocytoma is status post nephrectomy, history of necrotic colon and s/p right hemicolectomy with ileostomy and reversal in 2012 who presented to emergency department due to cough, generalized weakness, fever, and hemoptysis. He was admitted to [facility] in November for COVID 19 infection and developed an ileus vs partial SBO at that time which self resolved. He has a chronic right mid/lower abdominal hernia. All of his prior abdominal surgeries were at [facility]. Our services consulted due to nausea, vomiting, abdominal distention and possible PSBO on KUB obtained today. Ray states that he is having some abdominal pain and bloating. Nausea slightly improving. Able to pass gas. Allergies Allergy/AdvReac Type Severity Reaction Status Date / Time doxycycline Allergy Diarrhea Verified 12/11/21 00:42 latex Allergy Rash Verified 12/11/21 00:42 Home Medications Medication Instructions Recorded Confirmed Type Acetaminophen Extra Strength 1 tab Q4 PRN Pain 12/11/21 04/02/22 History Lactobacillus acidophilus 1 tab DAILY 12/11/21 04/02/22 History acyclovir 800 mg tablet 800 mg BID 12/11/21 04/02/22 History apixaban 5 mg tablet (Eliquis) 5 mg BID 12/11/21 04/02/22 History cholecalciferol (vitamin D3) 2,000 units PO DAILY 12/11/21 04/02/22 History dulaglutide 3 mg/0.5 mL 3 mg subcut WK 12/11/21 04/02/22 History subcutaneous pen injector (Trulicity) duloxetine 60 mg capsule,delayed 60 mg PO BID 12/11/21 04/02/22 History release fenofibrate nanocrystallized 48 mg 48 mg PO DAILY 12/11/21 04/02/22 History tablet ferrous gluconate 324 mg (38 mg 325 mg DAILY 12/11/21 04/02/22 History iron) tablet insulin glargine 100 unit/mL (3 76 unit subcut DAILY 12/11/21 04/02/22 History mL) subcutaneous pen (Lantus Solostar U-100 Insulin) losartan 25 mg tablet 50 mg PO DAILY 12/11/21 04/02/22 History magnesium oxide 400 mg DAILY 12/11/21 04/02/22 History metoprolol succinate 50 mg 50 mg PO DAILY 12/11/21 04/02/22 History tablet,extended release 24 hr multivitamin 1 tab DAILY 12/11/21 04/02/22 History omeprazole 40 mg capsule,delayed 40 mg DAILY 12/11/21 04/02/22 History release rosuvastatin 40 mg tablet 40 mg DAILY 12/11/21 04/02/22 History sertraline 200 mg capsule 200 mg PO DAILY 12/11/21 04/02/22 History simethicone 125 mg PO DAILY 12/11/21 04/02/22 History trazodone 100 mg tablet 100 mg HS 12/11/21 04/02/22 History cefdinir 300 mg capsule 300 mg PO BID 5 days #10 caps 04/05/22 Rx Patient History Medical History (Updated 04/04/22 @ 15:28 by Sahil Beckwith MD) Anemia COVID-19 Fever Hypomagnesemia Multiple myeloma Multiple myeloma Neutropenia Sepsis Surgical History (Updated 04/04/22 @ 12:32 by Isaura Shahid PA-C) H/O partial nephrectomy Right partial nephrectomy 2012 History of cholecystectomy History of ileostomy History of reversal of ileostomy History of right hemicolectomy History of right nephrectomy Social History Smoking Status: Never smoker Second Hand Exposure: No; Hx Alcohol Use: No Hx Substance Use: No Preferred Language: [place]ese Communication Ability: Effective Manager Landscape Required: No Beliefs That Will Affect Care: None marital status: Single Current Living Situation: Alone Other Information That Helps Us Care for You: No Feels Safe at Home: Yes Safety Concerns: Feels Safe At This Time Assistive Devices: None Review of Systems Review of Systems: All systems reviewed & are unremarkable except as noted in HPI & below Physical Exam Constitutional: WD/WN, vitals as above + obese; no acute distress and not ill appearing Neck: normal visual inspection and trachea midline Respiratory: normal respiratory effort, lungs clear to auscultation no lab ored breathing, no retractions and no cough Cardiovascular: RRR, no murmur, no edema Gastrointestinal (Abdomen): Inspection/Auscultation: + abdomen distended, + abdominal surgical scar (midline laparotomy, RLQ incision) and + hypoactive bowel sounds; + abnormal bowel sounds Percussion/Palpation: + abdomen tender, abdomen soft and + hernia (Right midline hernia, reducible on exam); no guarding and abdomen not rigid Skin: no rashes, warm and dry Psychiatric: A+Ox3, euthymic affect Results & Data ([facility]) Vital Signs (Past 12 Hours) Vital Signs Temp Pulse Pulse Resp BP BP Pulse Ox 04/04/22 08:00 110 H 04/04/22 07:00 36.7 C 96 H 19 124/73 92 04/04/22 02:55 36.6 C 86 20 121/85 96 O2 Del Method 04/04/22 08:00 04/04/22 07:00 Room Air 04/04/22 02:55 Room Air Laboratory Results 04/04/22 04/04/22 04/04/22 Range/Units 11:15 07:05 06:54 WBC (4.8-10.8) K/ul RBC (4.63-6.08) M/uL Hgb (14.0-18.0) g/dl Hct (40.1-51.0) % MCV (80.0-100.0) fL MCH (25.0-34.0) pg MCHC (32.0-36.0) g/dL RDW Std Deviation (36.4-46.3) fL RDW Coeff of Zohra (11.5-14.5) % Plt Count (130-400) K/uL MPV (9.4-12.4) fL Immature Gran % (Auto) % Neut % (Auto) % Lymph % (Auto) % [place] % (Auto) % Eos % (Auto) % Baso % (Auto) % Neut # (Auto) (1.4-6.5) K/uL Lymph # (Auto) (1.2-3.4) K/uL [place] # (Auto) (0.24-0.82) K/uL Eos # (Auto) (0-0.50) K/uL Baso # (Auto) (0-0.2) K/uL Immature Gran # (Auto) (0.00-0.02) K/uL Polychromasia Tear Drop Cells Echinocytes Sodium 138 (136-145) mmol/L Potassium 3.2 L (3.5-5.1) mmol/L Chloride 106 (98-107) mmol/L Carbon Dioxide 19 L (21-32) mmol/L Anion Gap 13 H (3-11) BUN 28 H (6-23) mg/dl Creatinine 1.95 H D (0.6-1.4) mg/dl Est Cr Clr Drug Dosing 43.7 ml/min Est GFR ( Amer) 39.0 ml/min Est GFR (Non-Af Amer) 33.6 ml/min BUN/Creatinine Ratio 14.4 (10-20) Glucose 213 H (70-99(Fasting)) mg/dl POC Glucose 189 H 206 H (70-99) mg/dl Estimat Average Glucose mg/dl Hemoglobin A1c (4.5-5.6) % Calcium 8.1 L (8.5-10.1) mg/dl 04/04/22 04/03/22 04/03/22 Range/Units 06:54 20:19 16:24 WBC 4.05 L (4.8-10.8) K/ul RBC 3.65 L (4.63-6.08) M/uL Hgb 10.4 L (14.0-18.0) g/dl Hct 32.1 L (40.1-51.0) % MCV 87.9 (80.0-100.0) fL MCH 28.5 (25.0-34.0) pg MCHC 32.4 (32.0-36.0) g/dL RDW Std Deviation 54.8 H (36.4-46.3) fL RDW Coeff of Zohra 16.8 H (11.5-14.5) % Plt Count 81 L (130-400) K/uL MPV 12.9 H (9.4-12.4) fL Immature Gran % (Auto) 1.0 % Neut % (Auto) 75.1 % Lymph % (Auto) 17.5 % [place] % (Auto) 5.7 % Eos % (Auto) 0.2 % Baso % (Auto) 0.5 % Neut # (Auto) 3.04 (1.4-6.5) K/uL Lymph # (Auto) 0.71 L (1.2-3.4) K/uL [place] # (Auto) 0.23 L (0.24-0.82) K/uL Eos # (Auto) 0.01 (0-0.50) K/uL Baso # (Auto) 0.02 (0-0.2) K/uL Immature Gran # (Auto) 0.04 H (0.00-0.02) K/uL Polychromasia 1+ Tear Drop Cells 1+ Echinocytes 1+ Sodium (136-145) mmol/L Potassium (3.5-5.1) mmol/L Chloride (98-107) mmol/L Carbon Dioxide (21-32) mmol/L Anion Gap (3-11) BUN (6-23) mg/dl Creatinine (0.6-1.4) mg/dl Est Cr Clr Drug Dosing ml/min Est GFR ( Amer) ml/min Est GFR (Non-Af Amer) ml/min BUN/Creatinine Ratio (10-20) Glucose (70-99(Fasting)) mg/dl POC Glucose 191 H 177 H (70-99) mg/dl Estimat Average Glucose mg/dl Hemoglobin A1c (4.5-5.6) % Calcium (8.5-10.1) mg/dl 04/03/22 Range/Units 05:50 WBC (4.8-10.8) K/ul RBC (4.63-6.08) M/uL Hgb (14.0-18.0) g/dl Hct (40.1-51.0) % MCV (80.0-100.0) fL MCH (25.0-34.0) pg MCHC (32.0-36.0) g/dL RDW Std Deviation (36.4-46.3) fL RDW Coeff of Zohra (11.5-14.5) % Plt Count (130-400) K/uL MPV (9.4-12.4) fL Immature Gran % (Auto) % Neut % (Auto) % Lymph % (Auto) % [place] % (Auto) % Eos % (Auto) % Baso % (Auto) % Neut # (Auto) (1.4-6.5) K/uL Lymph # (Auto) (1.2-3.4) K/uL [place] # (Auto) (0.24-0.82) K/uL Eos # (Auto) (0-0.50) K/uL Baso # (Auto) (0-0.2) K/uL Immature Gran # (Auto) (0.00-0.02) K/uL Polychromasia Tear Drop Cells Echinocytes Sodium (136-145) mmol/L Potassium (3.5-5.1) mmol/L Chloride (98-107) mmol/L Carbon Dioxide (21-32) mmol/L Anion Gap (3-11) BUN (6-23) mg/dl Creatinine (0.6-1.4) mg/dl Est Cr Clr Drug Dosing ml/min Est GFR ( Amer) ml/min Est GFR (Non-Af Amer) ml/min BUN/Creatinine Ratio (10-20) Glucose (70-99(Fasting)) mg/dl POC Glucose (70-99) mg/dl Estimat Average Glucose 197 mg/dl Hemoglobin A1c 8.5 H (4.5-5.6) % Calcium (8.5-10.1) mg/dl Diagnostic Findings KUB 04/04/2022 HISTORY: Nausea. Vomiting. COMPARISON: KUB 12/14/2021. FINDINGS: Dilated gas-filled loops of large and small bowel are again seen throughout the abdomen. The small bowel measures up to 5.9 cm in diameter. This is similar to the prior study. Prior cholecystectomy. No renal calculi. No ureteral calculi. Calcifications in the deep pelvis likely represent phl eboliths. No pneumoperitoneum or pneumatosis. IMPRESSION: Dilated gas-filled loops of large and small bowel are again seen throughout the abdomen which is similar to the prior study. This could represent an ileus or partial small bowel obstruction. CT SCAN OF THE ABDOMEN AND PELVIS WITHOUT IV CONTRAST (DURING LAST ADMISSION 11/2021) CLINICAL HISTORY: Generalized abdominal pain. Nausea and vomiting. COMPARISON STUDY: Abdominal CT dated 12/10/2021. TECHNIQUE: CT scan of the abdomen and pelvis is performed from the lung bases to the proximal femora. Images are reviewed in the axial, sagittal, and coronal planes. IV contrast was not administered for this examination. Note that the examination was performed in suboptimal fashion without oral and IV contrast. A dose lowering technique was utilized adhering to the principles of ALARA. CT DOSE: 1423.75 mGy.cm FINDINGS: Lung bases: The heart is normal in size and without pericardial effusion. The coronary arteries are densely calcified. Patchy groundglass consolidation is again seen at both lung bases. There are scattered calcified granulomas. No pleural effusion is seen. Liver: The unenhanced liver is enlarged, measuring 19.9 cm in length. The liver demonstrates diffusely diminished attenuation indicating steatosis. There is no intrahepatic biliary ductal dilatation. Gallbladder: Surgically absent noting clips in the gallbladder fossa. Spleen: Normal in size and attenuation. Pancreas: The unenhanced pancreas is moderately atrophic and grossly unremarkable. Adrenal glands: Unremarkable. Kidneys: The right kidney is surgically absent. The unenhanced left kidney is normal in size and without hydronephrosis. There are no left renal calculi identified. An indeterminant 13 mm hypodensity is again seen arising from the lower pole of left kidney. Abdominal vasculature: The abdominal aorta is normal in course and caliber noting advanced atherosclerotic calcification. Bowel: There is postoperative change from right hemicolectomy with ileocolic anastomosis. The appendix is surgically absent. There is laxity of the ventral abdominal wall with diastases of the rectus musculature. There is a small bowel containing hernia in the right ventral abdomen seen on image #256 and a small bowel containing hernia in the lateral right lower quadrant abdominal wall seen on image #289. There is diffuse gaseous distention of the small bowel and the right colon. Proximal small bowel loops measure up to 5.8 cm diameter. The loop of small bowel exiting the lateral right lower quadrant hernia appears d ecompressed (axial image #333); however, the more distal small bowel loops are distended. There is no pneumatosis intestinalis or portal venous gas. No thick walled small bowel loops are identified. The left colon is relatively decompressed with no significant transition point identified. Peritoneum: There is no intraperitoneal free air or abdominal ascites. Lymphadenopathy: None. Pelvic viscera: The prostate gland is diminutive and heterogeneous. The bladder is normal as visualized. There are bilateral fat-containing inguinal hernias. Skeletal structures: The skeletal structures are heterogeneously osteopenic. There is moderate lumbosacral spondylosis. No lytic or blastic lesions are seen. Healed left-sided rib fractures are noted. IMPRESSION: 1. There is diffuse gaseous distention of the small bowel and right colon, and the degree of distention has increased as compared to 12/10/2021. 2. There is postoperative change from right hemicolectomy with ileocolic anastomosis, and 2 small bowel containing hernias are identified as detailed above. 3. The loop of small bowel exiting the lateral right lower quadrant hernia is decompressed; however, the more distal small bowel is distended. The appearance favors ileus, with a small bowel obstruction considered less likely. Clinical correlation will be required. 4. No intraperitoneal free air is seen. No thick walled bowel loops are identified and there is no pneumatosis intestinalis or portal venous gas. 5. Patchy groundglass opacities are again seen at both lung bases and favor an infectious/inflammatory pneumonitis. 6. Hepatomegaly and hepatic steatosis. 7. An indeterminant left renal lesion is again unchanged. Nonemergent/outpatient follow-up with a dedicated renal protocol CT or MRI is recommended. 8. Additional findings as above.
--- NOTE | 2022-04-04 13:17 | Pharmacy Report ---
Pharmacy Glycemic Short Note 2 - Date of Service April 04, 2022 - Glycemic Short BSG Results (Last 24 hours): 04/03/22 04/03/22 04/04/22 16:24 20:19 06:54 Glucose 213 H POC Glucose 177 H 191 H 04/04/22 04/04/22 07:05 11:15 Glucose POC Glucose 206 H 189 H OUTPATIENT ANTIDIABETIC REGIMEN: * Lantus 60 units daily * HbA1C = 8.3% (11/2021) ASSESSMENT: 04/04/22: * BSGs elevated yesterday with fasting BSG of 206 mg/dL this morning * Concern for partial small bowel obstruction - patient made NPO * Will use scaled Lantus today to potentially provide increased dose of Lantus this evening if needed 04/03/22: * Mr Frank is a 71 y/o M with a PMH of T2DM on insulin who presents with lower lobe pneumonia. * When patient was admitted in November 2021, patient tolerated Lantus 10 units daily with Novolog CF 25 CR 15. Patient's blood sugars were adequately controlled albeit above goal. Patient was on dexamethasone 6 mg IV daily. * In general, fastings were above goal on lantus 10 units daily. Currently fasting is 162 mg/dL. Will start with Lantus 20 units daily and trend Lantus. * For Novolog, will use weight-based stress of 2 dosing (which is slightly tighter than previous admission) PLAN FOR INPATIENT GLYCEMIC CONTROL: * Basal insulin * Lantus 20 units SQ qAM * Lantus 0-20 units SC HS * Bolus insulin * NovoLog per scale ACHS or Q6hrs while NPO * Goal Range: Low 110 mg/dL - High 140 mg/dL * Correction Factor: 20 mg/dL/unit * Nutritional / Prandial insulin per carb ratio of 1 unit per 7 grams CHO consumed
[2022-04-04] MEDS ORDERED: OPTIRAY 350 100ml IV ONE (13:31)
--- NOTE | 2022-04-04 13:57 | CT Scan Report ---
CT SCAN OF THE ABDOMEN AND PELVIS WITH IV CONTRAST CLINICAL HISTORY: Generalized abdominal pain. Nausea and vomiting. COMPARISON STUDY: Abdominal CT dated 12/14/2021. TECHNIQUE: Following the IV administration of 94 cc of Optiray 350, CT scan of the abdomen and pelvis is performed from the lung bases to the proximal femora. Images are reviewed in the axial, sagittal, and coronal planes. IV contrast was administered without complication. Note that the examination was performed in suboptimal fashion without oral and IV contrast. A dose lowering technique was utilized adhering to the principles of ALARA. CT DOSE: 1479.82 mGy.cm FINDINGS: Lung bases: The heart is normal in size and without pericardial effusion. The coronary arteries are d ensely calcified. There is dense left basilar consolidation. Milder patchy groundglass consolidation is seen at both lung bases. No pleural effusion is identified. There are scattered calcified granulom as. Liver: The contrast-enhanced liver is enlarged, measuring 21 cm in length. The liver demonstrates dif fusely diminished attenuation indicating steatosis. There is no intrahepatic biliary ductal dilatatio n. The hepatic veins and portal veins are patent. Gallbladder: Surgically absent noting clips in the gallbladder fossa. Spleen: Normal in size and attenuation. Pancreas: The pancreas is moderately atrophic and grossly unremarkable. Adrenal glands: Unremarkable. Kidneys: The right kidney is surgically absent. The contrast-enhanced left kidney is normal in size a nd without hydronephrosis. The left kidney enhances homogeneously. An indeterminant 14 mm enhancing l esion is seen in the lower pole of left kidney on image #256. Abdominal vasculature: The abdominal aorta is normal in course and caliber noting advanced atheroscle rotic calcification. Bowel: There is postoperative change from right hemicolectomy with ileocolic anastomosis. The appendi x is surgically absent. There is laxity of the ventral abdominal wall with diastases of the rectus m usculature. There is a small bowel containing hernia in the right ventral abdomen seen on image #281 and a small bowel containing hernia in the lateral right lower quadrant abdominal wall seen on image #293. There is diffuse distention of the small bowel and the right colon. Proximal small bowel loops measure up to 5.5 cm diameter. The loop of small bowel exiting the lateral right lower quadrant herni a is focal decompressed (axial image #350); however, the more distal small bowel loops are distended with gas and fluid. There is no pneumatosis intestinalis or portal venous gas. No thick walled small bowel loops are identified. The distal colon is normal in caliber. Peritoneum: There is no intraperitoneal free air or abdominal ascites. There is a fat-containing umbi lical hernia. Lymphadenopathy: None. Pelvic viscera: The prostate gland is diminutive and heterogeneous. The bladder is decompressed and g rossly unremarkable. There are bilateral fat-containing inguinal hernias. Skeletal structures: The skeletal structures are heterogeneously osteopenic. There is moderate lumbos acral spondylosis. No lytic or blastic lesions are seen. Healed left-sided rib fractures are noted. IMPRESSION: 1. There is diffuse distention of the small bowel and right colon, similar in appearance to 12/14/2021 . 2. There is postoperative change from right hemicolectomy with ileocolic anastomosis, and 2 small bow el containing hernias are unchanged. 3. The loop of small bowel exiting the lateral right lower quadrant hernia is focally decompressed; h owever, the more distal small bowel is distended as is the left colon. Again, this is similar in appe arance to 12/14/2021. The appearance favors ileus, with a low-grade/developing small bowel obstruction considered less likely but not excluded. Clinical correlation will be essential. 4. No intraperitoneal free air is seen. No thick walled bowel loops are identified and there is no pn eumatosis intestinalis or portal venous gas. 5. There is dense left basilar consolidation, with milder patchy groundglass consolidation in the rig ht lower lung. The appearance favors an infectious/inflammatory pneumonitis and clinical correlation will be required. 6. Hepatomegaly and hepatic steatosis. 7. A 14 mm left renal lesion shows contrast enhancement when compared to 12/14/2021. A renal neoplasm is the diagnosis of exclusion and follow up with urology is recommended. 8. Additional findings as above. ACT 112: Negative or not required by law. Electronically signed by: Kirk Lopez M.D. 04/04/2022 1:55 PM
--- NOTE | 2022-04-04 15:16 | Hospitalist Progress Note ---
Date of Service April 04, 2022 Assessment & Plan (1) Left lower lobe pneumonia: Plan: Presents with fever, chills, cough with hemoptysis Immunocompromise state secondary to multiple myeloma on chemotherapy. Pro-Reyes elevated Chest x-ray unremarkable CT angio chest shows consolidation of left lower lobe Sputum gram stainmoderate WBC with few gram-positive cocci, few gram-negative bacilli. Hemoglobin stable Sputum culture shows normal manish Plan; -Improvement noted in cough and hemoptysis. He completed 3 days of azithromycin. Currently on cefepime. Will continue total duration of antibiotic for 7 days. (2) Ileus: Plan: On 04/04; patient developed vomiting. He does not have abdominal pain or constipation. Bowel movements are normal. CT abdomen and pelvis done; findings are similar to his CT abdomen from 11/2021. Surgery on board; continue conservative management. Will advance diet as tolerated. (3) Multiple myeloma: Plan: status post autologous stem cell transplantation in [place] in 08/2019. He is currently on Revlimid 3 weeks on, 1 week off. He started the cycle about 3 days ago Hold the medication for now; On acyclovir p.o. twice daily for suppressive therapy. (4) DVT (deep venous thrombosis): Plan: CT angio chest showed old PE in left lower lobe. On Eliquis at home. Resume Eliquis as hemoptysis is improving. (5) Paroxysmal A-fib: Plan: On metoprolol, Eliquis on hold. (6) Type 2 diabetes mellitus: Plan: Takes 100 unit of Basaglar monday to Monday when he takes dexamethasone weekly on Monday. ACH S. Lantus dose slightly decreased to 20 units twice daily as per pharmacy. Pharmacy on board (7) CKD (chronic kidney disease): Plan: History of CKD. Urinalysis showed 3+ proteinuria. Creatinine slightly up trended. Monitor daily BMP. (8) Left renal mass: Plan: CT abdomen shows finding of left renal mass measuring 14 mm Will provide outpatient urology follow-up. Plan Hyperlipidemiacontinue Lipitor Mood disordercontinue on sertraline, Cymbalta and trazodone. Hypertensioncontinue on losartan DVT Lovenox, home Eliquis on hold. DNR/DNI. DispoHome after resolution of medical issues. PT OT ordered Admission and Anticipated Discharge Date Admission Date: April 02, 2022 Subjective Patient reports that his cough and hemoptysis is better. Overnight, patient had nausea and vomiting. His last bowel movement was in the morning. He is passing gas. He denies any abdominal pain or discomfort. Patient had A. fib for 10 minutes in the morning; he spontaneously converted to sinus. He has known history of A. fib with RVR. Review of Systems Review of Systems: All systems reviewed & are unremarkable except as noted in Subjective Physical Exam Physical Exam: Constitutional: Alert, oriented x3; lying comfortably in bed. Not in any distress. Morbidly obese. Head: Normocephalic, Atraumatic Eyes: PERRL, conjunctivae normal, anicteric sclerae ENMT: external ear and nose normal, oropharynx normal Neck: trachea midline, no thyromegaly normal visual inspection Respiratory: Decreased breath sound at left lower base with few crackles. Cardiovascular: RRR, no murmur, no edema Vessels: no JVD or carotid bruit Chest: normal inspection of chest Abdomen: Soft, nontender. Bowel sound present. Musculoskeletal: no cyanosis or clubbing, extremities motor strength 5/5 Skin: no rashes, warm and dry normal turgor Neurologic: PERRL, EOMI, accommodation nl, no face palsy, no dysarthria CN's II- XI intact bilaterally and moves all extremities Psychiatric: A+Ox3, euthymic affect Lymphatic: no cervical or axillary lymphadenopathy : deferred Results & Data Results & Data ([facility]) Vital Signs (Past 12 Hours) Vital Signs Temp Pulse Pulse Resp BP Pulse Ox O2 Del Method 04/04/22 11:01 36.8 C 101 H 19 160/90 H 94 Room Air 04/04/22 08:00 110 H 04/04/22 07:00 36.7 C 96 H 19 124/73 92 Room Air Laboratory Results Laboratory Results WBC 4.05 K/ul (4.8-10.8) L 04/04/22 06:54 RBC 3.65 M/uL (4.63-6.08) L 04/04/22 06:54 Hgb 10.4 g/dl (14.0-18.0) L 04/04/22 06:54 Hct 32.1 % (40.1-51.0) L 04/04/22 06:54 MCV 87.9 fL (80.0-100.0) 04/04/22 06:54 MCH 28.5 pg (25.0-34.0) 04/04/22 06:54 MCHC 32.4 g/dL (32.0-36.0) 04/04/22 06:54 RDW Std Deviation 54.8 fL (36.4-46.3) H 04/04/22 06:54 RDW Coeff of Zohra 16.8 % (11.5-14.5) H 04/04/22 06:54 Plt Count 81 K/uL (130-400) L 04/04/22 06:54 MPV 12.9 fL (9.4-12.4) H 04/04/22 06:54 Immature Gran % (Auto) 1.0 % 04/04/22 06:54 Neut % (Auto) 75.1 % 04/04/22 06:54 Lymph % (Auto) 17.5 % 04/04/22 06:54 [place] % (Auto) 5.7 % 04/04/22 06:54 Eos % (Auto) 0.2 % 04/04/22 06:54 Baso % (Auto) 0.5 % 04/04/22 06:54 Neut # (Auto) 3.04 K/uL (1.4-6.5) 04/04/22 06:54 Lymph # (Auto) 0.71 K/uL (1.2-3.4) L 04/04/22 06:54 [place] # (Auto) 0.23 K/uL (0.24-0.82) L 04/04/22 06:54 Eos # (Auto) 0.01 K/uL (0-0.50) 04/04/22 06:54 Baso # (Auto) 0.02 K/uL (0-0.2) 04/04/22 06:54 Immature Gran # (Auto) 0.04 K/uL (0.00-0.02) H 04/04/22 06:54 Toxic Granulation 1+ 04/03/22 05:50 Toxic Vacuolation 1+ 04/02/22 10:15 Dohle Bodies 1+ 04/03/22 05:50 Polychromasia 1+ 04/04/22 06:54 Tear Drop Cells 1+ 04/04/22 06:54 Echinocytes 1+ 04/04/22 06:54 Sodium 138 mmol/L (136-145) 04/04/22 06:54 Potassium 3.2 mmol/L (3.5-5.1) L 04/04/22 06:54 Chloride 106 mmol/L (98-107) 04/04/22 06:54 Carbon Dioxide 19 mmol/L (21-32) L 04/04/22 06:54 Anion Gap 13 (3-11) H 04/04/22 06:54 BUN 28 mg/dl (6-23) H 04/04/22 06:54 Creatinine 1.95 mg/dl (0.6-1.4) H D 04/04/22 06:54 Est Cr Clr Drug Dosing 43.7 ml/min 04/04/22 06:54 Est GFR ( Amer) 39.0 ml/min 04/04/22 06:54 Est GFR (Non-Af Amer) 33.6 ml/min 04/04/22 06:54 BUN/Creatinine Ratio 14.4 (10-20) 04/04/22 06:54 Glucose 213 mg/dl (70-99(Fasting)) H 04/04/22 06:54 POC Glucose 189 mg/dl (70-99) H 04/04/22 11:15 Estimat Average Glucose 197 mg/dl 04/03/22 05:50 Hemoglobin A1c 8.5 % (4.5-5.6) H 04/03/22 05:50 Lactate 1.6 mmol/L (0.4-2.0) 04/02/22 12:35 Calcium 8.1 mg/dl (8.5-10.1) L 04/04/22 06:54 Magnesium 1.7 mg/dl (1.7-2.4) 04/02/22 10:15 Total Bilirubin 0.6 mg/dl (0.2-1.0) 04/02/22 10:15 Direct Bilirubin 0.1 mg/dl (0-0.2) 04/02/22 10:15 AST 14 U/L (13-39) 04/02/22 10:15 ALT 20 U/L (7-52) 04/02/22 10:15 Alkaline Phosphatase 30 U/L (34-104) L 04/02/22 10:15 Troponin I High Sens 28.4 pg/ml (0-20) H 04/02/22 10:15 Total Protein 6.5 gm/dl (6.0-8.3) 04/02/22 10:15 Albumin 3.4 gm/dl (3.4-5.0) 04/02/22 10:15 Procalcitonin 13.57 ng/ml (0-0.5) H 04/02/22 10:15 Urine Color Yellow 04/02/22 12:20 Urine Appearance Clear (Clear) 04/02/22 12:20 Urine pH 7.5 (4.5-7.5) 04/02/22 12:20 Ur Specific [place] 1.018 (1.000-1.030) 04/02/22 12:20 Urine Protein 3+ (Negative) H 04/02/22 12:20 Urine Glucose (UA) Negative (Negative) 04/02/22 12:20 Urine Ketones Negative (Negative) 04/02/22 12:20 Urine Blood Negative (Negative) 04/02/22 12:20 Urine Nitrite Negative (Negative) 04/02/22 12:20 Urine Bilirubin Negative (Negative) 04/02/22 12:20 Urine Urobilinogen Negative (Negative) 04/02/22 12:20 Ur Leukocyte Esterase Negative (Negative) 04/02/22 12:20 Urine WBC (Auto) 1-5 /hpf (0-5) 04/02/22 12:20 Urine RBC (Auto) 0-4 /hpf (0-4) 04/02/22 12:20 U Hyaline Cast (Auto) 0 /lpf (0-5) 04/02/22 12:20 U Epithel Cells (Auto) 20-30 /lpf (0-5) H 04/02/22 12:20 Urine Bacteria (Auto) Negative (Negative) 04/02/22 12:20 Nasal Screen MRSA (PCR) Negative (Negative) 04/02/22 16:12 SARS-CoV-2 (PCR) NEGATIVE (Negative) 04/02/22 12:15 Influenza Type A (PCR) Negative (Neg) 04/02/22 12:15 Influenza Type B (PCR) Negative (Neg) 04/02/22 12:15 RSV (RT-PCR) Negative (Neg) 04/02/22 12:[address] 04/02/22 11:[address] DOSE: 1112.04 mGy.cm HISTORY: fall TECHNIQUE: Multiaxial CT images of the cervical spine were performed and reformatted in the sagittal and coronal plane without the use of contrast. A dose lowering technique was utilized adhering to the principles of ALARA. COMPARISON: None. FINDINGS: No fractures. No subluxation. Prevertebral soft tissues and the C1-C2 interval are intact. No pneumothorax. Mild to moderate disc space narrowing throughout the cervical spine most pronounced at the C3-C4 level which demonstrates mild central canal narrowing. IMPRESSION: No fractures within the cervical spine. ACT 112: Negative or not required by law. Electronically signed by: Ashwin Maxwell M.D. 04/02/2022 12:29 PM Chest X-Ray 04/02/22 11:37 XR chest 1V portable HISTORY: Sepsis COMPARISON: Chest 12/13/2021. FINDINGS: No pneumothorax. No pleural effusions. No evidence for pulmonary edema. The cardiac silhouette remains borderline enlarged. Questionable left basilar density is likely due to overlapping soft tissue. Otherwise, no focal lung consolidations to suggest a pneumonia. IMPRESSION: No acute process. ACT 112: Negative or not required by law. Electronically signed by: Ashwin Maxwell M.D. 04/02/2022 12:[address] 04/02/22 11:[address] DOSE: HISTORY: Headache. Fall. TECHNIQUE: Multiaxial CT images of the head were performed without the use of intravenous contrast. Automated exposure control was utilized for this study. A dose lowering technique was utilized adhering to the principles of ALARA. Comparison: None. Findings: The paranasal sinuses and mastoid air cells are clear. The calvarium and skull base are intact. The ventricles and sulci are within normal limits. There is no mass, hematoma, midline shift, or acute infarct. Impression: No acute intracranial abnormality. ACT 112: Negative or not required by law. Electronically signed by: Ashwin Maxwell M.D. 04/02/2022 12:25 PM Chest CTA 04/02/22 13:08 CHEST CTA for PULMONARY ARTERIES CT DOSE: 911.26 mGy.cm HISTORY: coughing up blood TECHNIQUE: Multiaxial CT images of the chest were performed following the intravenous administration of contrast to evaluate the pulmonary arteries. Maximal intensity projection images were also obtained. A dose lowering technique was utilized adhering to the principles of ALARA. COMPARISON STUDY: Abdomen and pelvis CT 12/06/2021. FINDINGS: The visualized liver and spleen are unremarkable. Normal esophagus. The thyroid gland enhances normally. The heart is borderline enlarged. No pericardial effusion. Trace left pleural effusion. No mediastinal or hilar lymphadenopathy. Moderate calcified plaque within the coronary arteries. No acute fractures identified. Old, healed sternal fracture and a few old, healed bilateral anterior rib fractures. Dense consolidation with air bronchograms involving the majority of the left lower lobe. This likely represents a pneumonia. There are scattered calcifications also seen within the left lower lobe. No pneumothorax. The central airways are patent. There is a 6 mm nodule within the right lower lobe on image 104. Normal caliber thoracic aorta with no evidence for dissection. There is a weblike filling defect and a calcified filling defects seen within the left lower lobe segmental pulmonary arteries. This is consistent with a chronic pulmonary embolus. The left lower lobe subsegmental pulmonary arteries or not well assessed due to the dense consolidation but are likely patent. The remaining pulmonary arteries show no filling defects to suggest acute pulmonary embolus. IMPRESSION: 1. Nonocclusive weblike filling defects and an intraluminal calcified filling defect within the left lower lobe segmental pulmonary arteries. These likely re present chronic pulmonary emboli. Otherwise, no evidence for an acute pulmonary embolus. 2. Dense consolidation within the left lower lobe with associated air bronchograms. This favors a pneumonia. Recommend 2-[address] follow-up to ensure resolution. 3. Trace left pleural effusion. 4. A 6 mm indeterminate pulmonary nodule in the right lower lobe. This could be reassessed on follow-up chest CT. ACT 112: Negative or not required by law. Electronically signed by: Ashwin Maxwell M.D. 04/02/2022 2:03 PM KUB X-Ray 04/04/22 05:52 KUB HISTORY: Nausea. Vomiting. COMPARISON: KUB 12/14/2021. FINDINGS: Dilated gas-filled loops of large and small bowel are again seen throughout the abdomen. The small bowel measures up to 5.9 cm in diameter. This is similar to the prior study. Prior cholecystectomy. No renal calculi. No ureteral calculi. Calcifications in the deep pelvis likely represent phleboliths. No pneumoperitoneum or pneumatosis. IMPRESSION: Dilated gas-filled loops of large and small bowel are again seen throughout the abdomen which is similar to the prior study. This could represent an ileus or partial small bowel obstruction. ACT 112: Negative or not required by law. Electronically signed by: Ashwin Maxwell M.D. 04/04/2022 8:51 AM Abdomen/Pelvis CT 04/04/22 11:53 CT SCAN OF THE ABDOMEN AND PELVIS WITH IV CONTRAST CLINICAL HISTORY: Generalized abdominal pain. Nausea and vomiting. COMPARISON STUDY: Abdominal CT dated 12/14/2021. TECHNIQUE: Following the IV administration of 94 cc of Optiray 350, CT scan of the abdomen and pelvis is performed from the lung bases to the proximal femora. Images are reviewed in the axial, sagittal, and coronal planes. IV contrast was administered without complication. Note that the examination was performed in suboptimal fashion without oral and IV contrast. A dose lowering technique was utilized adhering to the principles of ALARA. CT DOSE: 1479.82 mGy.cm FINDINGS: Lung bases: The heart is normal in size and without pericardial effusion. The coronary arteries are densely calcified. There is dense left basilar consolid ation. Milder patchy groundglass consolidation is seen at both lung bases. No pleural effusion is identified. There are scattered calcified granulomas. Liver: The contrast-enhanced liver is enlarged, measuring 21 cm in length. The liver demonstrates diffusely diminished attenuation indicating steatosis. There is no intrahepatic biliary ductal dilatation. The hepatic veins and portal veins are patent. Gallbladder: Surgically absent noting clips in the gallbladder fossa. Spleen: Normal in size and attenuation. Pancreas: The pancreas is moderately atrophic and grossly unremarkable. Adrenal glands: Unremarkable. Kidneys: The right kidney is surgically absent. The contrast-enhanced left kidney is normal in size and without hydronephrosis. The left kidney enhances homogeneously. An indeterminant 14 mm enhancing lesion is seen in the lower pole of left kidney on image #256. Abdominal vasculature: The abdominal aorta is normal in course and caliber noting advanced atherosclerotic calcification. Bowel: There is postoperative change from right hemicolectomy with ileocolic anastomosis. The appendix is surgically absent. There is laxity of the ventral abdominal wall with diastases of the rectus musculature. There is a small bowel containing hernia in the right ventral abdomen seen on image #281 and a small bowel containing hernia in the lateral right lower quadrant abdominal wall seen on image #293. There is diffuse distention of the small bowel and the right colon. Proximal small bowel loops measure up to 5.5 cm diameter. The loop of small bowel exiting the lateral right lower quadrant hernia is focal decompressed (axial image #350); however, the more distal small bowel loops are distended with gas and fluid. There is no pneumatosis intestinalis or portal venous gas. No thick walled small bowel loops are identified. The distal colon is normal in caliber. Peritoneum: There is no intraperitoneal free air or abdominal ascites. There is a fat-containing umbilical hernia. Lymphadenopathy: None. Pelvic viscera: The prostate gland is diminutive and heterogeneous. The bladder is decompressed and grossly unremarkable. There are bilateral fat-containing inguinal hernias. Skeletal structures: The skeletal structures are heterogeneously osteopenic. There is moderate lumbosacral spondylosis. No lytic or blastic lesions are seen. Healed left-sided rib fractures are noted. IMPRESSION: 1. There is diffuse distention of the small bowel and right colon, similar in appearance to 12/14/2021. 2. There is postoperative change from right hemicolectomy with ileocolic anastomosis, and 2 small bowel containing hernias are unchanged. 3. The loop of small bowel exiting the lateral right lower quadrant hernia is focally decompressed; however, the more distal small bowel is distended as is the left colon. Again, this is similar in appearance to 12/14/2021. The appearance favors ileus, with a low-grade/developing small bowel obstruction considered less likely but not excluded. Clinical correlation will be essential. 4. No intraperitoneal free air is seen. No thick walled bowel loops are identified and there is no pneumatosis intestinalis or portal venous gas. 5. There is dense left basilar consolidation, with milder patchy groundglass consolidation in the right lower lung. The appearance favors an infectious/inflammatory pneumonitis and clinical correlation will be required. 6. Hepatomegaly and hepatic steatosis. 7. A 14 mm left renal lesion shows contrast enhancement when compared to 12/14/2021. A renal neoplasm is the diagnosis of exclusion and follow up with urology is recommended. 8. Additional findings as above. ACT 112: Negative or not required by law. Electronically signed by: Kirk Lopez M.D. 04/04/2022 1:55 PM
[2022-04-04] MEDS: traZODone HCL 100 MG TAB PO SCH (20:10)
[2022-04-05 06:43] LABS: Basophils # (auto) 0.01 K/uL (0-0.2); Basophils % (auto) 0.3 %; Eosinophils # (auto) 0.03 K/uL (0-0.50); Eosinophils % (auto) 0.9 %; Hematocrit (blood only) 33.5 % (40.1-51.0); Hemoglobin 10.7 g/dl (14.0-18.0); Immature Granulocytes # (auto) 0.02 K/uL (0.00-0.02); Immature Granulocytes % (auto) 0.6 %; Lymphocytes # (auto) 0.65 K/uL (1.2-3.4); Lymphocytes % (auto) 19.9 %; Mean Platelet Volume 12.3 fL (9.4-12.4); Monocytes # (auto) 0.22 K/uL (0.24-0.82); Monocytes % (auto) 6.7 %; Neutrophils # (auto) 2.34 K/uL (1.4-6.5); Neutrophils % (auto) 71.6 %; Platelet Count 93 K/uL (130-400); White Blood Count 3.27 K/ul (4.8-10.8)
[2022-04-05 07:07] LABS: BUN Creatinine Ratio 17.5 (10-20); Creatinine Clr Calc Pharmacy 47.7 ml/min; Est GFR (African American) 43.8 ml/min; Est GFR (Non-African American) 37.8 ml/min; Potassium 3.4 mmol/L (3.5-5.1)
[2022-04-05 07:09] LABS: Mean Corpuscular Hemoglobin 27.9 pg (25.0-34.0); Mean Corpuscular Hgb Conc 31.9 g/dL (32.0-36.0); Mean Corpuscular Volume 87.5 fL (80.0-100.0); RDW Standard Deviation 54.5 fL (36.4-46.3); Red Blood Count 3.83 M/uL (4.63-6.08)
[2022-04-05] MEDS: CEFEPIME 2,000 MG in SYRINGE 0 ML IV SCH (07:38)
[2022-04-05] MEDS: INSULIN ASPART PER UNIT SC SCH ×2 (08:14→11:53)
[2022-04-05] MEDS: PANTOprazole 40 MG TAB PO SCH (08:29)
[2022-04-05] MEDS: DULoxetine HCL 60 MG CAP PO SCH (08:29)
[2022-04-05] MEDS: MULTIVITAMIN TAB PO SCH (08:29)
[2022-04-05] MEDS: METOPROLOL SUCC 50MG EXT REL TAB PO SCH (08:29)
[2022-04-05] MEDS: FENOFIBRATE NANOCRYSTALLIZED 48 MG TABLET PO SCH (08:29)
[2022-04-05] MEDS: MAGNESIUM OXIDE 400 MG TAB PO SCH (08:29)
[2022-04-05] MEDS: ROSUVASTATIN CALCIUM 20 MG TAB PO SCH (08:29)
[2022-04-05] MEDS: APIXABAN 5 MG TABLET PO SCH (08:29)
[2022-04-05] MEDS: SIMETHICONE 80 MG CHEW PO SCH (08:30)
[2022-04-05] MEDS: ACYCLOVIR 400 MG TAB PO SCH (08:30)
[2022-04-05] MEDS: SERTRALINE HCL 100 MG TABLET PO SCH (08:30)
[2022-04-05] MEDS ORDERED: LANTUS PER UNIT CHARGE SQ SCH (09:00)
--- NOTE | 2022-04-05 10:52 | Surgery Progress Note ---
Date of Service April 05, 2022 Assessment & Plan (1) Abdominal pain: (2) Nausea and vomiting: (3) Left lower lobe pneumonia: Plan 71 year-old male admitted to hospital for left lower lobe pneumonia with cough, fever, generalized weakness and hemoptysis. KUB today for nausea and vomiting showing ileus vs psbo. He was admitted to [facility] in November 2021 for COVID and had CT scan of abd/pelvis at that time consistent with Ileus but has right ventral hernias containing small bowel. Has extensive abdominal surgical history dating back to 2012 with multiple abdominal surgeries at [facility] including right partial nephrectomy with postoperative complications leading to open cholecystectomy, nephrostomy tube for nephrocolic fistula, right total nephrectomy, right hemicolectomy with ileostomy and subsequent reversal for necrotic bowel later that year. 04/05/2022: CT scan abd/pelvis stable and similar to CT scan in November favoring ileus + return of bowel function abdominal pain and nausea resolved Plan: No surgical intervention required, CT scan with stable findings and likely has chronic ileus and exacerbated by acute respiratory illness Advance diet as tolerated our services signing off please call with questions/concerns. Dr lara has seen and examined pt, see addendum for further recommendations/plan. Admission and Anticipated Discharge Date Admission Date: April 02, 2022 Supervising Physician Co-Signing Physician Notes I have seen and examined the patient personally agree with the above assessment and plan. He is feeling much improved. He has had multiple bowel movements. We will sign off for now. Please call with any questions or concerns. Subjective feeling better today no abdominal pain, nausea and vomiting does not feel bloated today, states he feels his abdomen is back to baseline passing gas and multiple bowel movements tolerated clear liquids Physical Exam Constitutional: WD/WN, vitals as above + obese; no acute distress and not i ll appearing Neck: normal visual inspection and trachea midline Respiratory: normal respiratory effort; no respiratory distress, no labored breathing, no retractions and no cough Gastrointestinal (Abdomen): Inspection/Auscultation: + abdomen distended, + abdominal surgical scar (midine laparotomy scar and right lower quadrant scar) and + hypoactive bowel sounds; + abnormal bowel sounds Percussion/Palpation: + abdomen tender (mildly tender at RLQ hernia site, but improved compared to yesterday), abdomen soft and + hernia (Right ventral hernia, reducible); no guarding and abdomen not rigid Skin: no rashes, warm and dry Psychiatric: Orientation: alert and oriented x 3 Results & Data ([facility]) Vital Signs (Past 12 Hours) Vital Signs Temp Pulse Pulse Resp BP Pulse Ox O2 Del Method 04/05/22 08:00 85 04/05/22 06:58 36.7 C 87 18 128/76 95 Room Air 04/05/22 04:03 36.8 C 84 18 126/76 93 Room Air Laboratory Results 04/05/22 04/05/22 04/05/22 Range/Units 07:31 06:09 06:09 WBC 3.27 L (4.8-10.8) K/ul RBC 3.83 L (4.63-6.08) M/uL Hgb 10.7 L (14.0-18.0) g/dl Hct 33.5 L (40.1-51.0) % MCV 87.5 (80.0-100.0) fL MCH 27.9 (25.0-34.0) pg MCHC 31.9 L (32.0-36.0) g/dL RDW Std Deviation 54.5 H (36.4-46.3) fL RDW Coeff of Zohra 17.0 H (11.5-14.5) % Plt Count 93 L (130-400) K/uL MPV 12.3 (9.4-12.4) fL Immature Gran % (Auto) 0.6 % Neut % (Auto) 71.6 % Lymph % (Auto) 19.9 % [place] % (Auto) 6.7 % Eos % (Auto) 0.9 % Baso % (Auto) 0.3 % Neut # (Auto) 2.34 (1.4-6.5) K/uL Lymph # (Auto) 0.65 L (1.2-3.4) K/uL [place] # (Auto) 0.22 L (0.24-0.82) K/uL Eos # (Auto) 0.03 (0-0.50) K/uL Baso # (Auto) 0.01 (0-0.2) K/uL Immature Gran # (Auto) 0.02 (0.00-0.02) K/uL Sodium 140 (136-145) mmol/L Potassium 3.4 L (3.5-5.1) mmol/L Chloride 110 H (98-107) mmol/L Carbon Dioxide 19 L (21-32) mmol/L Anion Gap 11 (3-11) BUN 31 H (6-23) mg/dl Creatinine 1.77 H (0.6-1.4) mg/dl Est Cr Clr Drug Dosing 47.7 ml/min Est GFR ( Amer) 43.8 ml/min Est GFR (Non-Af Amer) 37.8 ml/min BUN/Creatinine Ratio 17.5 (10-20) Glucose 186 H (70-99(Fasting)) mg/dl POC Glucose 176 H (70-99) mg/dl Calcium 8.0 L (8.5-10.1) mg/dl 04/04/22 04/04/22 04/04/22 Range/Units 19:57 15:52 11:15 WBC (4.8-10.8) K/ul RBC (4.63-6.08) M/uL Hgb (14.0-18.0) g/dl Hct (40.1-51.0) % MCV (80.0-100.0) fL MCH (25.0-34.0) pg MCHC (32.0-36.0) g/dL RDW Std Deviation (36.4-46.3) fL RDW Coeff of Zohra (11.5-14.5) % Plt Count (130-400) K/uL MPV (9.4-12.4) fL Immature Gran % (Auto) % Neut % (Auto) % Lymph % (Auto) % [place] % (Auto) % Eos % (Auto) % Baso % (Auto) % Neut # (Auto) (1.4-6.5) K/uL Lymph # (Auto) (1.2-3.4) K/uL [place] # (Auto) (0.24-0.82) K/uL Eos # (Auto) (0-0.50) K/uL Baso # (Auto) (0-0.2) K/uL Immature Gran # (Auto) (0.00-0.02) K/uL Sodium (136-145) mmol/L Potassium (3.5-5.1) mmol/L Chloride (98-107) mmol/L Carbon Dioxide (21-32) mmol/L Anion Gap (3-11) BUN (6-23) mg/dl Creatinine (0.6-1.4) mg/dl Est Cr Clr Drug Dosing ml/min Est GFR ( Amer) ml/min Est GFR (Non-Af Amer) ml/min BUN/Creatinine Ratio (10-20) Glucose (70-99(Fasting)) mg/dl POC Glucose 239 H 136 H 189 H (70-99) mg/dl Calcium (8.5-10.1) mg/dl Diagnostic Findings CT SCAN OF THE ABDOMEN AND PELVIS WITH IV CONTRAST CLINICAL HISTORY: Generalized abdominal pain. Nausea and vomiting. COMPARISON STUDY: Abdominal CT dated 12/14/2021. TECHNIQUE: Following the IV administration of 94 cc of Optiray 350, CT scan of the abdomen and pelvis is performed from the lung bases to the proximal femora. Images are reviewed in the axial, sagittal, and coronal planes. IV contrast was administered without complication. Note that the examination was performed in suboptimal fashion without oral and IV contrast. A dose lowering technique was utilized adhering to the principles of ALARA. CT DOSE: 1479.82 mGy.cm FINDINGS: Lung bases: The heart is normal in size and without pericardial effusion. The coronary arteries are densely calcified. There is dense left basilar consolidation. Milder patchy groundglass consolidation is seen at both lung bases. No pleural effusion is identified. There are scattered calcified granulomas. Liver: The contrast-enhanced liver is enlarged, measuring 21 cm in length. The liver demonstrates diffusely diminished attenuation indicating steatosis. There is no intrahepatic biliary ductal dilatation. The hepatic veins and portal veins are patent. Gallbladder: Surgically absent noting clips in the gallbladder fossa. Spleen: Normal in size and attenuation. Pancreas: The pancreas is moderately atrophic and grossly unremarkable. Adrenal glands: Unremarkable. Kidneys: The right kidney is surgically absent. The contrast-enhanced left kidney is normal in size and without hydronephrosis. The left kidney enhances homogeneously. An indeterminant 14 mm enhancing lesion is seen in the lower pole of left kidney on image #256. Abdominal vasculature: The abdominal aorta is normal in course and caliber noting advanced atherosclerotic calcification. Bowel: There is postoperative change from right hemicolectomy with ileocolic anastomosis. The appendix is surgically absent. There is laxity of the ventral abdominal wall with diastases of the rectus musculature. There is a small bowel containing hernia in the right ventral abdomen seen on image #281 and a small bowel containing hernia in the lateral right lower quadrant abdominal wall seen on image #293. There is diffuse distention of the small bowel and the right colon. Proximal small bowel loops measure up to 5.5 cm diameter. The loop of small bowel exiting the lateral right lower quadrant hernia is focal decompressed (axial image #350); however, the more distal small bowel loops are distended with gas and fluid. There is no pneumatosis intestinalis or portal venous gas. No thick walled small bowel loops are identified. The distal colon is normal in caliber. Peritoneum: There is no intraperitoneal free air or abdominal ascites. There is a fat-containing umbilical hernia. Lymphadenopathy: None. Pelvic viscera: The prostate gland is diminutive and heterogeneous. The bladder is decompressed and grossly unremarkable. There are bilateral fat-containing inguinal hernias. Skeletal structures: The skeletal structures are heterogeneously osteopenic. There is moderate lumbosacral spondylosis. No lytic or blastic lesions are seen. Healed left-sided rib fractures are noted. IMPRESSION: 1. There is diffuse distention of the small bowel and right colon, similar in appearance to 12/14/2021. 2. There is postoperative change from right hemicolectomy with ileocolic anastomosis, and 2 small bowel containing hernias are unchanged. 3. The loop of small bowel exiting the lateral right lower quadrant hernia is focally decompressed; however, the more distal small bowel is distended as is the left colon. Again, this is similar in appearance to 12/14/2021. The appearance favors ileus, with a low-grade/developing small bowel obstruction considered less likely but not excluded. Clinical correlation will be essential. 4. No intraperitoneal free air is seen. No thick walled bowel loops are identified and there is no pneumatosis intestinalis or portal venous gas. 5. There is dense left basilar consolidation, with milder patchy groundglass consolidation in the right lower lung. The appearance favors an infectious/infla mmatory pneumonitis and clinical correlation will be required. 6. Hepatomegaly and hepatic steatosis. 7. A 14 mm left renal lesion shows contrast enhancement when compared to 12/14/2021. A renal neoplasm is the diagnosis of exclusion and follow up with urology is recommended. 8. Additional findings as above.
--- NOTE | 2022-04-05 13:55 | XRay Report ---
XR KUB/Abdomen 1 view CLINICAL HISTORY: Follow up on Ileus TECHNIQUE: 1 view of the abdomen was obtained. Comparison: Comparison is made to abdomen radiograph FINDINGS: Lung bases are unremarkable. Degenerative changes are seen in the visualized skeleton. Interval incre ase in numerous dilated large and small bowel loops. IMPRESSION: Interval worsening of gaseous distention of large and small bowel loops compatible with worsening ile us versus partial small bowel obstruction. ACT 112: Negative or not required by law. Electronically signed by: Parker Tripathi M.D. 04/05/2022 1:52 PM
--- NOTE | 2022-04-05 14:42 | Discharge Summary ---
Date of Service April 05, 2022 Admission HPI Per Admitting Provider History obtained from patient and records Past medical history significant for multiple myeloma status post HSCT on chemotherapy and acyclovir suppression treatment, CAD, paroxysmal A. 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 The cough is productive with mucopurulent discharge. It was associated with hemoptysis since 1 AM today morning. Patient reports 6 episodes of cough with hemoptysis so far prior to the presentation. The hemoptysis episodes are mostly mixed with sputum. He also complains of subjective fever for past 2 days; T-max measured at home of 100.7 F. He reports pain on lower back and left lower side of his chest which increases more on coughing. He reports generalized weakness as well. Patient past medical history was reviewed. He has history of multiple myeloma; status post autologous stem cell transplantation in [place] in 09/05. He is currently on Revlimid 3 weeks on, 1 week off. He started the cycle about 3 days ago. He is on dexamethasone 20 mg every Monday. He takes insulin Basaglar 100 units on Monday to Monday; takes 60 units on other days. He is also on Trulicity. He has history of A. fib, DVT on Eliquis. On presentation to the ED, his temperature was 37.6 C, normotensive and saturating well in room air. Lab work showed pancytopenia; hemoglobin 10.1 which is similar to his last lab work. BMP was consistent with history of CKD. His Pro-Reyes was elevated. Chest x-ray did not show any acute finding. CT angio chest showed consolidation of left lower lobe and findings consistent with the same side. Patient was given dose of ceftriaxone and azithromycin and was admitted to telemetry floor. 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 Not in any distress. Morbidly obese. Respiratory: Decreased breath sound at left lower base with few crackles. Cardiovascular: RRR, no murmur, no edema Vessels: no JVD or carotid bruit Chest: normal inspection of chest Abdomen: normal bowel sounds, soft, nontender, no hepatosplenomegaly Musculoskeletal: no cyanosis or clubbing, extremities motor strength 5/5 Skin: no rashes, warm and dry normal turgor Neurologic: PERRL, EOMI, accommodation nl, no face palsy, no dysarthria CN's II- XI intact bilaterally and moves all extremities Psychiatric: A+Ox3, euthymic affect Lymphatic: no cervical or axillary lymphadenopathy : deferred Principal Diagnosis Left lower lobe pneumonia Ileus Multiple myeloma Discharge Exam Constitutional: Alert, oriented x3; lying comfortably in bed. Not in any distress. Morbidly obese. Respiratory: Decreased breath sound at left lower base with few crackles. Cardiovascular: RRR, no murmur, no edema Vessels: no JVD or carotid bruit Chest: normal inspection of chest Abdomen: Soft, nontender. Bowel sound present. Musculoskeletal: no cyanosis or clubbing, extremities motor strength 5/5 Skin: no rashes, warm and dry normal turgor Neurologic: PERRL, EOMI, accommodation nl, no face palsy, no dysarthria CN's II- XI intact bilaterally and moves all extremities Psychiatric: A+Ox3, euthymic affect Lymphatic: no cervical or axillary lymphadenopathy : deferred Discharge Data Allergies Allergy/AdvReac Type Severity Reaction Status Date / Time doxycycline Allergy Diarrhea Verified 12/11/21 00:42 latex Allergy Rash Verified 12/11/21 00:42 Consultations 04/02/22 14:04 ED Decision to Admit Stat 04/04/22 11:14 Consult General Surgery Routine Ordered Studies 04/02/22 11:37 CT cervical spine wo con Stat CT head/brain wo con Stat 04/02/22 13:08 CT angio chest PE protocol Stat 04/04/22 11:53 CT Abd and Pelvis [CT abd pelvis IV con only] Routine Hospital Course (1) Left lower lobe pneumonia: (2) Ileus: (3) Multiple myeloma: (4) DVT (deep venous thrombosis): (5) Paroxysmal A-fib: (6) Type 2 diabetes mellitus: (7) CKD (chronic kidney disease): (8) Left renal mass: Plan Patient is a 71-year-old male Past medical history significant for multiple myeloma status post HSCT on chemotherapy and acyclovir suppression treatment, CAD, paroxysmal A. 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 On presentation to the ED, his temperature was 37.6 C, normotensive and saturating well in room air. Lab work showed pancytopenia; hemoglobin 10.1 which is similar to his last lab work. BMP was consistent with history of CKD. His Pro-Reyes was elevated. Chest x-ray did not show any acute finding. CT angio chest showed consolidation of left lower lobe. Patient was given dose of ceftriaxone and azithromycin and was admitted to telemetry floor. Overnight, patient spiked fever; ceftriaxone was escalated to cefepime. He started to show signs of improvement with resolution of cough and hemoptysis. On 04/04, patient had multiple episode of vomiting. CT abdomen pelvis showed diffuse distention of small bowel and right colon similar to 12/14/2021. Surgery was consulted for comanagement. He was managed conservatively with n.p.o., IV fluids and bowel rest. He gradually improved and was started on clear liquid diet and advance further. On the day of discharge, patient was tolerating diet well and was having bowel movement. X-ray KUB showed persistent ileus slightly worsening. However, patient was clinically doing well. Patient was discharged home with 5 more days of antibiotics. On CT abdomen pelvis, he was found to have 14 mm renal mass on left side. He was informed regarding the finding. His oncologist was also informed. He was asked to follow-up with the primary care doctor and get urology referral to follow-up on it. Total Time Total Time Spent Total Time Spent (In Minutes): 35 Total Time Includes: Examination of the Patient, Discharge Planning, Medication Reconciliation, Communication With Other Providers and Other Discharge Plan Discharge Items Patient Disposition: Home - Self-Care Reason For Visit: PNEUMONIA Discharge Diagnosis: Left lower lobe pneumonia: Ileus Activity: Resume your previous activity Non-emergency contact: Primary Care Provider Call non-emergency contact if: you have any medication questions and your symptoms worsen Follow-up/Referrals: Stephany Manjarrez, [Outside Practitioners] - (*Dr Cardona has retired, Dr Manjarrez can see you in [place]* Date & Time 04/12/2022 11:00 AM Provider Stephany Manjarrez DO Department [facility], [place] ) Diet: Regular Addtl Attending Provider Instructions: You are admitted to the hospital with left lower lobe pneumonia which was found in the CT scan of the chest. You are prescribed cefdinir 300 mg twice daily for 5 more days to complete the antibiotic course. Please coal picker the medication from your pharmacy. You are found to have ileus on the CT abdomen/pelvis. Please advance diet as tolerated. Eating small meals with low fiber. CT abdomen and pelvis showed 14 mm left renal lesion with contrast enhancement. You will need evaluation by urology. Please discuss the finding with your primary care doctor and oncology. Please follow-up with her primary care doctor and oncologist. Continue all your other medication as prescribed before. Pending Studies at Discharge: No Stand-Alone Forms: My [facility], Smoking Cessation Medications and DC Order Prescriptions: New cefdinir 300 mg capsule 300 mg PO BID 5 Days Qty: 10 0RF Continued acyclovir 800 mg tablet 800 mg BID duloxetine 60 mg capsule,delayed release(DR/EC) 60 mg PO BID losartan 25 mg tablet 50 mg PO DAILY metoprolol succinate 50 mg tablet extended release 24 hr 50 mg PO DAILY Eliquis 5 mg tablet 5 mg BID Trulicity 3 mg/0.5 mL pen injector 3 mg SUBCUT WK fenofibrate nanocrystallized 48 mg tablet 48 mg PO DAILY omeprazole 40 mg capsule,delayed release(DR/EC) 40 mg DAILY rosuvastatin 40 mg tablet 40 mg DAILY trazodone 100 mg tablet 100 mg HS ferrous gluconate 324 mg (38 mg iron) tablet 325 mg DAILY magnesium oxide 400 mg DAILY simethicone 125 mg PO DAILY sertraline 200 mg Capsule 200 mg PO DAILY insulin glargine [Lantus Solostar U-100 Insulin] 100 unit/mL (3 mL) Insulin Pen 76 unit SUBCUT DAILY cholecalciferol (vitamin D3) 2,000 units PO DAILY multivitamin 1 tab DAILY Acetaminophen Extra Strength 1 tab Q4 PRN (Reason: Pain) Lactobacillus acidophilus 1 tab DAILY Discharge Orders: Discharge Order (Routine); Ordered 04/05/22 Ordered By: Sahil Calero/Other Patient Handouts: Managing Type 2 Diabetes Admission Data Admit Date/Time: 04/02/22 14:36 Attending Provider: Sahil Beckwith Admit Provider: Sahil Beckwith Primary Care Provider: Erick Cardona Other Providers: Sahil Beckwith ; Bill Cervantes Other Interventions: Discharge Summary Assessment (RN) Last Done: 04/05/22 12:20
== END 2022-04-05 16:00 | disposition home or self-care (01) | DRG 194 ==
LOC: ED 11:22 → 2S 14:36
DX: Z88.1 Allergy status to other antibiotic agents; Z79.4 Long term (current) use of insulin; Z68.39 Body mass index [BMI] 39.0-39.9, adult; I12.9 Hypertensive chronic kidney disease with stage 1 through stage 4 chronic kidney disease, or unspecified chronic kidney disease; Z79.01 Long term (current) use of anticoagulants; D84.821 Immunodeficiency due to drugs; Z86.711 Personal history of pulmonary embolism; E78.5 Hyperlipidemia, unspecified; Z95.828 Presence of other vascular implants and grafts; Z91.040 Latex allergy status; K56.7 Ileus, unspecified; J18.9 Pneumonia, unspecified organism; E11.9 Type 2 diabetes mellitus without complications; C90.00 Multiple myeloma not having achieved remission; E66.01 Morbid (severe) obesity due to excess calories; F39 Unspecified mood [affective] disorder; Z86.718 Personal history of other venous thrombosis and embolism; N18.9 Chronic kidney disease, unspecified